=== PATIENT | female | born 1935 | race Caucasian/White ===

== ENCOUNTER 2020-12-02 08:48 | Outpatient (CLI) | payer MEDICARE, SELFPAY ==
--- NOTE | ~2020-12-02 | XR_ITS ---
EXAMINATION: XR chest 2V EXAM DATE: 12/02/2020 09:07 INDICATION: D64.9 - Anemia, unspecified, shortness of breath. TECHNIQUE: Frontal and lateral projections of the chest obtained and reviewed. There is no prior enio dy for comparison. FINDINGS: Cardiac monitoring device. The lungs are clear. There are no pleural effusions. The card iomediastinal silhouette is within normal limits. There is no pneumothorax suspected. The bones and soft tissues are unremarkable. There is aortic arteriosclerosis. IMPRESSION: No acute cardiopulmonary findings. Reviewed, dictated and finalized at location B. [employer]
--- NOTE | ~2020-12-02 | CT_ITS ---
EXAMINATION: CT abdomen pelvis w con INDICATION: Abnormal weight loss TECHNIQUE: Computed tomographic images of the abdomen and pelvis were obtained after the administrati on of 100 cc of Omnipaque 350 intravenous contrast. The dose-length product (DLP) was 345.20 mGy-cm. Automated exposure control and iterative reconstruction technique were employed. COMPARISON: None available FINDINGS: Minimal dependent atelectasis is present in the lung bases. The heart size is normal. Cysts of the liver measure up to 4 mm in the right hepatic lobe. The spleen, pancreas, gallbladder, and ad renal glands are normal. The kidneys are unremarkable. There is calcified atherosclerosis of the aort a and many of the other arteries. No pathologically enlarged abdominal or pelvic lymph nodes are iden tified. There is no free intraperitoneal gas or evidence of bowel obstruction. There is mild lumbar s pondylosis. IMPRESSION: 1. No CT correlate for the patient's symptoms. Reviewed, dictated and finalized at location A. 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
[2020-12-02 10:27] LABS: Basophils Percent Auto 0.6 % (0.2-1.2); Eosinophils Absolute Auto 0.1 K/mm3 (0-0.3); Eosinophils Percent Auto 1.3 % (0-4.4); Hematocrit 34.1 % (37.0-47.0); Hemoglobin 10.7 g/dL (12.0-15.0); Immature Granulocyte Absolute 0.03 K/mm3 (0.00-0.031); Immature Granulocyte Percent A 0.6 % (0-0.5); Immature Platelet Fraction Pct 7.3 % (0.9-11.2); Immature Reticulocyte Fraction 10.6 % (3.0-15.9); Lymphocytes Absolute Auto 1.21 K/mm3 (0.9-3.2); Lymphocytes Percent Auto 22.3 % (18.3-44.2); Mean Corpuscular HGB Conc 31.4 g/dl (32-36); Mean Corpuscular Hemoglobin 29.6 pg (26-34); Mean Corpuscular Volume 94.5 fl (80-100); Mean Platelet Volume 11.6 fl (7.4-10.4); Monocytes Absolute Auto 0.4 K/mm3 (0.1-0.6); Monocytes Percent Auto 8.1 % (2.6-8.5); Neutrophils Absolute Auto 3.7 K/mm3 (1.3-6.7); Neutrophils Percent Auto 67.1 % (45.5-73.1); Platelet Count Result 140 k/mm3 (150-375); Red Blood Count 3.61 M/mm3 (4.2-5.4); Reticulocyte Hemoglobin Conten 32.9 pg (28.2-35.7); Reticulocyte Percent 1.32 % (0.7-4.3); Reticulocytes Absolute 0.05 B/L (32.2-175.7); White Blood Count 5.4 K/mm3 (4.5-10.0)
== END 2020-12-02 08:49 | disposition home or self-care (01) ==
PROVIDERS: PCP Family Medicine; Visit Provider Physician Assistant Medical
DX: R63.4 Abnormal weight loss (principal); D64.9 Anemia, unspecified; I25.10 Atherosclerotic heart disease of native coronary artery without angina pectoris; M47.816 Spondylosis without myelopathy or radiculopathy, lumbar region
CPT/HCPCS: 36415; 71046; 74177; 85025; 85046; 85055; Q9967

== ENCOUNTER 2020-12-16 08:06 | Outpatient (CLI) | payer MEDICARE, SELFPAY ==
[2020-12-16 08:43] LABS: Alveolar/Arterial O2 Gradient 10.5 mmHg; Carboxyhemoglobin 0.2 % THb (0-2.0); Fractional Inspired Oxygen 21 %; HCO3 ABG 30.6 mEq/l (22.0-26.0); Methemoglobin ABG 0.2 %THb (0-1.5); Oxygen Content ABG 14.8 %vol (16.0-22.0); Oxygen Saturation ABG 93.8 % (95.0-100.0); Oxyhemoglobin 92.6 % THb (90.0-100.0); PCO2 ABG 55.6 mmHg (35.0-45.0); PO2 ABG 72.7 mmHg (80.0-100.0); PO2 FiO2 Ratio Arterial Blood 3.46 %; Total Hemoglobin 11.3 g/dL (12.0-18.0); pH ABG 7.358 (7.350-7.450)
[2020-12-16 08:44] LABS: Device ROOM AIR; Modified Allen's Test Pass
[2020-12-16 09:29] LABS: Iron 62 ug/dL (37-170)
[2020-12-16 09:39] LABS: Percent Iron Saturation 24 % (20-50)
[2020-12-16 10:30] LABS: Folic Acid > 20.0 ng/mL (2.76->20)
== END 2020-12-16 08:07 | disposition home or self-care (01) ==
PROVIDERS: PCP Family Medicine; Referring Provider Physician Assistant Medical
DX: D64.9 Anemia, unspecified (principal); R06.02 Shortness of breath; R63.4 Abnormal weight loss
CPT/HCPCS: 36415; 36600; 82375; 82607; 82728; 82746; 82805; 83050; 83540; 83550

== ENCOUNTER 2021-07-15 20:22 | Inpatient (IN) | payer MEDICARE, SELFPAY ==
--- NOTE | ~2021-07-15 | XR_ITS ---
XR hip LT 1V w AP pelvis DATE: 07/16/2021 20:59 INDICATION: Left bipolar hip replacement TECHNIQUE: Portable postoperative AP and crosstable lateral views of left hip COMPARISON: 07/15/2021 pelvis and left hip FINDINGS: There is resection of the left femoral head following left subcapital femoral neck fracture and placement of left bipolar hip prosthesis. There is normal alignment at the left hip. There is surgical drain subcutaneous emphysema along the left hip. Diffuse osteopenia. Right hip osteoarthritis. The pubic symphysis and sacroiliac joints are intact. IMPRESSION: Left bipolar hip replacement for recent subcapital left femoral neck fracture Reviewed, dictated and finalized at location A. IMPRESSION: Left bipolar hip replacement for recent subcapital left femoral nec k fracture
--- NOTE | ~2021-07-15 | XR_ITS ---
EXAMINATION: XR chest 1V portable DATE: 07/18/2021 10:10 INDICATION: Syncope. TECHNIQUE: A single frontal view of the chest was obtained. COMPARISON: Chest single view 07/15/2021, CT abdomen and pelvis 12/02/2020 FINDINGS: There is mild atelectasis in left mid and lower lung zones. No pleural effusion or pneumoth orax. The heart size is normal. There is an electronic implant overlying left chest. IMPRESSION: 1. Mild atelectasis in left mid and lower lung zones. Reviewed, dictated and finalized at location A.
--- NOTE | ~2021-07-15 | XR_ITS ---
EXAMINATION: XR hip RT 1V EXAM DATE: 07/16/2021 06:50 INDICATION: fx left hip. Right hip for orthopedic reference. TECHNIQUE: 2 frontal projections of the right hip. Comparison is made to prior examination from 2020. FINDINGS: There is moderate right hip primary osteoarthritis. There are no acute fractures or disloca tions identified. There is no subcutaneous gas. The soft tissue is unremarkable. There are no rad iopaque foreign bodies. IMPRESSION: Moderate right hip osteoarthritis. Reviewed, dictated and finalized at location A.
--- NOTE | ~2021-07-15 | XR_ITS ---
XR chest 1V DATE: 07/15/2021 21:04 INDICATION: Fall. Left subcapital femoral neck fracture TECHNIQUE: AP chest COMPARISON: PA and lateral chest FINDINGS: Electronic monitor is noted overlying the medial upper left thorax. Normal heart size. Aortic calcification. Diffuse osteopenia. There is moderate elevation right leaf of the diaphragm. No pulmonary infiltrate or consolidation, pleural effusion or pulmonary vascular congestion or pneumo thorax. IMPRESSION: No active cardiopulmonary disease Reviewed, dictated and finalized at location A.
--- NOTE | ~2021-07-15 | US_ITS ---
EXAMINATION: US carotid duplex BI EXAM DATE: 07/16/2021 10:39 INDICATION: Syncope. TECHNIQUE: Grayscale, color and pulsed Doppler images of the cervical carotid arteries were obtained . The degree of vessel stenosis is placed in one of the following categories: normal, <50% stenosis, 50-69% stenosis, >=70% stenosis but less than near-occlusion, near-occlusion, or occlusion. Note that percent stenosis relative to normal distal artery lumen diameter is indirectly measured from velocit y measurements as described by Win, et al. Radiology 2003; 229:340-346. There is no prior study fo r comparison. FINDINGS: RIGHT SIDE: Right common carotid artery peak systolic velocity (PSV in cm/s): 68 Right bulb/internal carotid artery peak systolic velocity (PSV in cm/s): 89 Right internal carotid artery end diastolic velocity (EDV in cm/s): 10 Right ICA/CCA peak systolic ratio: 1.3 Right external carotid artery peak systolic velocity (PSV in cm/s): 68 Right vertebral artery antegrade flow: yes There is no focal plaque identified. LEFT SIDE: Left common carotid artery peak systolic velocity (PSV in cm/s): 104 Left bulb/internal carotid artery peak systolic velocity (PSV in cm/s): 92 Left internal carotid artery end diastolic velocity (EDV in cm/s): 13 Left ICA/CCA peak systolic ratio: 0.9 Left external carotid artery peak systolic velocity (PSV in cm/s): 91 Left vertebral artery antegrade flow: yes There is no focal plaque identified. IMPRESSION: 1. Normal right internal carotid artery. 2. Normal left internal carotid artery. > Reviewed, dictated and finalized at location A.
--- NOTE | ~2021-07-15 | XR_ITS ---
XR hip LT 2V w AP pelvis DATE: 07/15/2021 21:03 INDICATION: Fall. Left hip pain TECHNIQUE: AP pelvis. AP and cross and lateral views of left hip COMPARISON: None FINDINGS: There is diffuse osteopenia. Normal alignment at the pubic symphysis and sacroiliac joints. No evidence of hip dislocation. There is mild bilateral hip osteoporosis. There is a left subcapital femoral neck fracture with mild superolateral displacement. IMPRESSION: Left subcapital femoral neck fracture Reviewed, dictated and finalized at location A.
--- NOTE | ~2021-07-15 | CT_ITS ---
EXAMINATION: CT brain wo con DATE: 07/19/2021 18:39 INDICATION: Syncope TECHNIQUE: Computed tomography (CT) of the head was performed without intravenous contrast. The mA wa s adjusted according to patient size. Iterative reconstruction technique was employed. Exam dose: 60 5.33 mGy-cm total exam DLP. COMPARISON: 09/22/2016 CT brain FINDINGS: Bilateral vertebral artery, basilar artery and prominent bilateral carotid siphon internal carotid artery calcifications. There is patchy nonspecific diminished attenuation of the subcortical and periventricular cerebral wh ite matter, likely due to chronic small vessel ischemic changes. Chronic left basal ganglia lacunar infarcts. No intracranial mass lesion or hemorrhage or recent cerebrovascular accident. No subdural or epidural hematoma. No fracture or bone destruction of the cranial vault. The mastoid air cells are normally developed and aerated. Included paranasal sinuses are unremarkable . IMPRESSION: Cerebral atherosclerosis and chronic small vessel ischemic changes of the cerebral white matter Chronic left basal ganglia lacunar infarcts Reviewed, dictated and finalized at Location A. Reviewed, dictated and finalized at location A.
--- NOTE | ~2021-07-15 | XR_ITS ---
XR surgery orthopedic DATE: 07/16/2021 20:04 INDICATION: Left bipolar hip replacement TECHNIQUE: Portable intraoperative radiograph COMPARISON: 07/11/2021 left hip FINDINGS: There is resection of the femoral head and placement of a femoral broach into the proximal femoral shaft. IMPRESSION: Resected femoral head and placement of femoral broach Reviewed, dictated and finalized at Location A. Reviewed, dictated and finalized at location A.
[2021-07-15 20:23] VITALS: BP 167/62; PULSE 88; RESP 18; TEMP 37.1; O2SAT 100
--- NOTE | 2021-07-15 20:47 | ECG_ITS ---
Measurements Intervals [place] Rate: 70 P: NE: 0 QRS: -32 QRSD: 154 T: 125 QT: 464 QTc: 503 Interpretive Statements SINUS RHYTHM LEFT AXIS DEVIATION LEFT BUNDLE BRANCH BLOCK BASELINE ARTIFACT- I, II, III, AVR, AVL, AVF, V1-V6 ABNORMAL ECG Electronically Signed On 07-16-2021 7:59:01 CDT by Alessandro Tracy D.O.
[2021-07-15 21:31] LABS: Basophils Percent Auto 0.4 % (0.2-1.2); Eosinophils Absolute Auto 0.1 K/mm3 (0-0.3); Eosinophils Percent Auto 0.8 % (0-4.4); Hematocrit 34.4 % (37.0-47.0); Hemoglobin 10.8 g/dL (12.0-15.0); Immature Granulocyte Absolute 0.05 K/mm3 (0.00-0.031); Immature Granulocyte Percent A 0.5 % (0-0.5); Lymphocytes Absolute Auto 1.19 K/mm3 (0.9-3.2); Lymphocytes Percent Auto 10.9 % (18.3-44.2); Mean Corpuscular HGB Conc 31.4 g/dl (32-36); Mean Corpuscular Hemoglobin 29.1 pg (26-34); Mean Corpuscular Volume 92.7 fl (80-100); Mean Platelet Volume 11.3 fl (7.4-10.4); Monocytes Absolute Auto 0.7 K/mm3 (0.1-0.6); Neutrophils Absolute Auto 8.9 K/mm3 (1.3-6.7); Neutrophils Percent Auto 81.4 % (45.5-73.1); Platelet Count Result 144 k/mm3 (150-375); Red Blood Count 3.71 M/mm3 (4.2-5.4); Red Cell Distribution Width 12.3 % (11.5-14.5); White Blood Count 10.9 K/mm3 (4.5-10.0)
[2021-07-15 21:42] LABS: Anion Gap 9 mmol/L (8-16); Blood Urea Nitrogen 16 mg/dL (7-17); Calcium 9.9 mg/dL (8.4-10.2); Carbon Dioxide 30 mmol/L (22-30); Chloride 100 mmol/L (98-107); Estimated CRCL calculation 37 ml/min; Estimated Glomerular Filt Rate 59; Glucose 110 mg/dL (65-110); Potassium 3.9 mmol/L (3.4-5.0); Sodium 139 mmol/L (137-145)
[2021-07-15] MEDS: ONDANSETRON INJ 4 MG/2 ML VIAL IV PUSH (21:43)
[2021-07-15] MEDS: HYDROmorphone HCL INJ (*CRX) 1 MG/ML SYR IV PUSH ×2 (21:43→23:52)
[2021-07-15 22:08] VITALS: BP 149/81; PULSE 74; RESP 24; O2SAT 100
--- NOTE | 2021-07-15 22:19 | ED.FALL ---
HPI - Fall General Chief Complaint: Fall Stated Complaint: fall/hip pain Time Seen by Provider: 07/15/21 21:06 Source: patient Mode of arrival: ambulatory Limitations: no limitations History of Present Illness HPI Narrative: Patient is an 85-year-old female complaining of left hip pain, 10 out of 10, dull, nonradiating, after she lost her balance and fell on her left side while trying to sit down to have dinner. Patient denies any head, neck, back or any other extremity pain/injury. Related Data Home Medications Medication Instructions Recorded Confirmed aspirin 81 mg tablet,delayed 81 mg PO DAILY 11/26/20 05/29/21 release donepezil 10 mg tablet 10 mg PO ONCE 11/26/20 05/29/21 duloxetine 60 mg capsule,delayed 60 mg PO DAILY 11/26/20 05/29/21 release ezetimibe 10 mg tablet 10 mg PO DAILY 11/26/20 05/29/21 glucosamine HCl 1,500 mg tablet 1,500 mg PO DAILY 11/26/20 05/29/21 hydrochlorothiazide 12.5 mg tablet 12.5 mg PO DAILY 11/26/20 05/29/21 amlodipine 2.5 mg tablet 2.5 mg PO DAILY 05/29/21 05/29/21 ferrous sulfate 325 mg (65 mg 325 mg PO DAILY 05/29/21 05/29/21 iron) tablet,delayed release memantine 10 mg tablet 10 mg PO BID tablet 05/29/21 05/29/21 atorvastatin 07/15/21 fexofenadine 60 mg PO Q12H 07/15/21 mirabegron [Myrbetriq] mg PO 07/15/21 nebivolol [Bystolic] mg 07/15/21 potassium chloride meq PO 07/15/21 quinapril mg 07/15/21 Allergies Allergy/AdvReac Type Severity Reaction Status Date / Time penicillin G Allergy Unknown BP ISSUES Verified 07/15/21 22:32 MAYBE Sulfa (Sulfonamide Allergy Unknown BP ISSUES Verified 07/15/21 22:32 Antibiotics) MAYBE Review of Systems Review of Systems: All systems reviewed & are unremarkable except as noted in HPI and below Constitutional: Constitutional: Denies body ache(s), Denies chills, Denies excessive sweating, Denies fatigue, Denies fever(s), Denies headache(s), Denies lethargy, Denies malaise, Denies weakness and Denies weight loss Eyes: Eyes: Denies blurry vision, Denies change in vision and Denies loss of vision ENT: Denies dizziness, Denies ear discharge, Denies headache(s), Denies lip swelling, Denies epistaxis, Denies nasal congestion, Denies neck pain, Denies throat swelling and Denies tongue swelling Cardiovascular: Cardiovascular: Denies chest pain, Denies chest pain at rest, Denies chest pain with activity, Denies diaphoresis, Denies rapid heart rate, Denies edema, Denies irregular heart rhythm, Denies lightheadedness, Denies palpitations, Denies dyspnea and Denies dyspnea on exertion Respiratory: Respiratory: Denies chest congestion, Denies cough, Denies hemoptysis, Denies dyspnea and Denies dyspnea on exertion Gastrointestinal: Gastrointestinal: Denies abdominal pain, Denies melena, Denies hematochezia, Denies diarrhea, Denies nausea, Denies vomiting and Denies hematemesis Musculoskeletal: Musculoskeletal: Denies neck pain and Denies numbness Neurologic: Denies Abnormal speech present, Denies abnormal gait, Denies confusion, Denies dizziness, Denies headache(s), Denies focal weakness, Denies loss of vision, Denies numbness, Denies Other visual disturbances, Denies Sensory deficit (Neuro) and Denies weakness Psychiatric: Psychiatric: Denies confusion, Denies depression, Denies auditory hallucinations, Denies homicidal ideation and Denies suicidal ideation Endocrine: Endocrine: Denies cold intolerance, Denies excessive sweating, Denies fatigue, Denies heat intolerance and Denies palpitations Hematologic/Lymphatic: Hematologic/Lymphatic: Denies easy bleeding and Denies easy bruising Allergic/Immunologic: Allergic/Immunologic: Denies lip swelling, Denies throat swelling and Denies tongue swelling PMFSH Past Medical History Medical History Anemia 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
[2021-07-15 23:22] LABS: INR 0.9; Prothrombin Time 12.4 Seconds (11.1-14.7)
[2021-07-15 23:23] LABS: Partial Thromboplastin Time 27.7 SECONDS (22.3-36.8)
[2021-07-15 23:51] VITALS: BP 151/77; PULSE 66; RESP 16; O2SAT 100
[2021-07-16] VITALS (16 sets, daily range): BP systolic 118–166; BP diastolic 49–78; PULSE 53–77; RESP 12–19; TEMP 35.9–36.7; O2SAT 96–100; BMI 22.9
--- NOTE | 2021-07-16 | ECHO_ITS ---
Patient Info Name: Qian Cheek Age: 85 years : 1935 Gender: Female Ht: 71 in Wt: 164 lbs BSA: 1.93 m2 HR: 58 bpm BP: 118 / 50 mmHg Heart Rhythm: Sinus Rhythm Technical Quality: Good Exam Date: 07/16/2021 3:32 PM Exam Location: Echo Lab Exam Room: 243 Patient Status: Inpatient Admit Date: 07/15/2021 Staff Ordering Physician: Slava Garcia MD [employer] Project Manager: Sybil Arteaga RDCS Attending Provider: Juli Oakley DO Referring Physician: Radha CARVAJAL; Exam Type: CA echo doppler color flow Study Info Indications - LBBB SOB Complete two-dimensional, color flow and Doppler transthoracic echocardiogram is performed. Summary 1. Complete two-dimensional, color flow and Doppler transthoracic echocardiogram is performed. 2. Left ventricular chamber dimension is normal. 3. Left ventricular systolic function is normal, estimated at 65-70%. 4. There is mildly increased left ventricular wall thickness. 5. The left ventricular diastolic function is grade II diastolic dysfunction. 6. Left atrial chamber dimension is mildly enlarged. 7. Right atrial chamber dimension is mildly enlarged. 8. There is mild mitral valve regurgitation. 9. There is mild tricuspid valve regurgitation. 10. Mild pulmonary hypertension, estimated pulmonary arterial systolic pressure is 39 mmHg. Left Ventricle Left ventricular chamber dimension is normal. Left ventricular systolic function is normal, estimated at 65-70%. There is mildly increased left ventricular wall thickness. The left ventricular diastolic function is grade II diastolic dysfunction. Right Ventricle Right ventricular chamber dimension is normal. Right ventricular systolic function is normal. Left Atria Left atrial chamber dimension is mildly enlarged. Right Atria Right atrial chamber dimension is mildly enlarged. Aortic Valve The aortic valve is trileaflet. There is mild aortic valve sclerosis. There is no aortic valve stenosis. There is trace aortic valve regurgitation. Pulmonic Valve The pulmonic valve is normal. There is no pulmonic valve stenosis. There is trace pulmonic regurgitation. Mitral Valve The mitral valve has normal leaflets. There is no mitral valve stenosis. There is mild mitral valve regurgitation. Tricuspid Valve The tricuspid valve leaflets are normal. There is no significant tricuspid valve stenosis. There is mild tricuspid valve regurgitation. Mild pulmonary hypertension, estimated pulmonary arterial systolic pressure is 39 mmHg. Pericardium/Pleural The pericardium appears normal. There is no pericardial effusion. Inferior Vena Cava Normal inferior vena cava with >50% collapse upon inspiration consistent with elevated right atrial pressure, 10 mmHg. Aorta The aortic root size at the sinus of Valsalva is normal. The prox ascending aorta size is normal. Left Ventricular Outflow Tract Name Value Normal LVOT 2D LVOT Diameter 2.0 cm LVOT Doppler LVOT Peak Gradient 5 mmHg LVOT Mean Gradient 3 mmHg LVOT VTI
--- NOTE | 2021-07-16 00:37 | ADMGEN ---
This patient, Qian Cheek, was admitted to Medical Room 243-. Patient/family oriented to hospital policies and general routines including ID bracelet, bed and alarms, visiting hours, pain management, procedures, bathroom and other care routines, personal items, smoking policy, room service/diet, and visiting hours. Information on how to activate the Rapid Response Team has been discussed. Patient/Family are encouraged to report perceived risks to care and to ask questions if they do not understand what they are told or what they should do.
--- NOTE | 2021-07-16 02:00 | PM.IMHP ---
H&P: HPI History of Present Illness Date/Time: 07/16/21 01:30 Chief Complaint: Fall with hip pain Narrative: 85-year-old female with past medical history of hypertension, hyperlipidemia, COPD on chronic home O2 and frequent falls who presented to the ER via EMS from [facility] after a fall resulting in hip pain. she reports that she went to go get her dinner plate and take it back to her dining room Table before she got the table her body listed to the left and she fell on her left side. She did not lose consciousness. She reports that she had immediate pain after she fell and was not able to get up. She reports that she felt somewhat lightheaded just prior to falling but did not have loss of consciousness she had 2 falls within the last month. She was not utilizing her walker at the time of the fall. She reports that her pain is currently a 3/10 in intensity but with movement of her lower extremity the pain is quite severe. She reports that she has been chronically short of breath for many years and he has had increased shortness of breath over the last several months. However she has not had to increase her home O2 settings. She reports she just cannot get a deep breath. she has a chronic cough and tickle in the right side of her throat. She has not been having any fevers or chills. She denies any recent ill contacts. She has not been having any chest pain, lower extremity swelling or palpitations. She denies any significant cardiac history. She denies any difficulty with urinary frequency or urgency. A Galindo catheter was placed in the ER. She has been having difficulty having loose stools sometimes up to 4 loose stools a night. She reports that her stools are chronically black in appearance due to her medications. The appearance of her stools have not changed. Her hemoglobin has remained stable for the last year. She reports the stools are usually small in amount but frequent. They are usually soft and mushy but not necessary watery. She has had some mild intermittent nausea that she associates statement with her loose stools. She has not had any vomiting. She reports that her weight has been stable. At the time of my evaluation the patient was actively shaking/ tremor ring. She reports that she frequently does this especially in times of stress. She denies feeling chilled. Review of Systems Review of Systems: 12 systems were reviewed with pertinent positives and negatives per HPI. Except as documented in the HPI, all other systems were reviewed and are negative. 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 Aashish Bee. 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 They at age 80. Father Prostate carcinoma Mother Victim of tornado Social
[2021-07-16] MEDS: LACTATED RINGERS 1,000 ML 80 ML IV CONT (02:03)
[2021-07-16 06:30] LABS: Add Urine Microscopic? YES; Appearance Urine Clear (Clear); Bilirubin Urine Negative (Negative); Blood Urine Trace-lysed (Negative); Color Urine Yellow (Yellow); Glucose Urine UA Negative (Negative); Ketones Urine Negative (Negative); Leukocyte Esterase Ur Negative LEU/UL (Negative); Nitrate Urine Negative (Negative); Protein Urine Negative (Negative); pH Urine 8.5 (5.0-9.0)
[2021-07-16] MEDS: LEVOTHYROXINE SODIUM 100 MCG TABLET PO (06:36)
--- NOTE | 2021-07-16 07:02 | PM.CNOR ---
Assessment and Plan Additional Plan Patient is an 85-year-old female who was brought to the emergency room last night with a displaced left subcapital Transcervical femoral neck fracture. She fell caring a plate of food. When she feels poorly and unsteady she will use a walker when she feels healthy and well she will walk without any gait aid. She lost her balance and fell onto her left side injuring her left hip. She denies any other injury. She has a history of some residual symptoms after an ankle fracture many years ago. She does report chronic numbness in her feet. She lives in an independent living facility. Her daughter gives her her medications every day. She wishes to be a DNR status. She is currently. She pointed that out to make. Her past medical history is significant for chronic shortness of breath. She does use oxygen. She also has a history of heaviness in her chest which she believes is related to her heart and she takes a baby aspirin daily for that consideration. She is not sure if she has chest pain because of her heart or because of her lungs. She has 2 brothers that had heart attacks. She has never smoked. Her chest x-ray showed no acute cardiopulmonary disease. EKG is still pending from last night although it says that is ordered. On exam she was very alert and oriented. She has had moderate pain all night the left hip. I placed a pillow under the left knee and calf and she felt that made her more comfortable. I will check her pain medications and modify them accordingly. She has a palpable 2+ dorsalis pedis pulse in left foot. The left leg is shortened and externally rotated. She reports diminished light touch sensation in both feet but she does wiggle her toes up and down. The skin in the lower extremity is normal appearing. In she moves her neck without discomfort in her shoulders. Again she denies any other symptoms other than pain left hip. Impression patient has a displaced subcapital left femoral neck fracture. I have discussed with her the treatment options which would include non operative treatment and surgical treatment consisting of a bipolar partial hip replacement. She denies having any chronic groin or lateral hip pain prior to her fall. I have discussed the risk of mortality. I explained that studies show that there is risk of mortality that is significant with both surgical and nonsurgical surgical treatment of this type of fracture. She has increased comorbidities as well the puts her at increased risk over the average patient based on her oxygen dependence and the possibility of significant underlying heart disease. I feel we should consult Cardiology to evaluate her based on her history of chest heaviness and fact that she has had 2 falls recently and the hospitalist has advised me she has also been shaking these last 2 weeks as well, Intermittently. I have discussed with her that during surgery she would not be considered a DNR as any cardiac arrhythmia would be treated and the drop in blood pressure suddenly would be treated by Anesthesia which is somewhat incompatible with a DNR status and she understands that. She does not want to be nonambulatory and wants to have her hip repaired and understands the risk of mortality and would be willing to suspend the DNR status as long as appropriate during the immediate perioperative Time. She does not wish to have the hip treated non operatively. I have discussed other surgical risks such as infection and blood clots. She has no personal or family history of DVT in I explained that she would be on a blood thinner for 5 weeks postoperatively. I discussed with her that she will need to be in a assisted facility as I do not feel she would do well returning to her independent living environment until she is recovered enough for her to be alone safely again. I explained that there are other risks of complications with surgery as well fracture dislocat
--- NOTE | 2021-07-16 07:19 | P.PNIM_ITS ---
Progress Note: A&P Assessment and Plan (1) Closed fracture of neck of left femur: Qualifiers: Encounter type: initial encounter Qualified Code(s): S72.002A - Fracture of unspecified part of neck of left femur, initial encounter for closed fracture Code(s): S72.002A - Fracture of unspecified part of neck of left femur, initial encounter for closed fracture Status: Acute Assessment and Plan: * Fall that caused hip fracture * Hip and pelvis show Left subcapital femoral neck fracture * Cardiology consulted for risk assessment * moderate risk for pulmonary complications * ortho consulted thank you for your help * Surgical procedure scheduled for today * Ortho to manage post care. (2) Syncope and collapse: Code(s): R55 - Syncope and collapse Status: Acute Assessment and Plan: * Cardiology consulted * Frequent falls * Orthostatic blood pressure when safe from ortho * neuro consulted as well * Echo * Carotid doppler (3) Essential hypertension: Code(s): I10 - Essential (primary) hypertension Status: Acute Assessment and Plan: * Current blood pressure 118/50 * Continue quinapril 40mg PO daily, bystolic 10mg PO daily, hydrochlorothiazide 12.5mg PO daily, amlodipine 2.5mg PO daily * trend blood pressure * Adjust medications as needed. (4) Dementia: Code(s): F03.90 - Unspecified dementia without behavioral disturbance Status: Acute Assessment and Plan: * Continue Aricept 10mg PO daily and Namenda 10mg PO BID * Trazodone 150mg PO at night (5) COPD (chronic obstructive pulmonary disease): Qualifiers: COPD type: unspecified COPD Qualified Code(s): J44.9 - Chronic obstructive pulmonary disease, unspecified Code(s): J44.9 - Chronic obstructive pulmonary disease, unspecified Status: Acute Assessment and Plan: * No evidence of acute COPD exacerbation. * Atrovent and albuterol neb Q6hr PRN for shortness of breath. * IS (6) KAYLA on CPAP: Code(s): G47.33 - Obstructive sleep apnea (adult) (pediatric); Z99.89 - Dependence on other enabling machines and devices Status: Acute Assessment and Plan: * auto titrating CPAP has been ordered. (7) Major depression, recurrent, chronic: Code(s): F33.9 - Major depressive disorder, recurrent, unspecified Status: Acute Assessment and Plan: * Continue Duloxetine 60mg PO daily and trazodone 150mg PO at night * Adjust medications as needed (8) Mixed hyperlipidemia: Code(s): E78.2 - Mixed hyperlipidemia Status: Acute Assessment and Plan: * Atorvastatin 40mg PO daily on hold for now * Continue when needed (9) Tremor of unknown origin: Code(s): R25.1 - Tremor, unspecified Status: Acute Assessment and Plan: * Uncontrolled tremors * Could be from medications, or undiagnosed condition * Neurology consulted thank you for your recommendations * monitor symptoms Time Spent With Patient Time with patient: Greater than 35 minutes Subjective Date/time seen: 07/16/21 06:50 Interval history: Patient is an 85 year old female with a past medical history of HTN, HLD, and depression that presented after a fall. Patient stated that she has been falling more lately, and stated that it is more syncope. She also complains of tremors.
--- NOTE | 2021-07-16 07:19 | PM.IMPN ---
Progress Note: A&P Assessment and Plan (1) Closed fracture of neck of left femur: Qualifiers: Encounter type: initial encounter Qualified Code(s): S72.002A - Fracture of unspecified part of neck of left femur, initial encounter for closed fracture Code(s): S72.002A - Fracture of unspecified part of neck of left femur, initial encounter for closed fracture Status: Acute Assessment and Plan: Fall that caused hip fracture Hip and pelvis show Left subcapital femoral neck fracture Cardiology consulted for risk assessment moderate risk for pulmonary complications ortho consulted thank you for your help Surgical procedure scheduled for today Ortho to manage post care. (2) Syncope and collapse: Code(s): R55 - Syncope and collapse Status: Acute Assessment and Plan: Cardiology consulted Frequent falls Orthostatic blood pressure when safe from ortho neuro consulted as well Echo Carotid doppler (3) Essential hypertension: Code(s): I10 - Essential (primary) hypertension Status: Acute Assessment and Plan: Current blood pressure 118/50 Continue quinapril 40mg PO daily, bystolic 10mg PO daily, hydrochlorothiazide 12.5mg PO daily, amlodipine 2.5mg PO daily trend blood pressure Adjust medications as needed. (4) Dementia: Code(s): F03.90 - Unspecified dementia without behavioral disturbance Status: Acute Assessment and Plan: Continue Aricept 10mg PO daily and Namenda 10mg PO BID Trazodone 150mg PO at night (5) COPD (chronic obstructive pulmonary disease): Qualifiers: COPD type: unspecified COPD Qualified Code(s): J44.9 - Chronic obstructive pulmonary disease, unspecified Code(s): J44.9 - Chronic obstructive pulmonary disease, unspecified Status: Acute Assessment and Plan: No evidence of acute COPD exacerbation. Atrovent and albuterol neb Q6hr PRN for shortness of breath. IS (6) KAYLA on CPAP: Code(s): G47.33 - Obstructive sleep apnea (adult) (pediatric); Z99.89 - Dependence on other enabling machines and devices Status: Acute Assessment and Plan: auto titrating CPAP has been ordered. (7) Major depression, recurrent, chronic: Code(s): F33.9 - Major depressive disorder, recurrent, unspecified Status: Acute Assessment and Plan: Continue Duloxetine 60mg PO daily and trazodone 150mg PO at night Adjust medications as needed (8) Mixed hyperlipidemia: Code(s): E78.2 - Mixed hyperlipidemia Status: Acute Assessment and Plan: Atorvastatin 40mg PO daily on hold for now Continue when needed (9) Tremor of unknown origin: Code(s): R25.1 - Tremor, unspecified Status: Acute Assessment and Plan: Uncontrolled tremors Could be from medications, or undiagnosed condition Neurology consulted thank you for your recommendations monitor symptoms Time Spent With Patient Time with patient: Greater than 35 minutes Subjective Date/time seen: 07/16/21 06:50 Interval history: Patient is an 85 year old female with a past medical history of HTN, HLD, and depression that presented after a fall. Patient stated that she has been falling more lately, and stated that it is more syncope. She also complains of tremors. She stated that the tremors are worse than normal, but she does experience them from time to time. She does have pain from the fall in the left hip that she rates 3-4/10 in a constant burning state. She did complain of being tired as she did not get any sleep through out the night. She did deny chest pain, shortness of breath, nausea, vomiting, abdominal pain, fevers, sweats, chills. Patient also complained about a headache. She does admit to hitting her head when she fell. Cardiology has been consulted for cardiac surgical risk stratification.
[2021-07-16 07:26] LABS: Squamous Epithelial Cell Urine Few /hpf (Few)
[2021-07-16 08:06] LABS: Hematocrit 33.6 % (37.0-47.0); Hemoglobin 10.4 g/dL (12.0-15.0); Immature Platelet Fraction Pct 7.7 % (0.9-11.2); Mean Corpuscular Hemoglobin 29.1 pg (26-34); Mean Corpuscular Volume 93.9 fl (80-100); Mean Platelet Volume 11.5 fl (7.4-10.4); Platelet Count Result 123 k/mm3 (150-375); Red Blood Count 3.58 M/mm3 (4.2-5.4); Red Cell Distribution Width 12.3 % (11.5-14.5); White Blood Count 8.4 K/mm3 (4.5-10.0)
--- NOTE | 2021-07-16 09:17 | PC.NURSE ---
Dr Garcia notified of cardio consult By Dr Kramer for medical clearance prior to surgery today at 1600.
[2021-07-16] MEDS: DULoxetine HCL 60 MG CAPSULE.DR PO (09:37)
[2021-07-16] MEDS: lisinopriL 20 MG TABLET 40 MG PO (09:37)
[2021-07-16] MEDS: amLODIPine BESYLATE 2.5 MG TABLET PO (09:37)
[2021-07-16] MEDS: FERROUS SULFATE 324 MG TABLET PO (09:37)
[2021-07-16] MEDS: FAMOTIDINE 20 MG TABLET 40 MG PO (09:37)
[2021-07-16] MEDS: MEMANTINE 10 MG TABLET PO ×2 (09:37→22:35)
[2021-07-16] MEDS: POTASSIUM CHLORIDE 20 MEQ TABLET PO (09:38)
[2021-07-16] MEDS: NEBIVOLOL HCL 5 MG TABLET 10 MG PO (09:38)
[2021-07-16] MEDS: MIRABEGRON 50 MG ER TABLET PO (09:38)
[2021-07-16] MEDS: DONEPEZIL HCL 10 MG TABLET PO (09:38)
[2021-07-16] MEDS: hydroCHLOROthiazide 12.5 MG CAPSULE PO (09:39)
[2021-07-16 09:51] LABS: Vitamin D 25 Hydroxy 46.5 ng/mL
--- NOTE | 2021-07-16 10:04 | PM.CNCAR ---
Assessment and Plan Assessment and plan (1) Preop cardiovascular exam: Code(s): Z01.810 - Encounter for preprocedural cardiovascular examination Status: Acute Assessment and Plan: She is at [id number] risk of having perioperative cardiovascular complications. She has chronic chest pain. I discussed this with her daughter and her daughter states she has been having complaints of chest pain for approximately 10 years. She has had stress testing in the past and in reviewing her primary tire builder's records, the chest pain does not seem to be new and her stress test previously was normal and she had a preserved ejection fraction. I do not think that further ischemic workup is needed prior to surgery. With simply continue her cardiac regimen including beta-deann aspirin and her other regimen perioperatively. (2) Closed fracture of neck of left femur: Qualifiers: Encounter type: initial encounter Qualified Code(s): S72.002A - Fracture of unspecified part of neck of left femur, initial encounter for closed fracture Code(s): S72.002A - Fracture of unspecified part of neck of left femur, initial encounter for closed fracture Status: Acute Assessment and Plan: Followed by Orthopedic surgery (3) Essential hypertension: Code(s): I10 - Essential (primary) hypertension Status: Acute Assessment and Plan: Above goal (4) Chest pain: Code(s): R07.9 - Chest pain, unspecified Status: Acute Assessment and Plan: This is a chronic problem and does is not new. (5) Chronic respiratory failure: Code(s): J96.10 - Chronic respiratory failure, unspecified whether with hypoxia or hypercapnia Status: Acute Assessment and Plan: On chronic oxygen and followed by pulmonology (6) Left bundle branch block: Code(s): I44.7 - Left bundle-branch block, unspecified Status: Acute Assessment and Plan: This is also a chronic and not new bundle branch block. Will order a 2D echocardiogram Doppler to establish an ejection fraction. History of Present Illness History of Present Illness Consult date/time: 07/16/21 10:04 Requesting physician: Harley Kramer MD Consult reason: chest pain and pre-op evaluation Reason For Visit: Left hip fracture Narrative: Date of service 07/16/2021 Reason for consultation: Preop evaluation, chest pain Requesting provider Dr. Kramer History: Patient is an 85-year-old female who [facility] who was carrying her dinner plate and she fell to the left side hitting her left hip which resulted in a left femur fracture at the neck. She did say that she had some chest discomfort and this has led to Cardiology consultation prior to her undergoing ORIF of her hip. She does see cardiology at [facility] and I did review her records over the past several years. It appears that she has a longstanding history of chronic chest pain with a negative stress test approximately 2 and half to 3 years ago. She has a preserved ejection fraction at last evaluation. 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 Patient also has some forgetfulness and dementia. She states however that she has been having some chest tightness and heaviness that occurs ?a lot of the time ?. It is frequent states that she she also has some chronic shortness of breath. She has no paroxysmal nocturnal dyspnea, edema, true syncope or palpitations. I did talk to her daughter Charline who states that she has a chronic chest pain history. She states that she has been having chest pain in complaints of chest pain for about 10 years. She and family have not wish to pursue further workup regarding her chest pain. She has been tested extensively by her integrative medicine physician as well as tire builder in the past. Review of Systems Review of Systems: All systems reviewed & are u
--- NOTE | 2021-07-16 10:11 | PC.NURSE ---
This patient, Qian Cheek, was transferred to [ Ultrasound] on 07/16/21 at 1012.
--- NOTE | 2021-07-16 10:46 | PC.NURSE ---
This patient, Qian Cheek, was received from [Ultrasound ] on 07/16/21 at 1046.
[2021-07-16] MEDS: LORATADINE 10 MG TABLET PO (11:16)
--- NOTE | 2021-07-16 15:16 | WPDANESEPP ---
Anes - Eval Pre Procedure Procedure: Operation Date: 07/16/21 16:00 Proposed Procedures p Left Bipolar Hip Replacement(Left) - Harley Kramer MD Date/Time: 07/16/21 15:16 Pre Op Diagnosis: Left hip fracture Patient Data Age: 85 Gender: F Height: 1.8 m Weight: 74.6 kg Last Vital Signs Temp 35.9 C L 07/16/21 14:00 Pulse 60 07/16/21 14:00 Resp 16 07/16/21 14:00 BP 153/50 H 07/16/21 14:00 Pulse Ox 100 07/16/21 14:00 Allergies Allergy/AdvReac Type Severity Reaction Status Date / Time penicillin G Allergy Unknown BP ISSUES Verified 07/15/21 22:32 MAYBE Sulfa (Sulfonamide Allergy Unknown BP ISSUES Verified 07/15/21 22:32 Antibiotics) MAYBE Home Medications Medication Instructions Recorded Confirmed Type famotidine 40 mg tablet 40 mg PO DAILY #90 tablet 05/03/20 07/16/21 Rx aspirin 81 mg tablet,delayed 81 mg PO DAILY 11/26/20 07/16/21 History release donepezil 10 mg tablet 10 mg PO DAILY 11/26/20 07/16/21 History duloxetine 60 mg capsule,delayed 60 mg PO DAILY 11/26/20 07/16/21 History release ezetimibe 10 mg tablet 10 mg PO DAILY 11/26/20 07/16/21 History glucosamine HCl 1,500 mg tablet 1,500 mg PO DAILY 11/26/20 07/16/21 History hydrochlorothiazide 12.5 mg tablet 12.5 mg PO DAILY 11/26/20 07/16/21 History celecoxib 200 mg capsule 200 mg PO DAILY #90 cap 04/22/21 07/16/21 Rx amlodipine 2.5 mg tablet 2.5 mg PO DAILY 05/29/21 07/16/21 History ferrous sulfate 325 mg (65 mg 325 mg PO DAILY 05/29/21 07/16/21 History iron) tablet,delayed release memantine 10 mg tablet 10 mg PO BID tablet 05/29/21 07/16/21 History atorvastatin 40 mg PO DAILY 07/15/21 07/16/21 History mirabegron [Myrbetriq] 50 mg PO DAILY 07/15/21 07/16/21 History nebivolol [Bystolic] 10 mg PO DAILY 07/15/21 07/16/21 History potassium chloride 20 meq PO DAILY 07/15/21 07/16/21 History quinapril 40 mg PO DAILY 07/15/21 07/16/21 History fexofenadine [Shania] 180 mg PO DAILY 07/16/21 07/16/21 History levothyroxine 100 mcg PO DAILY 07/16/21 07/16/21 History trazodone 150 mg PO HS 07/16/21 07/16/21 History Laboratory Tests 07/15/21 07/15/21 07/15/21 21:22 21:25 21:25 WBC 10.9 K/mm3 H K/mm3 (4.5-10.0) RBC 3.71 M/mm3 L M/mm3 (4.2-5.4) Hgb 10.8 g/dL L g/dL (12.0-15.0) Hct 34.4 % L % (37.0-47.0) MCV 92.7 fl fl (80-100) MCH 29.1 pg pg (26-34) MCHC 31.4 g/dl L g/dl (32-36) RDW 12.3 % % (11.5-14.5) Plt Count 144 k/mm3 L k/mm3 (150-375) MPV 11.3 fl H fl (7.4-10.4) Immature Gran % (Auto) 0.5 % % (0-0.5) Neut % (Auto) 81.4 % H % (45.5-73.1) Lymph % (Auto) 10.9 % L % (18.3-44.2) Anson % (Auto) 6.0 % % (2.6-8.5) Eos % (Auto) 0.8 % % (0-4.4) Baso % (Auto) 0.4 % % (0.2-1.2) Lymph # (Auto) 1.19 K/mm3 K/mm3 (0.9-3.2) Anson # (Auto) 0.7 K/mm3 H K/mm3 (0.1-0.6) Eos # (Auto) 0.1 K/mm3 K/mm3 (0-0.3) Baso # (Auto) 0.0 K/mm3 K/mm3 (0.0-0.1) Abs Immat Gran (auto) 0.05 K/mm3 H K/mm3 (0.00-0.031) Absolute Neuts (auto) 8.9 K/mm3 H K/mm3 (1.3-6.7) Absolute Nucleated RBC 0.0 K/mm3 K/mm3 (0.0-0.012) Nucleated RBC % 0.0 % % (0.0-0.2) % Immature Plt Fraction PT 12.4 Seconds Seconds (11.1-14.7) INR 0.9 APTT 27.7 SECONDS SECONDS (22.3-36.8) Sodium 139 mmol/L mmol/L (137-145) Potassium 3.9 mmol/L mmol/L (3.4-5.0) Chloride 100 mmol/L mmol/L (98-107) Carbon Dioxide 30 mmol/L mmol/L (22-30) Anion Gap 9 mmol/L mmol/L (8-16) BUN 16 mg/dL mg/dL (7-17) Creatinine 0.90 mg/dL mg/dL (0.7-1.0) Estim Creat Clear Calc 37 ml/min ml/min Estimated GFR 59 (59 - ) Glucose 110 mg/dL mg/dL (65-110) Calcium 9.9 mg/dL mg
--- NOTE | 2021-07-16 15:58 | WPDHPUPDATE1 ---
History and Physical Update Update Date/Time: 07/16/21 15:58 History and Physical has been reviewed, including an updated exam of the patient. There are NO changes in the patient's condition. Risks, benefits, and alternatives have been discussed and questions answered. Patient agrees to proceed with procedure.
--- NOTE | 2021-07-16 16:18 | WPDNEURCNPN ---
Assessment and Plan Additional Plan documented closed fracture of the left femur neck but otherwise neurological exam is nonfocal patient had the Doppler study of the carotid which are negative and other studies are pending routine blood studies are normal Consult date: 07/16/21 Time Seen: 09:30 HPI: Qian Cheek is a 85 year old female has been admitted to the hospital for the complaints of fall resulting in the hip pain in addition to the history of 1. Hypertension 2. Hyperlipidemia 3. COPD for which patient is on chronic home oxygen she was brought to the hospital from the ED in [facility] after falling and complaining of the hip pain reportedly she went to get her dinner plate and take it back to her dining room and she fell on her left side though she did not become unconscious she immediately developed the pain and was unable to get up she did feel somewhat lightheaded she was not using her walker at the time of the fall she has been chronically short of breath for many years and has had increasing shortness of breath over the last several months though she has not had to increase her home oxygen settings she also has complained of chronic cough he had a placement of 40s catheter in the emergency room she gave the history of chronic black stools though the appearance has not changed for a while, her past history is consistent with the ataxia major depression, and primary generalized osteoarthritis with urge incontinence of the bladder as well , she has undergone history reduction and open fixation of the fracture of the right ankle in the past but no major back surgery otherwise Review of Systems Review of Systems: All systems reviewed & are unremarkable except as noted in HPI and below PMFSH Past Medical History Medical History Anemia Iron studies November 2020 more within normal limits 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 Aashish Bee. 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 They at age 80. Father Prostate carcinoma Mother Victim of tornado Social History Social History Social History: She resides at [facility]. She states that she has been there for approximately 7 years. She moved here from [place] to be DNR her son and [id number]. She used to work at a [employer]. She is a lifelong nonsmoker and does not drink alcohol. She has 3 children who are reportedly healthy. Primary care physician: Dr. Talon Mcgovern Code status: Full code Healthcare power of commonwealth attorney: Yosvany (son) and his . Smoking status: Never smoker Alcohol intake: never Substance use: never Gender identity (if verbalized by the patient): Female Spiritual care concerns: No Meds Home Medications and Allergies Home Medications Medication Instruc
--- NOTE | 2021-07-16 17:22 | PC.NURSE ---
To OR per [bed], IV [running Vanco ]. Report given to [Cat].
[2021-07-16] MEDS: LACTATED RINGERS 1,000 ML 30 ML IV CONT ×2 (17:43→21:01)
--- NOTE | 2021-07-16 18:48 | SUR.PREOP ---
TRANSPORTED TO OR AT 1847.
[2021-07-16] MEDS: ceFAZolin SODIUM 1 GM VIAL 2 GM IVPB (19:10)
[2021-07-16] MEDS: TRANEXAMIC ACID 1,000 MG/10 ML AMPUL 1000 MG IVPB (19:12)
[2021-07-16] MEDS: ceFAZolin SODIUM 1 GM VIAL 3 GM IRRIGATION (19:28)
--- NOTE | 2021-07-16 19:37 | WPDANESEFPP ---
Anes - Eval Final PreProcedure Day of Procedure 07/16/21 19:37 Patient weight: normal Heart: regular rate and rhythm Lungs: decreased breath sounds Airway: Mallampati scale class 1 Neurological: alert and oriented Last oral intake: >/= 8 hours ASA classification: IV Emergent: no Anesthetic plan: proceed Anesthesia type and monitoring: general Informed Consent: The patient's anesthetic plan and its attendant risks and benefits were discussed with the patient/family/POA. Questions were solicited and answers provided to the satisfaction of the patient/family/POA.
[2021-07-16] MEDS: ceFAZolin SODIUM 1 GM VIAL IV PUSH (20:10)
[2021-07-16] MEDS: TRANEXAMIC ACID 1,000 MG/10 ML AMPUL 1000 MG IV PUSH (20:12)
--- NOTE | 2021-07-16 20:44 | W.PM.PROC2 ---
Procedure Note - Detailed Date of Procedure 07/16/21 Pre-op Diagnosis Garden 4 displaced left femoral neck fracture Post-op Diagnosis same Procedure Performed Bipolar hemiarthroplasty left hip Surgeon Harley Kramer MD Patternmaker Bench siobhan Anesthesia general Indications Pain, inability to walk Findings Same Description of Procedure Patient was brought to the operating room and general anesthesia was administered. She received 2 g Ancef, 1 g of tranexamic acid, weight based vancomycin preoperatively. She was placed in the lateral decubitus position left hip prepped draped usual fashion. Before we transferred her we did scrub her hip thoroughly with a chlorhexidine cloth. A 6 in longitudinal midline incision was used and a and the fascia was incised in line with the incision. The anterior 50% of gluteus medius and gluteus minimus were elevated off the greater trochanter. The capsule was incised superiorly up to the level of the glenoid labrum and elevated off the anterior femur. Provisional femoral neck osteotomy was made. The femoral head was removed. It measured 47 and 0.5 mm in diameter. The 48 fit well. The femur was broached to a size 5 which seemed to obtain good torsional stability. We obtained intraoperative x-ray and we could see our neck cut was still a little bit high. The hip was quite stable with the +1 0.5 neck standard offset. The broach was countersunk another 4 mm and we calcar planed and carefully evaluated the torsional stability of the broach in her bone and there was a little bit of wiggle on closer inspection. We went up to a 6 and we were able to insert the 6 down to the level of the femoral neck cut and this obtained excellent torsional stability as well as axial stability. We placed the size 6 Actis stem with a collar and this seated fully onto the femoral neck. Femoral neck bone was fairly thick that location. Excellent stability the stem was achieved. We trialed 1 last time with the 1.5 neck and had appropriate stability and soft tissue tension equal leg lengths. The 1.5 head was assembled into the 48 bipolar and after thorough irrigation wound and acetabulum the hip was reduced and stability reconfirmed. Cartilage in the acetabulum was intact in the was minimal fraying of the anterior superior labrum otherwise normal labrum also. Capsule was reapproximated with 2. Ethibond abductor was reattached to the greater trochanter with 2. Ethibond 5. Ethibond through bone fascia closed with 2. Vicryl as a running 1. Unidirectional barbed Stratafix suture skin closed to subcutaneous Vicryl and glue EBL was 200 cc. 3rd g Ancef 2nd g tranexamic acid were given time wound closure. Blood loss was estimated 200 cc. There were no complications. I felt her bone quality was adequate to allow 50% weight-bearing postoperatively. The Implants Actis press fit stem Estimated Blood Loss 200 Drains Yes Packing No Pathology yes Complications No immediate complications Condition stable Disposition PACU
[2021-07-16] MEDS: traZODone HCL 50 MG TABLET 150 MG PO (22:34)
[2021-07-16] MEDS: DEXTROSE 5%/0.45% SOD CHL 1,000 ML 80 ML IV CONT (22:50)
[2021-07-17] VITALS (17 sets, daily range): BP systolic 122–139; BP diastolic 40–68; PULSE 49–92; RESP 16–20; TEMP 36.1–37.2; O2SAT 94–100
[2021-07-17] MEDS: oxyCODONE HCL (*CRX) 2.5 MG TAB IR PO ×7 (01:03→23:59)
--- NOTE | 2021-07-17 01:26 | PC.NURSE ---
Patient returned to room 243 per bed @2230 07/16. Report received from Marylu MACK.
[2021-07-17 05:41] LABS: Basophils Percent Auto 0.1 % (0.2-1.2); Eosinophils Percent Auto 0.1 % (0-4.4); Hematocrit 28.2 % (37.0-47.0); Hemoglobin 8.6 g/dL (12.0-15.0); Immature Granulocyte Absolute 0.04 K/mm3 (0.00-0.031); Immature Granulocyte Percent A 0.4 % (0-0.5); Immature Platelet Fraction Pct 8.2 % (0.9-11.2); Lymphocytes Absolute Auto 0.51 K/mm3 (0.9-3.2); Lymphocytes Percent Auto 5.5 % (18.3-44.2); Mean Corpuscular HGB Conc 30.5 g/dl (32-36); Mean Corpuscular Hemoglobin 28.7 pg (26-34); Mean Platelet Volume 11.5 fl (7.4-10.4); Monocytes Absolute Auto 0.5 K/mm3 (0.1-0.6); Monocytes Percent Auto 4.9 % (2.6-8.5); Neutrophils Absolute Auto 8.2 K/mm3 (1.3-6.7); Platelet Count Result 105 k/mm3 (150-375); Red Cell Distribution Width 12.4 % (11.5-14.5); White Blood Count 9.2 K/mm3 (4.5-10.0)
[2021-07-17 05:58] LABS: Anion Gap 6 mmol/L (8-16); Blood Urea Nitrogen 18 mg/dL (7-17); Calcium 8.5 mg/dL (8.4-10.2); Carbon Dioxide 27 mmol/L (22-30); Chloride 95 mmol/L (98-107); Estimated CRCL calculation 40 ml/min; Estimated Glomerular Filt Rate 53; Glucose 220 mg/dL (65-110); Potassium 3.9 mmol/L (3.4-5.0); Sodium 128 mmol/L (137-145)
--- NOTE | 2021-07-17 06:03 | P.PNIM_ITS ---
Progress Note: A&P Assessment and Plan (1) Closed fracture of neck of left femur: Qualifiers: Encounter type: initial encounter Qualified Code(s): S72.002A - Fracture of unspecified part of neck of left femur, initial encounter for closed fracture Code(s): S72.002A - Fracture of unspecified part of neck of left femur, initial encounter for closed fracture Status: Acute Assessment and Plan: * Fall, Hip and pelvis xray shows Left subcapital femoral neck fracture * Cardiology consulted for risk assessment, moderate risk for pulmonary complications * Post op day 1 * ortho consulted thank you for your help, surgical intervention on 07/16/21 * Ortho to manage post care. * Pain: Tylenol IV Q6hr terence, Morphine 2mg IV Q1Hr PRN, Roxicodone 5mg Q4hr PRN and 2.5mg PO Q4hr TERENCE * Bowel: Senokot and Mirlax * Anti-emetic: Zofran 4mg Q4HR PRN * Antibiotics: Ancef 1gm Q8hr terence x 3 bags, Vanc 1000mg IV Q12HR x 2 bags * DVT Prophylaxis: Lovenox 40mg daily (2) Anemia: Code(s): D64.9 - Anemia, unspecified Status: Acute Assessment and Plan: * H/H are down since surgery * H/H upon admission 10.4/33.6 today 8.6/28.2 * continue to trend * Labs in the am (3) Syncope and collapse: Code(s): R55 - Syncope and collapse Status: Acute Assessment and Plan: * Cardiology consulted * Frequent falls * Orthostatic blood pressure when safe from ortho * neuro consulted * Echo- * Carotid doppler- Normal right and Left carotid artery (4) Essential hypertension: Code(s): I10 - Essential (primary) hypertension Status: Acute Assessment and Plan: * Current blood pressure 122/44 * Continue quinapril 40mg PO daily, bystolic 10mg PO daily, hydrochlorothiazide 12.5mg PO daily, amlodipine 2.5mg PO daily * trend blood pressure * Adjust medications as needed. (5) Dementia: Code(s): F03.90 - Unspecified dementia without behavioral disturbance Status: Acute Assessment and Plan: * Continue Aricept 10mg PO daily and Namenda 10mg PO BID * Trazodone 150mg PO at night (6) COPD (chronic obstructive pulmonary disease): Qualifiers: COPD type: unspecified COPD Qualified Code(s): J44.9 - Chronic obstructive pulmonary disease, unspecified Code(s): J44.9 - Chronic obstructive pulmonary disease, unspecified Status: Acute Assessment and Plan: * No evidence of acute COPD exacerbation. * Atrovent and albuterol neb Q6hr PRN for shortness of breath. * IS post surgery (7) KAYLA on CPAP: Code(s): G47.33 - Obstructive sleep apnea (adult) (pediatric); Z99.89 - Dependence on other enabling machines and devices Status: Acute Assessment and Plan: * auto titrating CPAP (8) Major depression, recurrent, chronic: Code(s): F33.9 - Major depressive disorder, recurrent, unspecified Status: Acute Assessment and Plan: * Continue Duloxetine 60mg PO daily and trazodone 150mg PO at night * Adjust medications as needed (9) Mixed hyperlipidemia: Code(s): E78.2 - Mixed hyperlipidemia Status: Acute Assessment and Plan: * Atorvastatin 40mg PO daily on hold for now * Continue when able (10) Tremor of unknown origin: Code(s): R25.1 - Tremor, unspecified Status: Acute Assessment
--- NOTE | 2021-07-17 06:03 | PM.IMPN ---
Progress Note: A&P Assessment and Plan (1) Closed fracture of neck of left femur: Qualifiers: Encounter type: initial encounter Qualified Code(s): S72.002A - Fracture of unspecified part of neck of left femur, initial encounter for closed fracture Code(s): S72.002A - Fracture of unspecified part of neck of left femur, initial encounter for closed fracture Status: Acute Assessment and Plan: Fall, Hip and pelvis xray shows Left subcapital femoral neck fracture Cardiology consulted for risk assessment, moderate risk for pulmonary complications Post op day 1 ortho consulted thank you for your help, surgical intervention on 07/16/21 Ortho to manage post care. Pain: Tylenol IV Q6hr terence, Morphine 2mg IV Q1Hr PRN, Roxicodone 5mg Q4hr PRN and 2.5mg PO Q4hr TERENCE Bowel: Senokot and Mirlax Anti-emetic: Zofran 4mg Q4HR PRN Antibiotics: Ancef 1gm Q8hr terence x 3 bags, Vanc 1000mg IV Q12HR x 2 bags DVT Prophylaxis: Lovenox 40mg daily (2) Anemia: Code(s): D64.9 - Anemia, unspecified Status: Acute Assessment and Plan: H/H are down since surgery H/H upon admission 10.4/33.6 today 8.6/28.2 continue to trend Labs in the am (3) Syncope and collapse: Code(s): R55 - Syncope and collapse Status: Acute Assessment and Plan: Cardiology consulted Frequent falls Orthostatic blood pressure when safe from ortho neuro consulted Echo- Carotid doppler- Normal right and Left carotid artery (4) Essential hypertension: Code(s): I10 - Essential (primary) hypertension Status: Acute Assessment and Plan: Current blood pressure 122/44 Continue quinapril 40mg PO daily, bystolic 10mg PO daily, hydrochlorothiazide 12.5mg PO daily, amlodipine 2.5mg PO daily trend blood pressure Adjust medications as needed. (5) Dementia: Code(s): F03.90 - Unspecified dementia without behavioral disturbance Status: Acute Assessment and Plan: Continue Aricept 10mg PO daily and Namenda 10mg PO BID Trazodone 150mg PO at night (6) COPD (chronic obstructive pulmonary disease): Qualifiers: COPD type: unspecified COPD Qualified Code(s): J44.9 - Chronic obstructive pulmonary disease, unspecified Code(s): J44.9 - Chronic obstructive pulmonary disease, unspecified Status: Acute Assessment and Plan: No evidence of acute COPD exacerbation. Atrovent and albuterol neb Q6hr PRN for shortness of breath. IS post surgery (7) KAYLA on CPAP: Code(s): G47.33 - Obstructive sleep apnea (adult) (pediatric); Z99.89 - Dependence on other enabling machines and devices Status: Acute Assessment and Plan: auto titrating CPAP (8) Major depression, recurrent, chronic: Code(s): F33.9 - Major depressive disorder, recurrent, unspecified Status: Acute Assessment and Plan: Continue Duloxetine 60mg PO daily and trazodone 150mg PO at night Adjust medications as needed (9) Mixed hyperlipidemia: Code(s): E78.2 - Mixed hyperlipidemia Status: Acute Assessment and Plan: Atorvastatin 40mg PO daily on hold for now Continue when able (10) Tremor of unknown origin: Code(s): R25.1 - Tremor, unspecified Status: Acute Assessment and Plan: Uncontrolled tremors Could be from medications, or undiagnosed condition Neurology consulted thank you for your recommendations monitor symptoms Time Spent With Patient Time with patient: Greater than 35 minutes Subjective Date/time seen: 07/17/21 06:03 Interval history: Patient 85 year old female who is here after a fall and hip fracture. 07/17/21 patient was taken to the OR for a left hip repair with Dr. Kramer. Today she stated that she is not feeling very well. She really can not describe to me why she feels the way that she does, hawa
[2021-07-17] MEDS: LEVOTHYROXINE SODIUM 100 MCG TABLET PO (06:05)
--- NOTE | 2021-07-17 07:13 | WPDANESPN ---
Anes - Prog Note Post-Op Date/Time: 07/17/21 07:13 Cardiovascular status: normal Respiratory status: normal Airway patency: baseline Mental status: baseline Post-Op hydration status: normal Vital Signs: Last Vital Signs Temp 97.0 F L 07/17/21 04:33 Pulse 54 L 07/17/21 04:33 Resp 16 07/17/21 04:33 BP 122/44 L 07/17/21 04:33 Pulse Ox 100 07/17/21 04:33 Pain Score (VAS): 3 I/O: Intake & Output 07/16/21 07/16/21 07/17/21 15:59 23:59 07:59 Intake Total 65 500 480 Output Total 540 250 Balance 65 -40 230 Laboratory Tests 07/17/21 05:15 07/17/21 05:15 07/16/21 07/16/21 07/16/21 03:24 07:45 07:45 WBC 8.4 RBC 3.58 L Hgb 10.4 L Hct 33.6 L MCV 93.9 MCH 29.1 MCHC 31.0 L RDW 12.3 Plt Count 123 L MPV 11.5 H Immature Gran % (Auto) Neut % (Auto) Lymph % (Auto) [place] % (Auto) Eos % (Auto) Baso % (Auto) Lymph # (Auto) [place] # (Auto) Eos # (Auto) Baso # (Auto) Abs Immat Gran (auto) Absolute Neuts (auto) Absolute Nucleated RBC Nucleated RBC % % Immature Plt Fraction 7.7 Sodium Potassium Chloride Carbon Dioxide Anion Gap BUN Creatinine Estim Creat Clear Calc Estimated GFR Glucose Calcium Vitamin D 25-Hydroxy 46.5 Ur Squamous Epith Cells Few 07/17/21 07/17/21 05:15 05:15 WBC 9.2 RBC 3.00 L Hgb 8.6 L Hct 28.2 L MCV 94.0 MCH 28.7 MCHC 30.5 L RDW 12.4 Plt Count 105 L MPV 11.5 H Immature Gran % (Auto) 0.4 Neut % (Auto) 89.0 H Lymph % (Auto) 5.5 L [place] % (Auto) 4.9 Eos % (Auto) 0.1 Baso % (Auto) 0.1 L Lymph # (Auto) 0.51 L [place] # (Auto) 0.5 Eos # (Auto) 0.0 Baso # (Auto) 0.0 Abs Immat Gran (auto) 0.04 H Absolute Neuts (auto) 8.2 H Absolute Nucleated RBC 0.0 Nucleated RBC % 0.0 % Immature Plt Fraction 8.2 Sodium 128 L Potassium 3.9 Chloride 95 L Carbon Dioxide 27 Anion Gap 6 L BUN 18 H Creatinine 1.00 Estim Creat Clear Calc 40 Estimated GFR 53 L Glucose 220 H Calcium 8.5 Vitamin D 25-Hydroxy Ur Squamous Epith Cells Post-procedural complaints: none Patient Feedback: Patient satisfied with anesthetic care.
--- NOTE | 2021-07-17 07:29 | PM.PNORT ---
Progress Note: A&P Additional Plan Postop day 1 after Press-Fit bipolar hemiarthroplasty left hip. Patient is alert and oriented. She slept well last night and is in good spirits this morning. She has mild pain at the left hip. She wiggles her toes and has unchanged sensation in her feet. Her incision is intact with no blood on the dressing. Her drain has been removed. I talked her about removal of the Galindo catheter and she is willing to have this removed. She normally has incontinence and will use an adult diaper if needed. She will be mobilized today up to the chair. She has been in bed for the last 36 hours and may feel somewhat weak. I spoke to her son on the phone last night who advised me that he has been trying to get her to use a walker on a consistent basis for this past year. She has had a couple falls prior to this and would probably be best for the patient use a walker moving forward 100% of the time to help protect her from further falls in the future. Her hemoglobin this morning is 8.6 indicating a significant acute blood loss anemia. Her admission hemoglobin was very low at 10 point 6 so she has chronic anemia. Her platelets are 105,000. There were low at admission as well at 120,000 I believe. She is on aspirin chronically and I am going to use Lovenox 13816 mg daily for DVT prophylaxis. She normally takes Celebrex I am going to give her low-dose Celebrex daily which will protect her from heterotopic bone formation as well as provide nonnarcotic analgesic relief of her pain in addition to the Tylenol. We have oxycodone or for her needed as well. A scheduled low dose of oxycodone is ordered. This patient will require [facility] rehab at discharge as she will not be safe to be by herself until her hip has healed well which I would anticipate will be 6-8 weeks. Her sodium is low at 128. Her creatinine is 1.0 estimated creatinine clearance is 40 which is not significantly changed. Subjective Subjective Date/Time Seen: 07/17/21 07:29 Objective Data Vital Signs Vital Signs: Vital Signs - 24 hr 07/16/21 09:38 07/16/21 09:40 07/16/21 12:00 Temperature Pulse Rate 67 57 L Respiratory Rate Blood Pressure Pulse Oximetry 100 07/16/21 14:00 07/16/21 15:42 07/16/21 16:00 Temperature 35.9 C L Pulse Rate 60 53 L Respiratory Rate 16 Blood Pressure 153/50 H Pulse Oximetry 100 96 07/16/21 17:35 07/16/21 21:01 07/16/21 21:16 Temperature 36.2 C L 36.3 C L 36.6 C Pulse Rate 58 L 74 70 Respiratory Rate 12 19 17 Blood Pressure 166/55 H 147/78 H 151/54 H Pulse Oximetry 97 100 100 07/16/21 21:30 07/16/21 21:45 07/16/21 22:05 Temperature 36.7 C 36.7 C Pulse Rate 73 67 77 Respiratory Rate 14 13 14 Blood Pressure 144/49 H 148/54 H 147/64 H Pulse Oximetry 100 100 100 07/16/21 22:30 07/16/21 22:45 07/16/21 23:15 Temperature 36.2 C L 36.6 C 36.6 C Pulse Rate 54 L 65 67 Respiratory Rate 16 16 16 Blood Pressure 150/50 H 154/56 H 125/58 L Pulse Oximetry 100 100 100 07/17/21 00:00 07/17/21 00:15 07/17/21 04:00 Temperature 36.6 C Pulse Rate 61 68 49 L Respiratory Rate 17 Blood Pressure 138/58 L Pulse Oximetry 100 07/17/21 04:33 Temperature 36.1 C L Pulse Rate 54 L Respiratory Rate 16 Blood Pressure 122/44 L Pulse Oximetry 100 Intake/Output Intake/Output: Intake & Output 07/14/21 07/15/21 07/16/21 07/17/21 23:59 23:59 23:59 23:59 Intake Total 565 480 Output Total 790 250 Balance -225 230 Meds/Results Medications: Active Medications Generic Name Dose Route Start Last Admin Trade Name Freq PRN Reason Stop Dose Admin Acetaminophen 650 mg 07/17/21 12:00 Acetaminophen 325 Mg Tablet PO Q6H ALCIRA Albuterol 5 mg 07/16/21 02:30 Albuterol Sulfate Neb 2.5 Mg/0.5 Ml Inh INHALATION Q6HRT PRN Shortness Of Breath Amlodipine Besylate 2.5 mg 07/16/21 09:00 07/16/21 09:37 Amlodipine Besylate 2.5 Mg Tablet PO 2.5 mg D
[2021-07-17] MEDS: NEBIVOLOL HCL 5 MG TABLET 10 MG PO (08:04)
[2021-07-17] MEDS: FERROUS SULFATE 324 MG TABLET PO (08:04)
[2021-07-17] MEDS: FAMOTIDINE 20 MG TABLET 40 MG PO (08:04)
[2021-07-17] MEDS: DULoxetine HCL 60 MG CAPSULE.DR PO (08:04)
[2021-07-17] MEDS: amLODIPine BESYLATE 2.5 MG TABLET PO (08:04)
[2021-07-17] MEDS: MEMANTINE 10 MG TABLET PO ×2 (08:04→16:38)
[2021-07-17] MEDS: hydroCHLOROthiazide 12.5 MG CAPSULE PO (08:04)
[2021-07-17] MEDS: MIRABEGRON 50 MG ER TABLET PO (08:04)
[2021-07-17] MEDS: LORATADINE 10 MG TABLET PO (08:04)
[2021-07-17] MEDS: POTASSIUM CHLORIDE 20 MEQ TABLET PO (08:05)
[2021-07-17] MEDS: ASPIRIN 81 MG ENTERIC TABLET PO (08:05)
[2021-07-17] MEDS: CELECOXIB 100 MG CAPSULE PO (08:05)
[2021-07-17] MEDS: polyethylene glycoL 3350 17 GM POWD.PACK PO (08:05)
[2021-07-17] MEDS: DONEPEZIL HCL 10 MG TABLET PO (08:05)
[2021-07-17] MEDS: ENOXAPARIN 40 MG/0.4 ML SYRINGE SUB-Q (08:05)
[2021-07-17] MEDS: SENNA/DOCUSATE SODIUM TABLET 2 TAB PO ×2 (08:05→16:38)
[2021-07-17] MEDS: EZETIMIBE 10 MG TABLET PO (08:05)
[2021-07-17] MEDS: ATORVASTATIN 40 MG TABLET PO (08:05)
--- NOTE | 2021-07-17 08:43 | PM.PNCARD ---
Progress Note: A&P Assessment and Plan (1) Preop cardiovascular exam: Code(s): Z01.810 - Encounter for preprocedural cardiovascular examination <KENA Peterson - Last Filed: 07/17/21 09:10> Status: Acute <Dian CarvajalNate KENA Castrejon - Last Filed: 07/17/21 09:10> Assessment and Plan: She is at [id number] risk of having perioperative cardiovascular complications. She has chronic chest pain. I discussed this with her daughter and her daughter states she has been having complaints of chest pain for approximately 10 years. She has had stress testing in the past and in reviewing her primary machine trimmer's records, the chest pain does not seem to be new and her stress test previously was normal and she had a preserved ejection fraction. I do not think that further ischemic workup is needed prior to surgery. We will simply continue her cardiac regimen including beta-deann aspirin and her other regimen perioperatively. <KENA Peterson - Last Filed: 07/17/21 09:10> (2) Closed fracture of neck of left femur: Qualifiers: Encounter type: initial encounter Qualified Code(s): S72.002A - Fracture of unspecified part of neck of left femur, initial encounter for closed fracture <KENA Peterson - Last Filed: 07/17/21 09:10> Code(s): S72.002A - Fracture of unspecified part of neck of left femur, initial encounter for closed fracture <KENA Peterson - Last Filed: 07/17/21 09:10> Status: Acute <KENA Peterson - Last Filed: 07/17/21 09:10> Assessment and Plan: Followed by Orthopedic surgery <KENA Peterson - Last Filed: 07/17/21 09:10> (3) Essential hypertension: Code(s): I10 - Essential (primary) hypertension <KENA Peterson - Last Filed: 07/17/21 09:10> Status: Acute <KENA Peterson - Last Filed: 07/17/21 09:10> Assessment and Plan: Above goal <KATIE PetersonBelinda - Last Filed: 07/17/21 09:10> (4) Chest pain: Code(s): R07.9 - Chest pain, unspecified <KATIE PetersonBelinda - Last Filed: 07/17/21 09:10> Status: Acute <Dian Castrejon APNLupe - Last Filed: 07/17/21 09:10> Assessment and Plan: This is a chronic problem and does is not new. <KATIE PetersonBelinda - Last Filed: 07/17/21 09:10> (5) Chronic respiratory failure: Code(s): J96.10 - Chronic respiratory failure, unspecified whether with hypoxia or hypercapnia <KENA Peterson - Last Filed: 07/17/21 09:10> Status: Acute <KENA Peterson - Last Filed: 07/17/21 09:10> Assessment and Plan: On chronic oxygen and followed by pulmonology <KATIE PetersonBelinda - Last Filed: 07/17/21 09:10> (6) Left bundle branch block: Code(s): I44.7 - Left bundle-branch block, unspecified <KENA Peterson - Last Filed: 07/17/21 09:10> Status: Acute <KENA Peterson - Last Filed: 07/17/21 09:10> Assessment and Plan: This is also a chronic and not new bundle branch block. Will order a 2D echocardiogram Doppler to establish an ejection fraction. <KENA Peterson - Last Filed: 07/17/21 09:10> Additional Plan We were asked to see this patient in consultation for pre-operative cardiac clearance. She does have some chronic chest pain that has been ongoing for 10 years but no documented CAD. She also has a chronic left bundle branch block. She was deemed to be mild-moderate risk for surgery from a cardiac perspective. She is now s/p hemiarthroplasty of her left hip. Doing well -only reporting a pain level of 2 in the left hip. She does describe some chest heaviness which again is a chronic complaint. I discussed the results of her echocardiogram with her- normal systolic function, EF 65-70%. Grade 2 diastolic dysfunction. No significant valve pathology. she says that she does have a machine trimmer who s
[2021-07-17] MEDS: ACETAMINOPHEN 325 MG TABLET 650 MG PO ×3 (12:41→23:59)
[2021-07-17] MEDS: traZODone HCL 50 MG TABLET 150 MG PO (22:02)
[2021-07-18] VITALS (14 sets, daily range): BP systolic 133–147; BP diastolic 39–72; PULSE 54–74; RESP 16–20; TEMP 36–36.9; O2SAT 99–100; BMI 11.0
[2021-07-18] MEDS: oxyCODONE HCL (*CRX) 2.5 MG TAB IR PO ×3 (04:26→15:50)
[2021-07-18 06:02] LABS: Hematocrit 23.5 % (37.0-47.0); Hemoglobin 7.3 g/dL (12.0-15.0); Immature Platelet Fraction Pct 10.9 % (0.9-11.2); Mean Corpuscular HGB Conc 31.1 g/dl (32-36); Mean Corpuscular Hemoglobin 29.9 pg (26-34); Mean Corpuscular Volume 96.3 fl (80-100); Mean Platelet Volume 12.1 fl (7.4-10.4); Platelet Count Result 94 k/mm3 (150-375); Red Blood Count 2.44 M/mm3 (4.2-5.4); Red Cell Distribution Width 12.3 % (11.5-14.5); White Blood Count 6.6 K/mm3 (4.5-10.0)
[2021-07-18 06:07] LABS: Anion Gap 6 mmol/L (8-16); Blood Urea Nitrogen 26 mg/dL (7-17); Calcium 8.4 mg/dL (8.4-10.2); Carbon Dioxide 29 mmol/L (22-30); Chloride 95 mmol/L (98-107); Estimated CRCL calculation 34 ml/min; Estimated Glomerular Filt Rate 43; Glucose 144 mg/dL (65-110); Potassium 3.5 mmol/L (3.4-5.0); Sodium 130 mmol/L (137-145)
[2021-07-18] MEDS: ACETAMINOPHEN 325 MG TABLET 650 MG PO ×3 (06:13→18:08)
[2021-07-18] MEDS: LEVOTHYROXINE SODIUM 100 MCG TABLET PO (06:13)
--- NOTE | 2021-07-18 07:28 | PM.PNORT ---
Progress Note: A&P Additional Plan patient is postoperative day 2. After bipolar hemiarthroplasty left hip for displaced femoral neck fracture. She feels tired this morning she is sitting up in the chair she is alert and seems to be in good spirits. She still states she had no pain over night and slept well. She has mild pain this morning with transfer to the chair. She has problems chronically with urinary urgency and incontinence and she has been urinating in the adult diaper and they have been checking weights. Her urine output this morning has been 500 so it is very adequate. Her hemoglobin is decreased to 7.3. Platelets are decreased to 94,000. these were both low preoperatively and chronically. I am going to order 1 unit of packed red blood cells for her this morning on a stat basis. Her creatinine is up a little bit this morning at 1.2. In looking back at previous labs, her creatinine was in the 1.2 to 1.4 range in 2019. On admission however 3 days ago her creatinine was 0.9. She was on Celebrex at home chronically and I resumed her Celebrex at the very small dose at 100 mg daily but I think we need to put that on hold. Her platelets are 94,000 and she is on aspirin. Her wound is dry she does have mild swelling in the hip and proximal thigh region and I think it is most likely that her acute postoperative anemia is due to ongoing losing from the proximal femur and soft tissues at her hip replacement wound site. I am going to put her Lovenox on hold today until we see what her platelets 2 tomorrow. We will ask that the SCDs be worn consistently and for today we will have her on a baby aspirin every 12 hours to provide some DVT prophylaxis. I am going to consult the rn sane for additional recommendations regarding her chronic anemia and thrombocytopenia. The worsening of these 2 values is likely postoperative and not likely to be heparin induced thrombocytopenia. Her platelets were abnormally low preoperatively. We will check a CBC and BMP again in the morning. Her blood pressure has been stable as with her vital signs. She is on oxygen this morning and her oxygen saturations have been very good. Subjective Subjective Date/Time Seen: 07/18/21 07:28 Objective Data Vital Signs Vital Signs: Vital Signs - 24 hr 07/17/21 08:00 07/17/21 08:04 07/17/21 10:00 Temperature 36.3 C L Pulse Rate 80 57 L Respiratory Rate 16 Blood Pressure 135/46 L Pulse Oximetry 100 100 07/17/21 10:45 07/17/21 12:00 07/17/21 13:10 Temperature 36.4 C L Pulse Rate 63 61 Respiratory Rate 18 Blood Pressure 139/46 L Pulse Oximetry 99 100 07/17/21 14:00 07/17/21 16:00 07/17/21 18:00 Temperature 36.3 C L 37.2 C Pulse Rate 71 66 92 Respiratory Rate 20 16 Blood Pressure 133/47 L 127/48 L Pulse Oximetry 100 94 07/17/21 20:00 07/17/21 20:03 07/17/21 21:00 Temperature 36.2 C L Pulse Rate 73 67 Respiratory Rate 17 Blood Pressure 138/68 Pulse Oximetry 100 100 07/17/21 23:57 07/18/21 00:00 07/18/21 04:00 Temperature 36.6 C Pulse Rate 68 66 54 L Respiratory Rate 16 Blood Pressure 123/40 L Pulse Oximetry 100 Intake/Output Intake/Output: Intake & Output 07/15/21 07/16/21 07/17/21 07/18/21 23:59 23:59 23:59 23:59 Intake Total 565 2100 300 Output Total 790 850 500 Balance -225 1250 -200 Meds/Results Medications: Active Medications Generic Name Dose Route Start Last Admin Trade Name Freq PRN Reason Stop Dose Admin Acetaminophen 650 mg 07/17/21 12:00 07/18/21 06:13 Acetaminophen 325 Mg Tablet PO 650 mg Q6H ALCIRA Administration Albuterol 5 mg 07/16/21 02:30 Albuterol Sulfate Neb 2.5 Mg/0.5 Ml Inh INHALATION Q6HRT PRN Shortness Of Breath Amlodipine Besylate 2.5 mg 07/16/21 09:00 07/17/21 08:04 Amlodipine Besylate 2.5 Mg Tablet PO 2.5 mg DAILY ALCIRA Administration Aspirin 81 mg 07/18/21 09:00 Aspirin 81 Mg Enteric Tablet PO BID S
--- NOTE | 2021-07-18 08:03 | PC.NURSE ---
Hospitalist Jm Patel instructed me to verify the iron study labs are completed before any blood transfusions are administered. Instructions repeated and verified, will monitor labs for compliance.
--- NOTE | 2021-07-18 08:22 | P.PNIM_ITS ---
Progress Note: A&P Assessment and Plan (1) Closed fracture of neck of left femur: Qualifiers: Encounter type: initial encounter Qualified Code(s): S72.002A - Fracture of unspecified part of neck of left femur, initial encounter for closed fracture Code(s): S72.002A - Fracture of unspecified part of neck of left femur, initial encounter for closed fracture Status: Acute Assessment and Plan: * Fall, Hip and pelvis xray shows Left subcapital femoral neck fracture * Post op day 2 * ortho consulted thank you for your help, surgical intervention on 07/16/21 * Ortho to manage post care. * Pain: Tylenol IV Q6hr terence, Morphine 2mg IV Q1Hr PRN, Roxicodone 5mg Q4hr PRN and 2.5mg PO Q4hr TERENCE * Bowel: Senokot and Mirlax * Anti-emetic: Zofran 4mg Q4HR PRN * Antibiotics: Ancef 1gm Q8hr terence x 3 bags, Vanc 1000mg IV Q12HR x 2 bags * DVT Prophylaxis: Lovenox 40mg daily (2) Anemia: Code(s): D64.9 - Anemia, unspecified Status: Acute Assessment and Plan: * H/H are down since surgery * H/H upon admission 10.4/33.6 today 7.3/23.5 * anemia studies normal in November, repeat this am * one unit of blood 07/18/21 * continue to trend * Labs in the am (3) Syncope and collapse: Code(s): R55 - Syncope and collapse Status: Acute Assessment and Plan: * Cardiology consulted * Frequent falls * Orthostatic blood pressure when safe from ortho * neuro consulted * Echo- 65-70% with grade 2 diastolic dysfunction * Carotid doppler- Normal right and Left carotid artery * Patient had another episode of bradycardia with syncope today * Could be related to anemia with rapid decline of H/H. * Bystolic placed on hold at this time. (4) Essential hypertension: Code(s): I10 - Essential (primary) hypertension Status: Acute Assessment and Plan: * Current blood pressure * Continue quinapril 40mg PO daily, hydrochlorothiazide 12.5mg PO daily, amlodipine 2.5mg PO daily * bystolic 10mg PO daily on hold for bradycardic episode. * trend blood pressure * Adjust medications as needed. (5) Dementia: Code(s): F03.90 - Unspecified dementia without behavioral disturbance Status: Acute Assessment and Plan: * Continue Aricept 10mg PO daily and Namenda 10mg PO BID * Trazodone 150mg PO at night (6) COPD (chronic obstructive pulmonary disease): Qualifiers: COPD type: unspecified COPD Qualified Code(s): J44.9 - Chronic obstructive pulmonary disease, unspecified Code(s): J44.9 - Chronic obstructive pulmonary disease, unspecified Status: Acute Assessment and Plan: * No evidence of acute COPD exacerbation. * Atrovent and albuterol neb Q6hr PRN for shortness of breath. * Home o2 at 3LNC * IS post surgery (7) Major depression, recurrent, chronic: Code(s): F33.9 - Major depressive disorder, recurrent, unspecified Status: Acute Assessment and Plan: * Continue Duloxetine 60mg PO daily and trazodone 150mg PO at night * Adjust medications as needed (8) Mixed hyperlipidemia: Code(s): E78.2 - Mixed hyperlipidemia Status: Acute Assessment and Plan: * Atorvastatin 40mg PO daily on hold for now * Continue when able Time Spent With Patient Time with patient: Greater than 35 minutes Subjective Date/time seen: 07/18/21 08:00
--- NOTE | 2021-07-18 08:22 | PM.IMPN ---
Progress Note: A&P Assessment and Plan (1) Closed fracture of neck of left femur: Qualifiers: Encounter type: initial encounter Qualified Code(s): S72.002A - Fracture of unspecified part of neck of left femur, initial encounter for closed fracture Code(s): S72.002A - Fracture of unspecified part of neck of left femur, initial encounter for closed fracture Status: Acute Assessment and Plan: Fall, Hip and pelvis xray shows Left subcapital femoral neck fracture Post op day 2 ortho consulted thank you for your help, surgical intervention on 07/16/21 Ortho to manage post care. Pain: Tylenol IV Q6hr terence, Morphine 2mg IV Q1Hr PRN, Roxicodone 5mg Q4hr PRN and 2.5mg PO Q4hr TERENCE Bowel: Senokot and Mirlax Anti-emetic: Zofran 4mg Q4HR PRN Antibiotics: Ancef 1gm Q8hr terence x 3 bags, Vanc 1000mg IV Q12HR x 2 bags DVT Prophylaxis: Lovenox 40mg daily (2) Anemia: Code(s): D64.9 - Anemia, unspecified Status: Acute Assessment and Plan: H/H are down since surgery H/H upon admission 10.4/33.6 today 7.3/23.5 anemia studies normal in November, repeat this am one unit of blood 07/18/21 continue to trend Labs in the am (3) Syncope and collapse: Code(s): R55 - Syncope and collapse Status: Acute Assessment and Plan: Cardiology consulted Frequent falls Orthostatic blood pressure when safe from ortho neuro consulted Echo- 65-70% with grade 2 diastolic dysfunction Carotid doppler- Normal right and Left carotid artery Patient had another episode of bradycardia with syncope today Could be related to anemia with rapid decline of H/H. Bystolic placed on hold at this time. (4) Essential hypertension: Code(s): I10 - Essential (primary) hypertension Status: Acute Assessment and Plan: Current blood pressure Continue quinapril 40mg PO daily, hydrochlorothiazide 12.5mg PO daily, amlodipine 2.5mg PO daily bystolic 10mg PO daily on hold for bradycardic episode. trend blood pressure Adjust medications as needed. (5) Dementia: Code(s): F03.90 - Unspecified dementia without behavioral disturbance Status: Acute Assessment and Plan: Continue Aricept 10mg PO daily and Namenda 10mg PO BID Trazodone 150mg PO at night (6) COPD (chronic obstructive pulmonary disease): Qualifiers: COPD type: unspecified COPD Qualified Code(s): J44.9 - Chronic obstructive pulmonary disease, unspecified Code(s): J44.9 - Chronic obstructive pulmonary disease, unspecified Status: Acute Assessment and Plan: No evidence of acute COPD exacerbation. Atrovent and albuterol neb Q6hr PRN for shortness of breath. Home o2 at 3LNC IS post surgery (7) Major depression, recurrent, chronic: Code(s): F33.9 - Major depressive disorder, recurrent, unspecified Status: Acute Assessment and Plan: Continue Duloxetine 60mg PO daily and trazodone 150mg PO at night Adjust medications as needed (8) Mixed hyperlipidemia: Code(s): E78.2 - Mixed hyperlipidemia Status: Acute Assessment and Plan: Atorvastatin 40mg PO daily on hold for now Continue when able Time Spent With Patient Time with patient: Greater than 35 minutes Subjective Date/time seen: 07/18/21 08:00 Interval history: Patient is an 85-year-old female who presented after a fall and had hip repair on 07/16/21. Today is post-op day two. She is up in the chair working with OT today. She said that she is ok, just tired. However, she is very pale, and almost lethargic. She denies chest pain, shortness of breath, but does say that she is weak and is experiencing fatigue. Her H/H has declined further today to 7.3/23.5. Her iron studies from earlier in the year were normal. She probably is anemic from her surgical intervention. Iron studies are being repeated
[2021-07-18] MEDS: SODIUM CHLORIDE 0.9% IV 250 ML 30 ML IV CONT (08:40)
[2021-07-18] MEDS: NEBIVOLOL HCL 5 MG TABLET 10 MG PO (08:41)
[2021-07-18] MEDS: MIRABEGRON 50 MG ER TABLET PO (08:41)
[2021-07-18] MEDS: FERROUS SULFATE 324 MG TABLET PO ×2 (08:41→18:09)
[2021-07-18] MEDS: MEMANTINE 10 MG TABLET PO ×2 (08:41→18:08)
[2021-07-18] MEDS: ASPIRIN 81 MG ENTERIC TABLET PO ×2 (08:45→18:08)
[2021-07-18] MEDS: SENNA/DOCUSATE SODIUM TABLET 2 TAB PO ×2 (08:45→18:08)
[2021-07-18] MEDS: ATORVASTATIN 40 MG TABLET PO (08:45)
[2021-07-18] MEDS: amLODIPine BESYLATE 2.5 MG TABLET PO (08:45)
[2021-07-18] MEDS: POTASSIUM CHLORIDE 20 MEQ TABLET PO (08:45)
[2021-07-18] MEDS: DULoxetine HCL 60 MG CAPSULE.DR PO (08:45)
[2021-07-18] MEDS: polyethylene glycoL 3350 17 GM POWD.PACK PO (08:45)
[2021-07-18] MEDS: hydroCHLOROthiazide 12.5 MG CAPSULE PO (08:45)
[2021-07-18] MEDS: FAMOTIDINE 20 MG TABLET 40 MG PO (08:46)
[2021-07-18] MEDS: EZETIMIBE 10 MG TABLET PO (08:46)
[2021-07-18] MEDS: DONEPEZIL HCL 10 MG TABLET PO (08:46)
[2021-07-18] MEDS: LORATADINE 10 MG TABLET PO (08:46)
[2021-07-18 09:14] LABS: Lactate Dehydrogenase 510 U/L (313-618)
[2021-07-18 09:21] LABS: Transferrin 135 mg/dL (206-381)
--- NOTE | 2021-07-18 09:33 | ECG_ITS ---
Measurements Intervals [place] Rate: 55 P: 57 UT: 201 QRS: -19 QRSD: 173 T: 108 QT: 482 QTc: 461 Interpretive Statements SINUS BRADYCARDIA BORDERLINE AV CONDUCTION DELAY LEFT BUNDLE BRANCH BLOCK ABNORMAL ECG Electronically Signed On 07-18-2021 10:01:15 CDT by Alessandro Tracy D.O.
[2021-07-18] MEDS: ONDANSETRON INJ 4 MG/2 ML VIAL IV PUSH (09:50)
[2021-07-18 10:02] LABS: Alveolar/Arterial O2 Gradient 26.1 mmHg; Base Excess ABG 3.9 mEq/l (+/-2.0); Fractional Inspired Oxygen 32 %; HCO3 ABG 28.8 mEq/l (22.0-26.0); Oxygen Content ABG 12.1 %vol (16.0-22.0); Oxygen Saturation ABG 98.9 % (95.0-100.0); Oxyhemoglobin 97.4 % THb (90.0-100.0); PCO2 ABG 45.1 mmHg (35.0-45.0); PO2 ABG 149.3 mmHg (80.0-100.0); PO2 FiO2 Ratio Arterial Blood 4.67 %; Total Hemoglobin 8.6 g/dL (12.0-18.0); pH ABG 7.423 (7.350-7.450)
[2021-07-18 10:03] LABS: Device NASAL CANNULA; Modified Allen's Test Pass; Site Drawn LEFT RADIAL
--- NOTE | 2021-07-18 10:12 | PCPTNOTE ---
When ambulating patient for PT, patient went unresponsive after patient sat back down in chair. Called nursing in and assisted nursing to get patient back in bed, patient came-to, assisted nursing with repositioning patient in bed. RN and MD present.
[2021-07-18] MEDS: SODIUM CHLORIDE 0.9% IV 250 ML 30 ML (10:15)
[2021-07-18 10:23] LABS: Folic Acid 12.9 ng/mL (2.76->20)
--- NOTE | 2021-07-18 11:06 | PCNFU ---
Nutrition Follow-Up Complete: Inadequate oral intake related to decreased appetite and altered taste as evidenced by statements by patient and daughter in law, including reported 15-20 pound weight loss without trying. Goal: Patient to meet estimated nutritional needs. Progressing towards goal. We will continue current goal. Pt current nutrition is Regular. Last recorded weight is 74.6 kg, no new weight to report. Bowel Motility:+BM reported 07/18 Labs Reviewed:NA 130,BUN 26,Cr 1.2,Glu 144,Hct 23.5,Hgb 7.3 Meds Noted:Norvasc,Aricept,Pepcid,Senokot,NS Additional Notes: Patient became unresponsive this morning. Getting unit of blood. Oral Intake has been 50-60% of a regular diet. She does not like the Ensure compact, will change to Frozen Nutritional Treat providing an additional 300 kcals and 9 gms protein. Monitoring: Follow up every 3 days.
[2021-07-18 11:35] LABS: Iron 13 ug/dL (37-170)
[2021-07-18 11:48] LABS: Percent Iron Saturation 7 % (20-50)
--- NOTE | 2021-07-18 13:06 | PDONCCN ---
HPI - Date of Consult Date/Time: 07/18/21 13:06 Requesting Physician: Juli Oakley DO Primary Care Provider: Talon Mcgovern MD - Consult Narrative Reason for consult: Normocytic anemia Narrative: Qian Cheek is a 85 year old female with history of COPD on chronic home oxygen, hypertension and hyperlipidemia along with history of frequent fall presented to the ER from [facility] [place] after fall with left hip pain. She was diagnosed with fracture of the neck of the left femur. Patient had bipolar hemiarthroplasty of the left hip done on July 15, 2021. Her hemoglobin on July 16 was a 10.4 now dropped down to 7.3. She denies any bleeding including melena hematochezia. She has been eating poorly for the last 6 months duration and have lost almost 20 lb weight loss in that time. Denies any fever chills and any other complaints. Review of Systems - Review of Systems All systems reviewed & are unremarkable except as noted in HPI and bel - Neurologic Reports hearing normal, Reports confusion (upon reevaluation ), Reports weakness, Denies abnormal speech, Denies abnormal gait, Denies headache(s), Denies focal weakness, Denies loss of vision, Denies numbness, Denies other visual disturbances, Denies sensory deficit ON LICENSE OF [facility] Medical History: Medical History (Last Reviewed 07/16/21 @ 16:22 by Brandon Jarquin MD) Anemia Iron studies November 2020 more within normal limits Ataxia Atherosclerotic heart disease of [place] coronary artery with other forms of angina pectoris patient denies any known history of coronary artery disease but was previously seeing Dr. Aashish Bee. 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 They at age 80. Father Prostate carcinoma Mother Victim of tornado - Social History Social History: Social History (Last Reviewed 07/16/21 @ 16:22 by Brandon Jarquin MD) Gender Identity: Gender identity (if verbalized by the patient): Female Alcohol Use: Alcohol intake: never Substance Use: Substance use: never Others: Spiritual care concerns: No Smoking Status: Smoking status: Never smoker Meds Home Medications Medication Instructions Recorded Confirmed Type famotidine 40 mg tablet 40 mg PO DAILY #90 tablet 05/03/20 07/16/21 Rx aspirin 81 mg tablet,delayed 81 mg PO DAILY 11/26/20 07/16/21 History release donepezil 10 mg tablet 10 mg PO DAILY 11/26/20 07/16/21 History duloxetine 60 mg capsule,delayed 60 mg PO DAILY 11/26/20 07/16/21 History release ezetimibe 10 mg tablet 10 mg PO DAILY 11/26/20 07/16/21 History glucosamine HCl 1,500 mg tablet 1,500 mg PO DAILY 11/26/20 07/16/21 History hydrochlorothiazide 12.5 mg tablet 12.5 mg PO DAILY 11/26/20 07/16/21 History celecoxib 200 mg capsule 200 mg PO DAILY #90 cap 04/22/21 07/16/21 Rx amlodipine 2.5 mg tablet 2.5 mg PO DAILY 05/29/21 07/16/21 History ferrous sulfate 325 mg (65 mg 325 mg PO DAILY 05/29/21 07/16/21 History iron) tablet,delayed release memantine 10 mg tablet 10 mg P
--- NOTE | 2021-07-18 13:11 | PCPTNOTE ---
Patient unable to be seen for PT this afternoon due to patient receiving blood transfusion.
[2021-07-18 14:45] LABS: Free T4 Free Thyroxine Reflex 1.81 ng/dL (0.78-2.19)
[2021-07-18 15:50] LABS: Total Triiodothyronine (T3) 0.86 NG/ML (0.97-1.69)
[2021-07-18 16:30] LABS: Hematocrit 27.6 % (37.0-47.0); Hemoglobin 8.7 g/dL (12.0-15.0); Mean Corpuscular HGB Conc 31.5 g/dl (32-36); Mean Corpuscular Hemoglobin 29.5 pg (26-34); Mean Corpuscular Volume 93.6 fl (80-100); Mean Platelet Volume 12.1 fl (7.4-10.4); Platelet Count Result 100 k/mm3 (150-375); Red Blood Count 2.95 M/mm3 (4.2-5.4); Red Cell Distribution Width 12.8 % (11.5-14.5); White Blood Count 8.8 K/mm3 (4.5-10.0)
[2021-07-18] MEDS: oxyCODONE HCL (*CRX) 5 MG TAB IR PO (20:12)
[2021-07-18] MEDS: traZODone HCL 50 MG TABLET 150 MG PO (20:13)
[2021-07-19] VITALS (14 sets, daily range): BP systolic 130–167; BP diastolic 39–58; PULSE 55–81; RESP 14–20; TEMP 36.1–36.9; O2SAT 98–100
[2021-07-19] MEDS: ACETAMINOPHEN 325 MG TABLET 650 MG PO ×3 (05:07→17:18)
[2021-07-19] MEDS: oxyCODONE HCL (*CRX) 2.5 MG TAB IR PO ×3 (05:07→20:35)
[2021-07-19] MEDS: LEVOTHYROXINE SODIUM 100 MCG TABLET PO (05:08)
[2021-07-19 06:03] LABS: Hematocrit 27.7 % (37.0-47.0); Hemoglobin 8.5 g/dL (12.0-15.0); Mean Corpuscular HGB Conc 30.7 g/dl (32-36); Mean Corpuscular Volume 94.5 fl (80-100); Mean Platelet Volume 12.4 fl (7.4-10.4); Platelet Count Result 98 k/mm3 (150-375); Red Blood Count 2.93 M/mm3 (4.2-5.4); Red Cell Distribution Width 13.1 % (11.5-14.5); White Blood Count 7.4 K/mm3 (4.5-10.0)
[2021-07-19 06:08] LABS: Alanine Aminotransferase 20 U/L (4-35); Albumin Level 3.3 g/dL (3.5-5.1); Alkaline Phosphatase 67 U/L (38-126); Anion Gap 5 mmol/L (8-16); Aspartate Amino Transferase 43 U/L (14-36); Bilirubin,Total 0.3 mg/dL (0.2-1.3); Blood Urea Nitrogen 26 mg/dL (7-17); Calcium 8.9 mg/dL (8.4-10.2); Carbon Dioxide 30 mmol/L (22-30); Chloride 101 mmol/L (98-107); Estimated CRCL calculation 36 ml/min; Estimated Glomerular Filt Rate 47; Glucose 137 mg/dL (65-110); Sodium 136 mmol/L (137-145)
[2021-07-19] MEDS: hydroCHLOROthiazide 12.5 MG CAPSULE PO (08:14)
[2021-07-19] MEDS: ASPIRIN 81 MG ENTERIC TABLET PO (08:14)
[2021-07-19] MEDS: DULoxetine HCL 60 MG CAPSULE.DR PO (08:14)
[2021-07-19] MEDS: MEMANTINE 10 MG TABLET PO ×2 (08:14→17:16)
[2021-07-19] MEDS: POTASSIUM CHLORIDE 20 MEQ TABLET PO (08:14)
[2021-07-19] MEDS: polyethylene glycoL 3350 17 GM POWD.PACK PO (08:14)
[2021-07-19] MEDS: DONEPEZIL HCL 10 MG TABLET PO (08:14)
[2021-07-19] MEDS: SENNA/DOCUSATE SODIUM TABLET 2 TAB PO ×2 (08:15→17:15)
[2021-07-19] MEDS: EZETIMIBE 10 MG TABLET PO (08:15)
[2021-07-19] MEDS: ATORVASTATIN 40 MG TABLET PO (08:15)
[2021-07-19] MEDS: FAMOTIDINE 20 MG TABLET 40 MG PO (08:15)
[2021-07-19] MEDS: amLODIPine BESYLATE 2.5 MG TABLET PO ×2 (08:15→11:44)
[2021-07-19] MEDS: MIRABEGRON 50 MG ER TABLET PO (08:15)
[2021-07-19] MEDS: FERROUS SULFATE 324 MG TABLET PO ×2 (08:16→17:15)
[2021-07-19] MEDS: LORATADINE 10 MG TABLET PO (08:16)
--- NOTE | 2021-07-19 09:22 | P.PNIM_ITS ---
Progress Note: A&P Assessment and Plan (1) Closed fracture of neck of left femur: Qualifiers: Encounter type: initial encounter Qualified Code(s): S72.002A - Fracture of unspecified part of neck of left femur, initial encounter for closed fracture Code(s): S72.002A - Fracture of unspecified part of neck of left femur, initial encounter for closed fracture Status: Acute Assessment and Plan: * Fall, Hip and pelvis xray shows Left subcapital femoral neck fracture * Post op day 3 * ortho consulted thank you for your help, surgical intervention on 07/16/21 * Ortho to manage post care. * Pain: Tylenol IV Q6hr terence, Morphine 2mg IV Q1Hr PRN, Roxicodone 5mg Q4hr PRN and 2.5mg PO Q4hr TERENCE * Bowel: Senokot and Mirlax * Anti-emetic: Zofran 4mg Q4HR PRN * Antibiotics: Ancef 1gm Q8hr terence x 3 bags, Vanc 1000mg IV Q12HR x 2 bags * DVT Prophylaxis: Lovenox 40mg daily (2) Anemia: Code(s): D64.9 - Anemia, unspecified Status: Acute Assessment and Plan: * H/H are down since surgery * H/H upon admission 10.4/33.6 today 8.5/27.7 * anemia studies normal in November, repeat this am * one unit of blood 07/18/21 * continue to trend * Labs in the am * Dr. Farrell consulted * Continue iron supplement * Will need a bone marrow biopsy * will need to follow up in the office (3) Syncope and collapse: Code(s): R55 - Syncope and collapse Status: Acute Assessment and Plan: * Cardiology consulted * Frequent falls * Orthostatic blood pressure when safe from ortho * neuro consulted * Echo- 65-70% with grade 2 diastolic dysfunction * Carotid doppler- Normal right and Left carotid artery * Patient had another episode of bradycardia with syncope 07/18/21 * Could be related to anemia with rapid decline of H/H. * Bystolic placed on hold 07/19/21 * Blurred vision and dizziness upon exam * Head CT ordered * Meclizine 25mg PO added (4) Essential hypertension: Code(s): I10 - Essential (primary) hypertension Status: Acute Assessment and Plan: * Current blood pressure 138/50 * Continue quinapril 40mg PO daily, hydrochlorothiazide 12.5mg PO daily, amlodipine 2.5mg PO daily * bystolic 10mg PO daily on hold for bradycardic episode on 07/18/21 * trend blood pressure * Adjust medications as needed. (5) Dementia: Code(s): F03.90 - Unspecified dementia without behavioral disturbance Status: Acute Assessment and Plan: * Continue Aricept 10mg PO daily and Namenda 10mg PO BID * Trazodone 150mg PO at night (6) COPD (chronic obstructive pulmonary disease): Qualifiers: COPD type: unspecified COPD Qualified Code(s): J44.9 - Chronic obstructive pulmonary disease, unspecified Code(s): J44.9 - Chronic obstructive pulmonary disease, unspecified Status: Acute Assessment and Plan: * No evidence of acute COPD exacerbation. * Atrovent and albuterol neb Q6hr PRN for shortness of breath. * Home o2 at 3LNC * IS post surgery (7) Major depression, recurrent, chronic: Code(s): F33.9 - Major depressive disorder, recurrent, unspecified Status: Acute Assessment and Plan: * Continue Duloxetine 60mg PO daily and trazodone 150mg PO at night * Adjust medications as needed (8) Mixed hyperlipidemia: Code(s): E78.2 - Mixed hyperlipidemia Status: Acute
--- NOTE | 2021-07-19 09:22 | PM.IMPN ---
Progress Note: A&P Assessment and Plan (1) Closed fracture of neck of left femur: Qualifiers: Encounter type: initial encounter Qualified Code(s): S72.002A - Fracture of unspecified part of neck of left femur, initial encounter for closed fracture Code(s): S72.002A - Fracture of unspecified part of neck of left femur, initial encounter for closed fracture Status: Acute Assessment and Plan: Fall, Hip and pelvis xray shows Left subcapital femoral neck fracture Post op day 3 ortho consulted thank you for your help, surgical intervention on 07/16/21 Ortho to manage post care. Pain: Tylenol IV Q6hr terence, Morphine 2mg IV Q1Hr PRN, Roxicodone 5mg Q4hr PRN and 2.5mg PO Q4hr TERENCE Bowel: Senokot and Mirlax Anti-emetic: Zofran 4mg Q4HR PRN Antibiotics: Ancef 1gm Q8hr terence x 3 bags, Vanc 1000mg IV Q12HR x 2 bags DVT Prophylaxis: Lovenox 40mg daily (2) Anemia: Code(s): D64.9 - Anemia, unspecified Status: Acute Assessment and Plan: H/H are down since surgery H/H upon admission 10.4/33.6 today 8.5/27.7 anemia studies normal in November, repeat this am one unit of blood 07/18/21 continue to trend Labs in the am Dr. Farrell consulted Continue iron supplement Will need a bone marrow biopsy will need to follow up in the office (3) Syncope and collapse: Code(s): R55 - Syncope and collapse Status: Acute Assessment and Plan: Cardiology consulted Frequent falls Orthostatic blood pressure when safe from ortho neuro consulted Echo- 65-70% with grade 2 diastolic dysfunction Carotid doppler- Normal right and Left carotid artery Patient had another episode of bradycardia with syncope 07/18/21 Could be related to anemia with rapid decline of H/H. Bystolic placed on hold 07/19/21 Blurred vision and dizziness upon exam Head CT ordered Meclizine 25mg PO added (4) Essential hypertension: Code(s): I10 - Essential (primary) hypertension Status: Acute Assessment and Plan: Current blood pressure 138/50 Continue quinapril 40mg PO daily, hydrochlorothiazide 12.5mg PO daily, amlodipine 2.5mg PO daily bystolic 10mg PO daily on hold for bradycardic episode on 07/18/21 trend blood pressure Adjust medications as needed. (5) Dementia: Code(s): F03.90 - Unspecified dementia without behavioral disturbance Status: Acute Assessment and Plan: Continue Aricept 10mg PO daily and Namenda 10mg PO BID Trazodone 150mg PO at night (6) COPD (chronic obstructive pulmonary disease): Qualifiers: COPD type: unspecified COPD Qualified Code(s): J44.9 - Chronic obstructive pulmonary disease, unspecified Code(s): J44.9 - Chronic obstructive pulmonary disease, unspecified Status: Acute Assessment and Plan: No evidence of acute COPD exacerbation. Atrovent and albuterol neb Q6hr PRN for shortness of breath. Home o2 at 3LNC IS post surgery (7) Major depression, recurrent, chronic: Code(s): F33.9 - Major depressive disorder, recurrent, unspecified Status: Acute Assessment and Plan: Continue Duloxetine 60mg PO daily and trazodone 150mg PO at night Adjust medications as needed (8) Mixed hyperlipidemia: Code(s): E78.2 - Mixed hyperlipidemia Status: Acute Assessment and Plan: Atorvastatin 40mg PO daily on hold for now Continue when able Subjective Date/time seen: 07/19/21 09:15 Interval history: Patient is an 85 year old female who is here for a fall. Today she stated that she is not feeling the best today. She stated that she is weak with fatigue, dizzy, and her big complaint is that she is experiencing blurred vision. She has not gotten up and has been laying comfortably in bed with these symptoms. She also stated that she is having pain in her hip that has a burning sensation
--- NOTE | 2021-07-19 10:42 | PM.PNORT ---
Progress Note: A&P Additional Plan Patient is postop day number 3 after bipolar hemiarthroplasty left hip. She believes that her energy level is a little bit better today after the transfusion of 1 unit of packed red blood cells yesterday. Her hemoglobin is 8.5 today up from 7.3 yesterday which is the expected rise after 1 unit. No evidence of ongoing blood loss. Her platelets are 98,000 are stabilized. This argues against heparin-induced thrombocytopenia and I am going to resume her Lovenox this morning 40 mg Q 24 hours for DVT prophylaxis and will repeat we will reduce her aspirin back to the 1 baby aspirin daily. She complains of a little bit of blurriness in her vision. Her glasses are old and do not focus her vision very well but she feels that it is a little bit more than that problem. She also feels like she has a headache and feels generalized malaise. She is having discomfort in her right hip only when they move her. I am going to stop her scheduled oxycodone and see if that helps with her symptoms we will continue with the scheduled Tylenol. We will provide p.r.n. oxycodone 2.5 mg q.4 hours and I explained the patient if she would like this she can ask for it. Hematology evaluation is reviewed. They are doing a workup for possible myelodysplasia explain her chronic anemia and thrombocytopenia. Her renal function is stable. Her creatinine is 1.1 this morning no significant change. She is she is comfortable we will leave off the Celebrex. Her wound is dry there is no blood on the dressing she has no significant swelling in the hip or thigh except for perhaps minimal swelling compared to the other side. She has no tenderness in her calf and no ankle edema. She had an ABG on yesterday. Chest x-ray showed some atelectasis. She does have significant chronic COPD. Her oxygen saturation runs 99-100% on nasal cannula. I have spoken with the direct care worker and I would think that she may be ready for [facility] a prison unit on Wednesday a provided her labs remained stable. She will have a CBC and BMP again in the morning. Subjective Subjective Date/Time Seen: 07/19/21 10:42 Objective Data Vital Signs Vital Signs: Vital Signs - 24 hr 07/18/21 12:00 07/18/21 12:34 07/18/21 14:00 Temperature 36.9 C Pulse Rate 56 L 64 Respiratory Rate 16 Blood Pressure 138/45 L Pulse Oximetry 100 100 07/18/21 14:13 07/18/21 15:58 07/18/21 16:00 Temperature 36.0 C L Pulse Rate 54 L 74 58 L Respiratory Rate 20 18 Blood Pressure 133/40 L 135/44 L Pulse Oximetry 100 99 07/18/21 20:00 07/18/21 21:20 07/19/21 00:00 Temperature 36.8 C Pulse Rate 62 69 55 L Respiratory Rate 18 Blood Pressure 147/52 H Pulse Oximetry 100 07/19/21 00:53 07/19/21 04:00 07/19/21 05:50 Temperature 36.8 C 36.5 C Pulse Rate 68 60 76 Respiratory Rate 18 18 Blood Pressure 130/52 L 138/50 L Pulse Oximetry 100 100 07/19/21 08:00 07/19/21 10:05 Temperature 36.4 C Pulse Rate 59 L 66 Respiratory Rate 14 Blood Pressure 137/40 L Pulse Oximetry 100 100 Intake/Output Intake/Output: Intake & Output 07/16/21 07/17/21 07/18/21 07/19/21 23:59 23:59 23:59 23:59 Intake Total 565 2150 2145 290 Output Total 434 703 7779 400 Balance -225 1300 845 -110 Meds/Results Medications: Active Medications Generic Name Dose Route Start Last Admin Trade Name Deltaq PRN Reason Stop Dose Admin Acetaminophen 650 mg 07/17/21 12:00 07/19/21 05:07 Acetaminophen 325 Mg Tablet PO 650 mg Q6H ALCIRA Administration Albuterol 5 mg 07/16/21 02:30 Albuterol Sulfate Neb 2.5 Mg/0.5 Ml Inh INHALATION Q6HRT PRN Shortness Of Breath Amlodipine Besylate 5 mg 07/20/21 09:00 Amlodipine Besylate 5 Mg Tablet PO DAILY ALCIRA Aspirin 81 mg 07/18/21 09:00 07/19/21 08:14 Aspirin 81 Mg Enteric Tablet PO 81 mg BID ALCIRA Administration Atorvastatin Calcium 40 mg 07/17/21 09:00 07/19/21 08:15 A
[2021-07-19] MEDS: ENOXAPARIN 40 MG/0.4 ML SYRINGE SUB-Q (11:44)
[2021-07-19] MEDS: MECLIZINE HCL 25 MG TABLET PO (11:45)
--- NOTE | 2021-07-19 12:15 | PCSTNOTE ---
Please refer to the Bedside Swallow Evaluation in the EMR. Please note, silent aspiration cannot be ruled out at bedside.
[2021-07-19] MEDS: traZODone HCL 50 MG TABLET 150 MG PO (20:35)
[2021-07-20] VITALS (15 sets, daily range): BP systolic 133–162; BP diastolic 39–128; PULSE 57–78; RESP 14–18; TEMP 36.1–36.7; O2SAT 100
[2021-07-20] MEDS: ACETAMINOPHEN 325 MG TABLET 650 MG PO ×5 (00:23→23:06)
[2021-07-20] MEDS: LEVOTHYROXINE SODIUM 112 MCG TABLET PO (06:08)
[2021-07-20 06:24] LABS: Hematocrit 27.1 % (37.0-47.0); Hemoglobin 8.3 g/dL (12.0-15.0); Mean Corpuscular HGB Conc 30.6 g/dl (32-36); Mean Corpuscular Hemoglobin 29.5 pg (26-34); Mean Corpuscular Volume 96.4 fl (80-100); Mean Platelet Volume 12.4 fl (7.4-10.4); Platelet Count Result 117 k/mm3 (150-375); Red Blood Count 2.81 M/mm3 (4.2-5.4); Red Cell Distribution Width 12.7 % (11.5-14.5); White Blood Count 6.8 K/mm3 (4.5-10.0)
[2021-07-20 06:43] LABS: Anion Gap 3 mmol/L (8-16); Blood Urea Nitrogen 26 mg/dL (7-17); Calcium 8.7 mg/dL (8.4-10.2); Carbon Dioxide 30 mmol/L (22-30); Chloride 100 mmol/L (98-107); Estimated CRCL calculation 40 ml/min; Estimated Glomerular Filt Rate 53; Glucose 121 mg/dL (65-110); Sodium 133 mmol/L (137-145)
--- NOTE | 2021-07-20 07:49 | PM.PNORT ---
Progress Note: A&P Additional Plan Postop day 4. After left bipolar hemiarthroplasty for displaced left femoral neck fracture. Patient's hemoglobin is approximately same 8.3. Platelets are going up now at 117,000. continue with Lovenox for DVT prophylaxis. Believe the iron studies show possible iron deficiency anemia although the red cell indices are normal. May be anemia of chronic disease. Bone marrow biopsy on outpatient basis is being considered. Lab as a been drawn to evaluate for possible myelodysplasia. Creatinine is 1.0 centrally at baseline. She is afebrile with vital signs stable. O2 sat 100% on nasal cannula. CT scan done yesterday because of blurred vision and nausea shows extensive vascular calcifications and chronic basal ganglia lacunar infarcts and some white matter changes but no evidence of acute abnormality. TSH was elevated and free T3 was diminished. T4 is normal. Question relative hypo thyroidism. Patient has known diagnosis and is on thyroid supplement chronically. She did take 2.5 mg oxycodone yesterday evening for pain patella has otherwise been just using the Tylenol. Her nausea is resolved this morning and her vision issues have resolved this morning. Yesterday when they tried to get her up she had terrible nausea and it seemed to aggravate the vision problems. We will check a CBC tomorrow. Hopefully she will tolerate a little bit of walking a few steps in the room today. Her mental status is stable. She knew the year president day of the week and why she was here. She could not remember the name of the hospital but recognized immediately. She has had a greater than 20 lb weight loss in the last 1 year and it is not entirely clear why this is. Have talked her about using a walker 100% of the time from this point forward even after she heals her hip fracture she has been unsteady prior to this fall. Subjective Subjective Date/Time Seen: 07/20/21 07:49 Objective Data Vital Signs Vital Signs: Vital Signs - 24 hr 07/19/21 08:00 07/19/21 10:05 07/19/21 12:00 Temperature 36.4 C Pulse Rate 59 L 66 71 Respiratory Rate 14 Blood Pressure 137/40 L Pulse Oximetry 100 100 07/19/21 13:55 07/19/21 14:50 07/19/21 16:00 Temperature 36.4 C Pulse Rate 81 81 Respiratory Rate 18 Blood Pressure 156/42 H Pulse Oximetry 100 98 07/19/21 18:20 07/19/21 20:00 07/19/21 21:00 Temperature 36.1 C L 36.9 C Pulse Rate 65 71 71 Respiratory Rate 14 20 Blood Pressure 154/43 H 150/58 H Pulse Oximetry 100 100 07/19/21 21:02 07/20/21 00:00 07/20/21 00:55 Temperature 36.1 C L Pulse Rate 64 74 Respiratory Rate 18 Blood Pressure 153/39 H 156/50 H Pulse Oximetry 100 07/20/21 04:00 07/20/21 05:53 Temperature 36.4 C L Pulse Rate 57 L 57 L Respiratory Rate 18 Blood Pressure 144/48 H Pulse Oximetry 100 Intake/Output Intake/Output: Intake & Output 07/17/21 07/18/21 07/19/21 07/20/21 23:59 23:59 23:59 23:59 Intake Total 2150 2145 700 200 Output Total 850 1300 500 Balance 1300 845 200 200 Meds/Results Medications: Active Medications Generic Name Dose Route Start Last Admin Trade Name Freq PRN Reason Stop Dose Admin Acetaminophen 650 mg 07/17/21 12:00 07/20/21 06:08 Acetaminophen 325 Mg Tablet PO 650 mg Q6H ALCIRA Administration Albuterol 5 mg 07/16/21 02:30 Albuterol Sulfate Neb 2.5 Mg/0.5 Ml Inh INHALATION Q6HRT PRN Shortness Of Breath Amlodipine Besylate 5 mg 07/20/21 09:00 Amlodipine Besylate 5 Mg Tablet PO DAILY ALCIRA Aspirin 81 mg 07/20/21 09:00 Aspirin 81 Mg Enteric Tablet PO QAM ALCIRA Atorvastatin Calcium 40 mg 07/17/21 09:00 07/19/21 08:15 Atorvastatin 40 Mg Tablet PO 40 mg DAILY ALCIRA Administration Donepezil HCl 10 mg 07/16/21 09:00 07/19/21 08:14 Donepezil Hcl 10 Mg Tablet PO 10 mg DAILY ALCIRA Administration Duloxetine HCl 60 mg 07/16/21 09:00 07/19/21 08:14 Duloxetine
[2021-07-20] MEDS: polyethylene glycoL 3350 17 GM POWD.PACK PO (08:36)
[2021-07-20] MEDS: SENNA/DOCUSATE SODIUM TABLET 2 TAB PO ×2 (08:36→18:04)
[2021-07-20] MEDS: FERROUS SULFATE 324 MG TABLET PO ×2 (08:36→18:04)
[2021-07-20] MEDS: POTASSIUM CHLORIDE 20 MEQ TABLET PO (08:36)
[2021-07-20] MEDS: ATORVASTATIN 40 MG TABLET PO (08:37)
[2021-07-20] MEDS: amLODIPine BESYLATE 5 MG TABLET PO (08:37)
[2021-07-20] MEDS: MEMANTINE 10 MG TABLET PO ×2 (08:37→18:04)
[2021-07-20] MEDS: FAMOTIDINE 20 MG TABLET 40 MG PO (08:37)
[2021-07-20] MEDS: MIRABEGRON 50 MG ER TABLET PO (08:37)
[2021-07-20] MEDS: LORATADINE 10 MG TABLET PO (08:37)
[2021-07-20] MEDS: EZETIMIBE 10 MG TABLET PO (08:37)
[2021-07-20] MEDS: DONEPEZIL HCL 10 MG TABLET PO (08:37)
[2021-07-20] MEDS: ASPIRIN 81 MG ENTERIC TABLET PO (08:37)
[2021-07-20] MEDS: DULoxetine HCL 60 MG CAPSULE.DR PO (08:37)
[2021-07-20] MEDS: ENOXAPARIN 40 MG/0.4 ML SYRINGE SUB-Q (08:37)
[2021-07-20] MEDS: MECLIZINE HCL 25 MG TABLET PO (08:46)
--- NOTE | 2021-07-20 09:23 | P.PNIM_ITS ---
Progress Note: A&P Assessment and Plan (1) Closed fracture of neck of left femur: Qualifiers: Encounter type: initial encounter Qualified Code(s): S72.002A - Fracture of unspecified part of neck of left femur, initial encounter for closed fracture Code(s): S72.002A - Fracture of unspecified part of neck of left femur, initial encounter for closed fracture Status: Acute Assessment and Plan: * Fall, Hip and pelvis xray shows Left subcapital femoral neck fracture * Post op day 4 * ortho consulted thank you for your help, surgical intervention on 07/16/21 * Ortho to manage post care. * Pain: Tylenol IV Q6hr terence, Morphine 2mg IV Q1Hr PRN, Roxicodone 5mg Q4hr PRN and 2.5mg PO Q4hr TERENCE * Bowel: Senokot and Mirlax, BM yesterday * Anti-emetic: Zofran 4mg Q4HR PRN * Antibiotics: Ancef 1gm Q8hr terence x 3 bags, Vanc 1000mg IV Q12HR x 2 bags * DVT Prophylaxis: Lovenox 40mg daily (2) Anemia: Code(s): D64.9 - Anemia, unspecified Status: Acute Assessment and Plan: * H/H are down since surgery * H/H upon admission 10.4/33.6 today 8.5/27.7 * anemia studies normal in November, repeat this am * one unit of blood 07/18/21 * continue to trend * Labs in the am * Dr. Farrell consulted * Continue iron supplement * Will need a bone marrow biopsy * will need to follow up in the office (3) Syncope and collapse: Code(s): R55 - Syncope and collapse Status: Acute Assessment and Plan: * Cardiology consulted * Frequent falls * Orthostatic blood pressure when safe from ortho * neuro consulted * Echo- 65-70% with grade 2 diastolic dysfunction * Carotid doppler- Normal right and Left carotid artery * Patient had another episode of bradycardia with syncope 07/18/21 * Could be related to anemia with rapid decline of H/H. * Bystolic placed on hold 07/19/21 * Blurred vision and dizziness seem better * Head CT: Cerebral atherosclerosis and chronic small vessel ischemic changes of the cerebral white matter, Chronic left basal ganglia lacunar infarcts * Meclizine 25mg PO added (4) Hypothyroid: Code(s): E03.9 - Hypothyroidism, unspecified Status: Acute Assessment and Plan: * TSH 5.780, T4 1.81, T3 0.86 * On 100mcg of levothyroxine at home * Increased levothyroxine on 07/19/21 to 112mcg PO in the am * She will need follow up on this with her PCP for further dosing (5) Essential hypertension: Code(s): I10 - Essential (primary) hypertension Status: Acute Assessment and Plan: * Current blood pressure 144/48 * Continue quinapril 40mg PO daily, hydrochlorothiazide 12.5mg PO daily, amlodipine 2.5mg PO daily * bystolic 10mg PO daily on hold for bradycardic episode on 07/18/21 * trend blood pressure * Adjust medications as needed. (6) Dementia: Code(s): F03.90 - Unspecified dementia without behavioral disturbance Status: Acute Assessment and Plan: * Continue Aricept 10mg PO daily and Namenda 10mg PO BID * Trazodone 150mg PO at night (7) COPD (chronic obstructive pulmonary disease): Qualifiers: COPD type: unspecified COPD Qualified Code(s): J44.9 - Chronic obstructive pulmonary disease, unspecified Code(s): J44.9 - Chronic obstructive pulmonary disease, unspecified Status: Acute Assessment and Plan: * No evidence of acute COPD exacerbation. * Atrovent and albuterol neb Q6hr PRN
--- NOTE | 2021-07-20 09:23 | PM.IMPN ---
Progress Note: A&P Assessment and Plan (1) Closed fracture of neck of left femur: Qualifiers: Encounter type: initial encounter Qualified Code(s): S72.002A - Fracture of unspecified part of neck of left femur, initial encounter for closed fracture Code(s): S72.002A - Fracture of unspecified part of neck of left femur, initial encounter for closed fracture Status: Acute Assessment and Plan: Fall, Hip and pelvis xray shows Left subcapital femoral neck fracture Post op day 4 ortho consulted thank you for your help, surgical intervention on 07/16/21 Ortho to manage post care. Pain: Tylenol IV Q6hr terence, Morphine 2mg IV Q1Hr PRN, Roxicodone 5mg Q4hr PRN and 2.5mg PO Q4hr TERENCE Bowel: Senokot and Mirlax, BM yesterday Anti-emetic: Zofran 4mg Q4HR PRN Antibiotics: Ancef 1gm Q8hr terence x 3 bags, Vanc 1000mg IV Q12HR x 2 bags DVT Prophylaxis: Lovenox 40mg daily (2) Anemia: Code(s): D64.9 - Anemia, unspecified Status: Acute Assessment and Plan: H/H are down since surgery H/H upon admission 10.4/33.6 today 8.5/27.7 anemia studies normal in November, repeat this am one unit of blood 07/18/21 continue to trend Labs in the am Dr. Farrell consulted Continue iron supplement Will need a bone marrow biopsy will need to follow up in the office (3) Syncope and collapse: Code(s): R55 - Syncope and collapse Status: Acute Assessment and Plan: Cardiology consulted Frequent falls Orthostatic blood pressure when safe from ortho neuro consulted Echo- 65-70% with grade 2 diastolic dysfunction Carotid doppler- Normal right and Left carotid artery Patient had another episode of bradycardia with syncope 07/18/21 Could be related to anemia with rapid decline of H/H. Bystolic placed on hold 07/19/21 Blurred vision and dizziness seem better Head CT: Cerebral atherosclerosis and chronic small vessel ischemic changes of the cerebral white matter, Chronic left basal ganglia lacunar infarcts Meclizine 25mg PO added (4) Hypothyroid: Code(s): E03.9 - Hypothyroidism, unspecified Status: Acute Assessment and Plan: TSH 5.780, T4 1.81, T3 0.86 On 100mcg of levothyroxine at home Increased levothyroxine on 07/19/21 to 112mcg PO in the am She will need follow up on this with her PCP for further dosing (5) Essential hypertension: Code(s): I10 - Essential (primary) hypertension Status: Acute Assessment and Plan: Current blood pressure 144/48 Continue quinapril 40mg PO daily, hydrochlorothiazide 12.5mg PO daily, amlodipine 2.5mg PO daily bystolic 10mg PO daily on hold for bradycardic episode on 07/18/21 trend blood pressure Adjust medications as needed. (6) Dementia: Code(s): F03.90 - Unspecified dementia without behavioral disturbance Status: Acute Assessment and Plan: Continue Aricept 10mg PO daily and Namenda 10mg PO BID Trazodone 150mg PO at night (7) COPD (chronic obstructive pulmonary disease): Qualifiers: COPD type: unspecified COPD Qualified Code(s): J44.9 - Chronic obstructive pulmonary disease, unspecified Code(s): J44.9 - Chronic obstructive pulmonary disease, unspecified Status: Acute Assessment and Plan: No evidence of acute COPD exacerbation. Atrovent and albuterol neb Q6hr PRN for shortness of breath. Home o2 at 3LNC IS post surgery (8) Major depression, recurrent, chronic: Code(s): F33.9 - Major depressive disorder, recurrent, unspecified Status: Acute Assessment and Plan: Continue Duloxetine 60mg PO daily and trazodone 150mg PO at night Adjust medications as needed (9) Mixed hyperlipidemia: Code(s): E78.2 - Mixed hyperlipidemia Status: Acute Assessment and Plan: Atorvastatin 40mg PO daily on hold for now Continue when abl
[2021-07-20] MEDS: traZODone HCL 50 MG TABLET 150 MG PO (20:23)
[2021-07-21] VITALS (15 sets, daily range): BP systolic 136–170; BP diastolic 37–52; PULSE 64–84; RESP 16–20; TEMP 36–37.1; O2SAT 98–100
[2021-07-21] MEDS: LEVOTHYROXINE SODIUM 112 MCG TABLET PO (05:30)
[2021-07-21] MEDS: ACETAMINOPHEN 325 MG TABLET 650 MG PO ×3 (05:30→23:03)
[2021-07-21 06:03] LABS: Hematocrit 27.6 % (37.0-47.0); Hemoglobin 8.1 g/dL (12.0-15.0); Mean Corpuscular HGB Conc 29.3 g/dl (32-36); Mean Corpuscular Hemoglobin 28.2 pg (26-34); Mean Corpuscular Volume 96.2 fl (80-100); Mean Platelet Volume 11.9 fl (7.4-10.4); Platelet Count Result 179 k/mm3 (150-375); Red Blood Count 2.87 M/mm3 (4.2-5.4); Red Cell Distribution Width 12.4 % (11.5-14.5)
[2021-07-21 06:10] LABS: Potassium 3.9 mmol/L (3.4-5.0)
--- NOTE | 2021-07-21 08:45 | PM.PNORT ---
Progress Note: A&P Additional Plan Patient's hemoglobin is trending down. It is 8.1 today. 8.3 yesterday. 8.5 the day before. She has acute blood loss anemia superimposed on chronic anemia and may have myelodysplasia as well which may explain poor Marrow response to correct her acute blood loss anemia. She reports that she felt extremely tired yesterday and lightheaded and she feels lightheaded this morning. This may be multifactorial but her anemia is correctable and I would recommend a transfusion of 1 more unit of packed red blood cells this morning. We will check a CBC tomorrow morning and if stable I think she will be ready to transfer to [facility] at that time. Subjective Subjective Date/Time Seen: 07/21/21 08:45 Objective Data Vital Signs Vital Signs: Vital Signs - 24 hr 07/20/21 10:29 07/20/21 12:00 07/20/21 14:37 Temperature 36.7 C 36.3 C L Pulse Rate 70 76 66 Respiratory Rate 16 14 Blood Pressure 134/47 L 133/39 L Pulse Oximetry 100 100 07/20/21 16:00 07/20/21 17:25 07/20/21 20:00 Temperature 36.7 C Pulse Rate 78 75 78 Respiratory Rate 14 14 Blood Pressure 154/53 H Pulse Oximetry 100 100 07/20/21 21:55 07/20/21 22:00 07/20/21 22:43 Temperature 36.1 C L Pulse Rate 75 78 Respiratory Rate 14 18 Blood Pressure 152/58 H 133/54 L Pulse Oximetry 100 100 07/20/21 22:44 07/21/21 00:00 07/21/21 01:08 Temperature 36.1 C L Pulse Rate 68 66 Respiratory Rate 18 Blood Pressure 162/128 H 138/52 L Pulse Oximetry 98 07/21/21 04:00 07/21/21 07:18 Temperature 37.1 C Pulse Rate 77 82 Respiratory Rate 16 Blood Pressure 147/51 H Pulse Oximetry 100 Intake/Output Intake/Output: Intake & Output 07/18/21 07/19/21 07/20/21 07/21/21 23:59 23:59 23:59 23:59 Intake Total 2145 700 1030 250 Output Total 1300 500 200 Balance 575 672 3162 50 Meds/Results Medications: Active Medications Generic Name Dose Route Start Last Admin Trade Name Freq PRN Reason Stop Dose Admin Acetaminophen 650 mg 07/17/21 12:00 07/21/21 05:30 Acetaminophen 325 Mg Tablet PO 650 mg Q6H ALCIRA Administration Albuterol 5 mg 07/16/21 02:30 Albuterol Sulfate Neb 2.5 Mg/0.5 Ml Inh INHALATION Q6HRT PRN Shortness Of Breath Amlodipine Besylate 5 mg 07/20/21 09:00 07/20/21 08:37 Amlodipine Besylate 5 Mg Tablet PO 5 mg DAILY ALCIRA Administration Aspirin 81 mg 07/20/21 09:00 07/20/21 08:37 Aspirin 81 Mg Enteric Tablet PO 81 mg QAM ALCIRA Administration Atorvastatin Calcium 40 mg 07/17/21 09:00 07/20/21 08:37 Atorvastatin 40 Mg Tablet PO 40 mg DAILY ALCIRA Administration Donepezil HCl 10 mg 07/16/21 09:00 07/20/21 08:37 Donepezil Hcl 10 Mg Tablet PO 10 mg DAILY ALCIRA Administration Duloxetine HCl 60 mg 07/16/21 09:00 07/20/21 08:37 Duloxetine Hcl 60 Mg Capsule.Dr PO 60 mg DAILY ALCIRA Administration Ezetimibe 10 mg 07/17/21 09:00 07/20/21 08:37 Ezetimibe 10 Mg Tablet PO 10 mg DAILY ALCIRA Administration Enoxaparin Sodium 40 mg 07/19/21 10:45 07/20/21 08:37 Enoxaparin 40 Mg/0.4 Ml Syringe SUB-Q 40 mg DAILY ALCIRA Administration Famotidine 40 mg 07/16/21 09:00 07/20/21 08:37 Famotidine 20 Mg Tablet PO 40 mg DAILY ALCIRA Administration Ferrous Sulfate 324 mg 07/18/21 17:45 07/20/21 18:04 Ferrous Sulfate 324 Mg Tablet PO 324 mg BID ALCIRA Administration Ipratropium [place] 0.5 mg 07/16/21 02:30 Ipratropium Br 0.02% Inh Soln 0.5 Mg/2.5 Ml Vial INHALATION Q6HRT PRN Shortness Of Breath Levothyroxine Sodium 112 mcg 07/20/21 06:30 07/21/21 05:30 Levothyroxine Sodium 112 Mcg Tablet PO 112 mcg DAILY@0630 ALCIRA Administration Loratadine 10 mg 07/16/21 09:00 07/20/21 08:37 Loratadine 10 Mg Tablet PO 10 mg QAM ALCIRA Administration Meclizine HCl 25 mg 07/19/21 09:45 07/20/21 08:46 Meclizine Hcl 25 Mg Tablet PO 25 mg Q6HR PRN Administration dizz
--- NOTE | 2021-07-21 09:09 | PCPTNOTE ---
Attempted to see patient for PT, patient declined due to using the restroom and wanting to eat her breakfast.
[2021-07-21] MEDS: ENOXAPARIN 40 MG/0.4 ML SYRINGE SUB-Q (09:33)
[2021-07-21] MEDS: FAMOTIDINE 20 MG TABLET 40 MG PO (09:34)
[2021-07-21] MEDS: FERROUS SULFATE 324 MG TABLET PO ×2 (09:34→18:30)
[2021-07-21] MEDS: SENNA/DOCUSATE SODIUM TABLET 2 TAB PO ×2 (09:34→18:30)
[2021-07-21] MEDS: POTASSIUM CHLORIDE 20 MEQ TABLET PO (09:34)
[2021-07-21] MEDS: DONEPEZIL HCL 10 MG TABLET PO (09:34)
[2021-07-21] MEDS: EZETIMIBE 10 MG TABLET PO (09:34)
[2021-07-21] MEDS: MEMANTINE 10 MG TABLET PO ×2 (09:34→18:30)
[2021-07-21] MEDS: MIRABEGRON 50 MG ER TABLET PO (09:35)
[2021-07-21] MEDS: amLODIPine BESYLATE 5 MG TABLET PO (09:35)
[2021-07-21] MEDS: ATORVASTATIN 40 MG TABLET PO (09:35)
[2021-07-21] MEDS: DULoxetine HCL 60 MG CAPSULE.DR PO (09:35)
[2021-07-21] MEDS: LORATADINE 10 MG TABLET PO (09:35)
[2021-07-21] MEDS: ASPIRIN 81 MG ENTERIC TABLET PO (09:35)
[2021-07-21] MEDS: polyethylene glycoL 3350 17 GM POWD.PACK PO (09:36)
--- NOTE | 2021-07-21 10:02 | P.PNIM_ITS ---
Progress Note: A&P Assessment and Plan (1) Closed fracture of neck of left femur: Qualifiers: Encounter type: initial encounter Qualified Code(s): S72.002A - Fracture of unspecified part of neck of left femur, initial encounter for closed fracture Code(s): S72.002A - Fracture of unspecified part of neck of left femur, initial encounter for closed fracture Status: Acute Assessment and Plan: * Fall, Hip and pelvis xray shows Left subcapital femoral neck fracture * Post op day 5 * ortho consulted thank you for your help, surgical intervention on 07/16/21 * Ortho to manage post care. * Pain: Tylenol IV Q6hr terence, Morphine 2mg IV Q1Hr PRN, Roxicodone 5mg Q4hr PRN and 2.5mg PO Q4hr TERENCE * Bowel: Senokot and Mirlax, BM yesterday * Anti-emetic: Zofran 4mg Q4HR PRN * Antibiotics: Ancef 1gm Q8hr terence x 3 bags, Vanc 1000mg IV Q12HR x 2 bags * DVT Prophylaxis: Lovenox 40mg daily (2) Anemia: Code(s): D64.9 - Anemia, unspecified Status: Acute Assessment and Plan: * H/H are down since surgery * H/H upon admission 10.4/33.6 today 8.1/27.6 * anemia studies normal in November, repeat this am * one unit of blood 07/18/21 and another 07/21/21 * continue to trend * Labs in the am * Dr. Farrell consulted * Continue iron supplement * Will need a bone marrow biopsy * will need to follow up in the office (3) Syncope and collapse: Code(s): R55 - Syncope and collapse Status: Acute Assessment and Plan: * Cardiology consulted * Frequent falls * Orthostatic blood pressure when safe from ortho * neuro consulted * Echo- 65-70% with grade 2 diastolic dysfunction * Carotid doppler- Normal right and Left carotid artery * Patient had another episode of bradycardia with syncope 07/18/21 * Could be related to anemia with rapid decline of H/H. * Bystolic placed on hold 07/19/21 * Blurred vision and dizziness seem better * Head CT: Cerebral atherosclerosis and chronic small vessel ischemic changes of the cerebral white matter, Chronic left basal ganglia lacunar infarcts * Meclizine 25mg PO added (4) Hypothyroid: Code(s): E03.9 - Hypothyroidism, unspecified Status: Acute Assessment and Plan: * TSH 5.780, T4 1.81, T3 0.86 * On 100mcg of levothyroxine at home * Increased levothyroxine on 07/19/21 to 112mcg PO in the am * She will need follow up on this with her PCP for further dosing (5) Essential hypertension: Code(s): I10 - Essential (primary) hypertension Status: Acute Assessment and Plan: * Current blood pressure 147/51 * Continue quinapril 40mg PO daily, hydrochlorothiazide 12.5mg PO daily, amlod ipine 2.5mg PO daily * bystolic 10mg PO daily on hold for bradycardic episode on 07/18/21 * trend blood pressure * Adjust medications as needed. (6) Dementia: Code(s): F03.90 - Unspecified dementia without behavioral disturbance Status: Acute Assessment and Plan: * Continue Aricept 10mg PO daily and Namenda 10mg PO BID * Trazodone 150mg PO at night (7) COPD (chronic obstructive pulmonary disease): Qualifiers: COPD type: unspecified COPD Qualified Code(s): J44.9 - Chronic obstructive pulmonary disease, unspecified Code(s): J44.9 - Chronic obstructive pulmonary disease, unspecified Status: Acute Assessment and Plan: * No evidence of acute COPD exacerbation. * Atrovent and alb
--- NOTE | 2021-07-21 10:02 | PM.IMPN ---
Progress Note: A&P Assessment and Plan (1) Closed fracture of neck of left femur: Qualifiers: Encounter type: initial encounter Qualified Code(s): S72.002A - Fracture of unspecified part of neck of left femur, initial encounter for closed fracture Code(s): S72.002A - Fracture of unspecified part of neck of left femur, initial encounter for closed fracture Status: Acute Assessment and Plan: Fall, Hip and pelvis xray shows Left subcapital femoral neck fracture Post op day 5 ortho consulted thank you for your help, surgical intervention on 07/16/21 Ortho to manage post care. Pain: Tylenol IV Q6hr terence, Morphine 2mg IV Q1Hr PRN, Roxicodone 5mg Q4hr PRN and 2.5mg PO Q4hr TERENCE Bowel: Senokot and Mirlax, BM yesterday Anti-emetic: Zofran 4mg Q4HR PRN Antibiotics: Ancef 1gm Q8hr terence x 3 bags, Vanc 1000mg IV Q12HR x 2 bags DVT Prophylaxis: Lovenox 40mg daily (2) Anemia: Code(s): D64.9 - Anemia, unspecified Status: Acute Assessment and Plan: H/H are down since surgery H/H upon admission 10.4/33.6 today 8.1/27.6 anemia studies normal in November, repeat this am one unit of blood 07/18/21 and another 07/21/21 continue to trend Labs in the am Dr. Farrell consulted Continue iron supplement Will need a bone marrow biopsy will need to follow up in the office (3) Syncope and collapse: Code(s): R55 - Syncope and collapse Status: Acute Assessment and Plan: Cardiology consulted Frequent falls Orthostatic blood pressure when safe from ortho neuro consulted Echo- 65-70% with grade 2 diastolic dysfunction Carotid doppler- Normal right and Left carotid artery Patient had another episode of bradycardia with syncope 07/18/21 Could be related to anemia with rapid decline of H/H. Bystolic placed on hold 07/19/21 Blurred vision and dizziness seem better Head CT: Cerebral atherosclerosis and chronic small vessel ischemic changes of the cerebral white matter, Chronic left basal ganglia lacunar infarcts Meclizine 25mg PO added (4) Hypothyroid: Code(s): E03.9 - Hypothyroidism, unspecified Status: Acute Assessment and Plan: TSH 5.780, T4 1.81, T3 0.86 On 100mcg of levothyroxine at home Increased levothyroxine on 07/19/21 to 112mcg PO in the am She will need follow up on this with her PCP for further dosing (5) Essential hypertension: Code(s): I10 - Essential (primary) hypertension Status: Acute Assessment and Plan: Current blood pressure 147/51 Continue quinapril 40mg PO daily, hydrochlorothiazide 12.5mg PO daily, amlodipine 2.5mg PO daily bystolic 10mg PO daily on hold for bradycardic episode on 07/18/21 trend blood pressure Adjust medications as needed. (6) Dementia: Code(s): F03.90 - Unspecified dementia without behavioral disturbance Status: Acute Assessment and Plan: Continue Aricept 10mg PO daily and Namenda 10mg PO BID Trazodone 150mg PO at night (7) COPD (chronic obstructive pulmonary disease): Qualifiers: COPD type: unspecified COPD Qualified Code(s): J44.9 - Chronic obstructive pulmonary disease, unspecified Code(s): J44.9 - Chronic obstructive pulmonary disease, unspecified Status: Acute Assessment and Plan: No evidence of acute COPD exacerbation. Atrovent and albuterol neb Q6hr PRN for shortness of breath. Home o2 at 3LNC IS post surgery (8) Major depression, recurrent, chronic: Code(s): F33.9 - Major depressive disorder, recurrent, unspecified Status: Acute Assessment and Plan: Continue Duloxetine 60mg PO daily and trazodone 150mg PO at night Adjust medications as needed (9) Mixed hyperlipidemia: Code(s): E78.2 - Mixed hyperlipidemia Status: Acute Assessment and Plan: Atorvastatin 40mg PO daily on hold for now
--- NOTE | 2021-07-21 10:51 | PCNFU ---
Nutrition Follow-Up Complete: Inadequate oral intake related to decreased appetite and altered taste as evidenced by statements by patient and daughter in law, including reported 15-20 pound weight loss without trying. Goal: Patient to meet estimated nutritional needs. Progressing towards goal. We will continue current goal. Pt current nutrition is Regular with Frozen Nutritional Treat BID. Nutrition recommendation: Ensure Compact BID, discontinue the Frozen Nutritional Treat. Last recorded weight is 74.6 kg, no new weight to report. Bowel Motility:+BM reported 07/18 Labs Reviewed:Hgb 8.1,Hct 27.6 Meds Noted:KCL tablet,Senokot, Aricept, Pepcid,Norvasc, Lipitor, Norvasc. Additional Notes:Nutrition follow up. Spoke with patient today. Oral Intake good, 90% of breakfast. diet supplement has been changed. Plans for unit of blood today. Agree with diet orders. Monitoring: Follow up every 5 days.
[2021-07-21] MEDS: SODIUM CHLORIDE 0.9% IV 250 ML 30 ML IV CONT (11:30)
--- NOTE | 2021-07-21 13:25 | PCPTNOTE ---
Attempted to see patient for PT this afternoon, however unable due to patient receiving blood transfusion.
[2021-07-21] MEDS: traZODone HCL 50 MG TABLET 150 MG PO (20:17)
[2021-07-22] VITALS: PULSE 70
[2021-07-22 04:00] VITALS: PULSE 66
[2021-07-22 05:19] VITALS: BP 147/56; PULSE 70; RESP 18; TEMP 36.4; O2SAT 100
[2021-07-22] MEDS: LEVOTHYROXINE SODIUM 112 MCG TABLET PO (05:33)
[2021-07-22] MEDS: ACETAMINOPHEN 325 MG TABLET 650 MG PO ×3 (05:33→17:08)
[2021-07-22 05:49] LABS: Hemoglobin 9.8 g/dL (12.0-15.0); Mean Corpuscular HGB Conc 30.6 g/dl (32-36); Mean Corpuscular Hemoglobin 29.3 pg (26-34); Mean Corpuscular Volume 95.8 fl (80-100); Mean Platelet Volume 11.3 fl (7.4-10.4); Platelet Count Result 205 k/mm3 (150-375); Red Blood Count 3.34 M/mm3 (4.2-5.4); Red Cell Distribution Width 13.1 % (11.5-14.5); White Blood Count 7.9 K/mm3 (4.5-10.0)
[2021-07-22 08:00] VITALS: PULSE 124
[2021-07-22 08:55] VITALS: O2SAT 100
[2021-07-22] MEDS: POTASSIUM CHLORIDE 20 MEQ TABLET PO (08:57)
[2021-07-22] MEDS: FAMOTIDINE 20 MG TABLET 40 MG PO (08:57)
[2021-07-22] MEDS: DONEPEZIL HCL 10 MG TABLET PO (08:57)
[2021-07-22] MEDS: DULoxetine HCL 60 MG CAPSULE.DR PO (08:57)
[2021-07-22] MEDS: FERROUS SULFATE 324 MG TABLET PO ×2 (08:57→17:06)
[2021-07-22] MEDS: polyethylene glycoL 3350 17 GM POWD.PACK PO (08:57)
[2021-07-22] MEDS: EZETIMIBE 10 MG TABLET PO (08:57)
[2021-07-22] MEDS: amLODIPine BESYLATE 5 MG TABLET PO (08:57)
[2021-07-22] MEDS: MEMANTINE 10 MG TABLET PO ×2 (08:57→17:06)
[2021-07-22] MEDS: ASPIRIN 81 MG ENTERIC TABLET PO (08:58)
[2021-07-22] MEDS: ATORVASTATIN 40 MG TABLET PO (08:58)
[2021-07-22] MEDS: SENNA/DOCUSATE SODIUM TABLET 2 TAB PO ×2 (08:59→17:05)
[2021-07-22] MEDS: LORATADINE 10 MG TABLET PO (08:59)
[2021-07-22] MEDS: ENOXAPARIN 40 MG/0.4 ML SYRINGE SUB-Q (08:59)
[2021-07-22] MEDS: MIRABEGRON 50 MG ER TABLET PO (08:59)
[2021-07-22 10:26] LABS: Methylmalonic Acid 294 nmol/L (87-318)
--- NOTE | 2021-07-22 10:56 | PC.NURSE ---
Dr Kramer called and asked how patient was doing and stated that it is ok to discharge patient to SNF.
[2021-07-22 11:08] VITALS: BP 150/47; PULSE 76; RESP 22; TEMP 36.1; O2SAT 100
--- NOTE | 2021-07-22 12:22 | PC.NURSE ---
On 07/22/21, the student, Charly Palma, provided care and completed [facility] documentation on this patient. I have reviewed the student's documentation and agree with the findings.
--- NOTE | 2021-07-22 13:42 | PC.NURSE ---
On 07/22/21, the student, Dimple Olmstead, provided care and completed [facility] documentation on this patient. I have reviewed the student's documentation and agree with the findings.
[2021-07-23 16:22] LABS: Soluble Transferrin Receptor 0.65 mg/L (0.76-1.76)
== END 2021-07-22 17:45 | DRG 522 ==
LOC: ANHED 23:34 → ANH2MED 07-16 00:09
PROVIDERS: Emergency Medicine; Internal Medicine Hematology & Oncology; Orthopaedic Surgery; Admitting Provider Internal Medicine; Emergency Provider Emergency Medicine; PCP Family Medicine; Visit Provider Nurse Practitioner
PROC: 0SRS0JA Replacement of Left Hip Joint, Femoral Surface with Synthetic Substitute, Uncemented, Open Approach (ICD-10-PCS; CPT 27125; principal; 2021-07-16 16:00)
DX: S72.012A Unspecified intracapsular fracture of left femur, initial encounter for closed fracture (principal); J96.11 Chronic respiratory failure with hypoxia; F33.9 Major depressive disorder, recurrent, unspecified; F03.90 Unspecified dementia, unspecified severity, without behavioral disturbance, psychotic disturbance, mood disturbance, and anxiety; D64.9 Anemia, unspecified; R55 Syncope and collapse; W18.30XA Fall on same level, unspecified, initial encounter; R29.6 Repeated falls; R42 Dizziness and giddiness; H53.8 Other visual disturbances; E03.8 Other specified hypothyroidism; I10 Essential (primary) hypertension; R07.9 Chest pain, unspecified; I44.7 Left bundle-branch block, unspecified; M15.0 Primary generalized (osteo)arthritis; J44.9 Chronic obstructive pulmonary disease, unspecified; G47.33 Obstructive sleep apnea (adult) (pediatric); Z99.81 Dependence on supplemental oxygen; I25.118 Atherosclerotic heart disease of native coronary artery with other forms of angina pectoris; E78.2 Mixed hyperlipidemia; N39.41 Urge incontinence; R25.1 Tremor, unspecified; Z66 Do not resuscitate; Z98.42 Cataract extraction status, left eye; Z98.41 Cataract extraction status, right eye; Z96.1 Presence of intraocular lens; Z79.82 Long term (current) use of aspirin; Z79.899 Other long term (current) drug therapy; Z88.0 Allergy status to penicillin; Z88.2 Allergy status to sulfonamides; Z99.89 Dependence on other enabling machines and devices
CPT/HCPCS: 36415; 36430; 36600; 70450; 71045; 73501; 73502; 80048; 80053; 81001; 82306; 82607; 82728; 82746; 82805; 83540; 83550; 83615; 83921; 84132; 84238; 84439; 84443; 84466; 84480; 85025; 85027; 85055; 85610; 85730; 86850; 86900; 86901; 86920; 88307; 88311; 92610; 93005; 93306; 93880; 96374; 96375; 97110; 97116; 97161; 97165; 97530; 97535; 99285; A9270; J0131; J0171; J0330; J0360; J0690; J1100; J1170; J1650; J1885; J2270; J2405; J2704; J2795; J3010; J3370; J7050; J7120; P9016

== ENCOUNTER 2021-08-20 12:33 | Outpatient (CLI) | payer MEDICARE, SELFPAY ==
--- NOTE | ~2021-08-20 | US_ITS ---
EXAMINATION: US venous doppler [facility] EXAM DATE: 08/20/2021 13:11 INDICATION: Left leg swelling. TECHNIQUE: Multiple grayscale, color flow and Doppler images of the left lower extremity deep venous system were obtained and reviewed. There is no prior study for comparison. FINDINGS: The left common femoral, femoral and profunda veins demonstrate normal color flow, respirat ory variation, augmentation and compressibility. Compressibility, color flow confirmed within the le ft popliteal, posterior tibial, peroneal, and greater saphenous veins. IMPRESSION: 1. No left lower extremity deep venous thrombosis. Reviewed, dictated and finalized at location A.
== END 2021-08-20 12:34 | disposition home or self-care (01) ==
PROVIDERS: PCP Family Medicine; Visit Provider Orthopaedic Surgery
DX: R60.0 Localized edema (principal)
CPT/HCPCS: 93971

== ENCOUNTER 2021-08-21 12:40 | Outpatient (CLI) | payer OTHER, MEDICARE, SELFPAY ==
[2021-08-21 13:05] LABS: Basophils Percent Auto 0.5 % (0.2-1.2); Eosinophils Absolute Auto 0.2 K/mm3 (0-0.3); Eosinophils Percent Auto 3.8 % (0-4.4); Hematocrit 32.1 % (37.0-47.0); Hemoglobin 9.8 g/dL (12.0-15.0); Immature Granulocyte Absolute 0.03 K/mm3 (0.00-0.031); Immature Granulocyte Percent A 0.5 % (0-0.5); Lymphocytes Absolute Auto 0.94 K/mm3 (0.9-3.2); Lymphocytes Percent Auto 17.1 % (18.3-44.2); Mean Corpuscular HGB Conc 30.5 g/dl (32-36); Mean Corpuscular Hemoglobin 29.7 pg (26-34); Mean Corpuscular Volume 97.3 fl (80-100); Mean Platelet Volume 9.4 fl (7.4-10.4); Monocytes Absolute Auto 0.6 K/mm3 (0.1-0.6); Monocytes Percent Auto 10.4 % (2.6-8.5); Neutrophils Absolute Auto 3.7 K/mm3 (1.3-6.7); Neutrophils Percent Auto 67.7 % (45.5-73.1); Platelet Count Result 190 k/mm3 (150-375); Red Cell Distribution Width 14.5 % (11.5-14.5); White Blood Count 5.5 K/mm3 (4.5-10.0)
[2021-08-21 16:28] LABS: Anion Gap 7 mmol/L (8-16); Blood Urea Nitrogen 18 mg/dL (7-17); Calcium 9.3 mg/dL (8.4-10.2); Carbon Dioxide 35 mmol/L (22-30); Chloride 98 mmol/L (98-107); Estimated Glomerular Filt Rate 53; Glucose 99 mg/dL (65-110); Potassium 4.6 mmol/L (3.4-5.0); Sodium 140 mmol/L (137-145)
[2021-08-21 16:37] LABS: Iron 60 ug/dL (37-170)
[2021-08-21 16:48] LABS: Percent Iron Saturation 24 % (20-50)
[2021-08-21 17:34] LABS: Folic Acid > 20.0 ng/mL (2.76->20)
== END 2021-08-21 12:41 | disposition home or self-care (01) ==
LOC: ANHLAB 12:44
PROVIDERS: PCP Family Medicine; Visit Provider Internal Medicine Hematology & Oncology
DX: D64.9 Anemia, unspecified (principal)
CPT/HCPCS: 36415; 80048; 82607; 82728; 82746; 83540; 83550; 85025

== ENCOUNTER 2021-11-07 19:46 | Inpatient (IN) | payer MEDICARE, SELFPAY ==
[2021-11-07] VITALS (39 sets, daily range): BP systolic 86–131; BP diastolic 42–82; PULSE 92–149; RESP 18–29; O2SAT 92–98
--- NOTE | ~2021-11-07 | XR_ITS ---
XR chest 1V portable DATE: 11/07/2021 20:11 INDICATION: Dyspnea for 3 days. Left bundle-branch block. TECHNIQUE: Portable upright AP chest on 11/07/2021 at 2005 hours COMPARISON: 07/18/2021 portable AP chest FINDINGS: There is interval pulmonary vascular congestion and redistribution, prominence of the minor fissure, pulmonary interstitial prominence, consistent with pulmonary edema. Mild bilateral pleural effusions; the congestive changes are new since 07/18/2021. There is patchy infiltrate or atelectasis in the lower lung zones, primarily on the left. There is extensive thoracic aortic as well as some abdominal aortic calcification. IMPRESSION: New congestive changes and mild pleural effusions as well as bilateral infiltrate and/or atelectasis since 07/11/2021 Reviewed, dictated and finalized at location A. ITAL MANAGER IMPRESSION: New congestive changes and mild pleural effusions as well as bilate ral infiltrate and/or atelectasis since 07/11/2021
--- NOTE | ~2021-11-07 | XR_ITS ---
EXAMINATION: XR chest 1V portable DATE: 11/09/2021 01:08 INDICATION: Shortness of breath. Cough. TECHNIQUE: A single frontal view of the chest was obtained. COMPARISON: Chest single view 11/07/2021 FINDINGS: There is a diffuse interstitial pattern in the lungs. There are airspace opacities in the m id and lower lung zones, left worse than right. There is a small left pleural effusion. No pneumothor ax. The heart size is normal. An electronic device overlies left chest. IMPRESSION: 1. Worsened diffuse lung disease, likely a combination of pulmonary edema and pneumonia. 2. Stable small left pleural effusion. Reviewed, dictated and finalized at location A. CTOR CLINICAL RESEARCH IMPRESSION: 1. Worsened diffuse lung disease, likely a combination of pulmonary edema and p neumonia. 2. Stable small left pleural effusion.
--- NOTE | ~2021-11-07 | CT_ITS ---
EXAMINATION: CT chest abdomen pelvis wo con DATE: 11/12/2021 11:19 INDICATION: Unintentional weight loss. TECHNIQUE: Computed tomography (CT) of the chest, abdomen, and pelvis was performed without intraveno us contrast. Automated exposure control and iterative reconstruction technique were employed. The dos e-length product was 420.86 mGy-cm. COMPARISON: CT abdomen and pelvis 12/02/2020 FINDINGS: CHEST CT: The lungs demonstrate smooth septal thickening and peripheral groundglass opacities, consistent with pulmonary edema. A calcified right lung nodule is consistent with old granulomatous disease. There ar e small pleural effusions. There is dependent atelectasis bilaterally. Cardiomegaly is noted. There a re coronary artery calcifications. No pericardial effusion. There is a subcutaneous electronic implan t in anterior left chest. There is mild thoracic spondylosis. There are benign bone islands in T3 and T10 vertebral bodies. ABDOMEN/PELVIS CT: A calcification in the liver is consistent with old granulomatous disease. The gallbladder, spleen, p ancreas, and adrenal glands are normal. There is cortical thinning of the kidneys. The bladder is dec ompressed by a Galindo catheter. There is diverticulosis of the colon without evidence of diverticuliti s. There are no dilated loops of bowel. The appendix is not visualized. There are no pathologically e nlarged lymph nodes. There is no free intraperitoneal fluid. There is a left hip arthroplasty. There is mild lumbar spondylosis. IMPRESSION: 1. Mild pulmonary edema. 2. Small pleural effusions. Reviewed, dictated and finalized at location A. M COACH
--- NOTE | ~2021-11-07 | US_ITS ---
US venous doppler UE RT DATE: 11/16/2021 10:41 INDICATION: Right upper extremity pain, phlebitis TECHNIQUE: Real-time and color flow imaging and Doppler analysis COMPARISON: None FINDINGS: The right internal jugular, subclavian, axillary, brachial, basilic, cephalic, radial and u lnar veins are patent. There is a thrombosed superficial vein in the right forearm. IMPRESSION: No evidence of deep venous thrombosis of right upper extremity Superficial thrombosed right forearm pain Reviewed, dictated and finalized at Location A. Reviewed, dictated and finalized at location A. NSED PESTICIDE APPLICATOR
--- NOTE | 2021-11-07 19:53 | ECG_ITS ---
Measurements Intervals [place] Rate: 98 P: [place]: 0 QRS: 12 QRSD: 162 T: 139 QT: 409 QTc: 524 Interpretive Statements ATRIAL FLUTTER/TACHYCARDIA LEFT BUNDLE BRANCH BLOCK ABNORMAL ECG Electronically Signed On 11-08-2021 6:43:27 STRIPPER LATEX by Alessandro Tracy D.O.
--- NOTE | 2021-11-07 19:59 | ECG_ITS ---
Measurements Intervals [place] Rate: 143 P: ID: 0 QRS: 1 QRSD: 156 T: 148 QT: 326 QTc: 504 Interpretive Statements ATRIAL FLUTTER/TACHYCARDIA WITH RAPID VENTRICULAR RESPONSE LEFT BUNDLE BRANCH BLOCK ABNORMAL ECG Electronically Signed On 11-12-2021 13:44:46 MAINTENANCE MACHINE REPAIRER by Alessandro Tracy D.O.
--- NOTE | 2021-11-07 20:01 | ED.GENADULT ---
HPI - General Adult General Chief complaint: Shortness of Breath/Dyspnea Stated complaint: sob x 2 days Time Seen by Provider: 11/07/21 19:53 History of Present Illness HPI narrative: Patient 85-year-old female presents the emergency department with chief complaint of shortness of breath and chest tightness. The patient reports that she is at the facility where she has been a resident of and over the last 4 days has had increasing shortness of breath. Patient states that she has a tightness feeling in her chest reports that its not improved by anything and nor is it worsened by anything patient reports that she has noticed that her heart is beating somewhat fast patient reports that there is a tightness-like feeling reports that she has had some swelling in her legs but she has had this since she had a hip fracture and surgery. Patient denies fever denies chills denies blood in her stool Related Data Home Medications Medication Instructions Recorded Confirmed aspirin 81 mg tablet,delayed 81 mg PO DAILY 11/26/20 07/16/21 release glucosamine HCl 1,500 mg tablet 1,500 mg PO DAILY 11/26/20 07/16/21 Allergies Allergy/AdvReac Type Severity Reaction Status Date / Time penicillin G Allergy Unknown BP ISSUES Verified 07/15/21 22:32 MAYBE Sulfa (Sulfonamide Allergy Unknown BP ISSUES Verified 07/15/21 22:32 Antibiotics) MAYBE Review of Systems Review of Systems: A 10 system review of systems was completed on the patient and is negative except for what is stated in the HPI. Nursing and ancillary documentation was reviewed. 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 Aashish Bee. 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 They at age 80. Father Prostate carcinoma Mother Victim of tornado Social History Social History Social History: She resides at [facility]. She states that she has been there for approximately 7 years. She moved here from [place] to be DNR her son and [id number]. She used to work at a [employer]. She is a lifelong nonsmoker and does not drink alcohol. She has 3 children who are reportedly healthy. Primary care physician: Dr. Talon Mcgovern Code status: Full code Healthcare power of contracts attorney: Yosvany (son) and his . Smoking status: Never smoker Alcohol intake: never Substance use: never Gender identity (if verbalized by the patient): Female Spiritual care concerns: No Exam Narrative: GENERAL: Well-appearing, well-nourished, and in no acute distress. HEAD: Normocephalic, atraumatic. EYES: PERRLA and EOMI. ENT: Nares clear, no rhinorrhea or epistaxis. Mucous memb
[2021-11-07] MEDS: dilTIAZem HCl INJ 25 MG/5 ML VIAL 20 MG IV PUSH (20:43)
[2021-11-07 20:46] LABS: Basophils Percent Auto 0.6 % (0.2-1.2); Eosinophils Absolute Auto 0.1 K/mm3 (0-0.3); Eosinophils Percent Auto 1.7 % (0-4.4); Hematocrit 35.3 % (37.0-47.0); Hemoglobin 10.8 g/dL (12.0-15.0); Immature Granulocyte Absolute 0.01 K/mm3 (0.00-0.031); Immature Granulocyte Percent A 0.2 % (0-0.5); Lymphocytes Absolute Auto 1.47 K/mm3 (0.9-3.2); Lymphocytes Percent Auto 22.8 % (18.3-44.2); Mean Corpuscular HGB Conc 30.6 g/dl (32-36); Mean Corpuscular Hemoglobin 29.4 pg (26-34); Mean Corpuscular Volume 96.2 fl (80-100); Mean Platelet Volume 11.6 fl (7.4-10.4); Monocytes Absolute Auto 0.8 K/mm3 (0.1-0.6); Monocytes Percent Auto 12.6 % (2.6-8.5); Neutrophils Percent Auto 62.1 % (45.5-73.1); Platelet Count Result 165 k/mm3 (150-375); Red Blood Count 3.67 M/mm3 (4.2-5.4); Red Cell Distribution Width 13.8 % (11.5-14.5); White Blood Count 6.4 K/mm3 (4.5-10.0)
[2021-11-07 20:56] LABS: Lactic Acid Reflex 0.9 mmol/L (0.7-2.1)
[2021-11-07 20:59] LABS: Alanine Aminotransferase 15 U/L (4-35); Alkaline Phosphatase 72 U/L (38-126); Anion Gap 6 mmol/L (8-16); Aspartate Amino Transferase 30 U/L (14-36); Bilirubin,Total 0.2 mg/dL (0.2-1.3); Blood Urea Nitrogen 21 mg/dL (7-17); Calcium 9.2 mg/dL (8.4-10.2); Carbon Dioxide 30 mmol/L (22-30); Chloride 100 mmol/L (98-107); Estimated CRCL calculation 61 ml/min; Estimated Glomerular Filt Rate 53; Glucose 142 mg/dL (65-110); Partial Thromboplastin Time 28.6 SECONDS (22.3-36.8); Potassium 4.1 mmol/L (3.4-5.0); Sodium 136 mmol/L (137-145)
[2021-11-07 20:59] LABS: Alveolar/Arterial O2 Gradient 113.3 mmHg; Base Excess ABG 3.7 mEq/l (+/-2.0); Fractional Inspired Oxygen 32 %; HCO3 ABG 28.1 mEq/l (22.0-26.0); Oxygen Content ABG 14.2 %vol (16.0-22.0); Oxygen Saturation ABG 93.7 % (95.0-100.0); Oxyhemoglobin 91.4 % THb (90.0-100.0); PCO2 ABG 41.9 mmHg (35.0-45.0); PO2 ABG 65.8 mmHg (80.0-100.0); PO2 FiO2 Ratio Arterial Blood 2.06 %; pH ABG 7.445 (7.350-7.450)
[2021-11-07 21:00] LABS: Device NASAL CANNULA; Modified Allen's Test Pass; Site Drawn LEFT RADIAL
[2021-11-07 21:13] LABS: NT Pro B Type Natriuretic Pept 4490 pg/mL (5-100); Troponin I 0.036 ng/mL (0.000-0.034)
[2021-11-07] MEDS: dilTIAZem 100 MG/100 ML 100 MG/100 ML BAG IV CONT (21:27)
[2021-11-07] MEDS: dilTIAZem HCl INJ 25 MG/5 ML VIAL 10 MG IV PUSH (23:02)
[2021-11-08] VITALS (115 sets, daily range): BP systolic 110–148; BP diastolic 41–99; PULSE 52–147; RESP 15–36; TEMP 36.1; O2SAT 87–100; BMI 23.8
--- NOTE | 2021-11-08 | ECHO_ITS ---
Patient Info Name: Qian Cheek Age: 85 years : 1935 Gender: Female Ht: 71 in Wt: 146 lbs BSA: 1.81 m2 HR: 85 bpm BP: 131 / 52 mmHg Heart Rhythm: Atrial Fibrillation Technical Quality: Fair Exam Date: 11/08/2021 12:06 PM Exam Location: [facility] Pulmonary Exam Room: ED B 1 Patient Status: Inpatient Admit Date: 11/07/2021 Staff Ordering Physician: Jose Chakraborty MD Roll Setter: Sybil Arteaga RDCS Attending Provider: Jose Chakraborty MD Exam Type: CA echo doppler color flow Study Info Indications - chf chest tightness elevated troponins Complete two-dimensional, color flow and Doppler transthoracic echocardiogram is performed. Summary 1. Complete two-dimensional, color flow and Doppler transthoracic echocardiogram is performed. 2. Normal left ventricular size with mild concentric hypertrophy. Severe hypokinesis of the anterolateral and anteroseptal areas with akinesis of the apex. Ejection fraction visually is 30-35%. Diastolic dysfunction is present. 3. Left atrial chamber dimension is severely enlarged. 4. Right atrial chamber dimension is moderately enlarged. 5. Right ventricular chamber dimension is mildly enlarged with normal systolic function. 6. There is moderate mitral valve regurgitation. 7. There is mild tricuspid valve regurgitation. 8. Mild pulmonary hypertension, estimated pulmonary arterial systolic pressure is 41 mmHg. 9. Dilated inferior vena cava with <50% collapse upon inspiration consistent with significantly elevated right atrial pressure, 10 mmHg. 10. Left pleural effusion. 11. Atrial fibrillation with a bundle branch block pattern. Left Ventricle Left ventricular chamber dimension is normal. Left ventricular systolic function is normal, estimated at 30-35%. There is mildly increased left ventricular wall thickness. Left ventricular septal wall motion is normal. The left ventricular diastolic function is abnormal. Right Ventricle Right ventricular chamber dimension is mildly enlarged with normal systolic function. Right ventricular systolic function is normal. Left Atria Left atrial chamber dimension is severely enlarged. Right Atria Right atrial chamber dimension is moderately enlarged. Aortic Valve The aortic valve is trileaflet. There is mild aortic valve sclerosis. There is no aortic valve stenosis. There is no aortic valve regurgitation. Pulmonic Valve The pulmonic valve is normal. There is no pulmonic valve stenosis. There is no pulmonic regurgitation. Mitral Valve The mitral valve has thickened leaflets. There is no mitral valve stenosis. There is moderate mitral valve regurgitation. Tricuspid Valve The tricuspid valve leaflets are normal. There is no significant tricuspid valve stenosis. There is mild tricuspid valve regurgitation. Mild pulmonary hypertension, estimated pulmonary arterial systolic pressure is 41 mmHg. Pericardium/Pleural The pericardium appears normal. There is no pericardial effusion. Inferior Vena Cava Dilated inferior vena cava with <50% collapse upon inspiration consistent with significantly elevated right atrial pressure, 10 mmHg. Aorta The aortic root size at the sinus of Valsalva is normal. The prox ascending aorta size is normal. Left Ventricular Outflow Tract Name Value Normal
[2021-11-08 00:06] LABS: RBC Urine 0-2 /hpf (0-2); Squamous Epithelial Cell Urine Rare /hpf (Few)
[2021-11-08 00:12] LABS: Add Urine Microscopic? NO; Appearance Urine Clear (Clear); Bilirubin Urine Negative (Negative); Blood Urine Negative (Negative); Color Urine Yellow (Yellow); Glucose Urine UA Negative (Negative); Ketones Urine Negative (Negative); Leukocyte Esterase Ur Negative LEU/UL (Negative); Nitrate Urine Negative (Negative); Protein Urine Negative (Negative); Specific Grav Ur 1.028 (1.001-1.035); Urobilinogen Urine Negative mg/dL (<2.0)
[2021-11-08 00:33] LABS: Troponin I 0.042 ng/mL (0.000-0.034)
--- NOTE | 2021-11-08 00:54 | PM.IMHP ---
H&P: HPI History of Present Illness Date/Time: 11/08/21 00:54 Chief Complaint: Shortness of breath Narrative: Patient 85-year-old female presents the emergency department with chief complaint of shortness of breath and chest tightness over the past few days. She states she is in nursing facility since her discharge from her hip fracture and surgery back in June. Elham has been progressing very slowly as she states she is not able to tolerate therapy as much because of her breathing issues that she has been having. She states that whenever she goes for therapy are her heart rate runs fast and she is not able to tolerate it. She still is not ambulatory and able to do transfers at most. She denies any fever or chills. Earlier today she was started to have some chest tightness in upper chest. Which is resolved now. She denies any bleeding issues. Review of Systems Review of Systems: - CONSTITUTIONAL: Denies weight loss, fever and chills. - HEENT: Denies changes in vision and hearing - RESPIRATORY: Reports SOB and denies cough. - CV: Denies palpitations and reports CP. - GI: Denies abdominal pain, nausea, vomiting and diarrhea. - : Denies dysuria and urinary frequency. - MSK: Denies myalgia and joint pain. - SKIN: Denies rash and pruritus. - NEUROLOGICAL: Denies headache and syncope. - PSYCHIATRIC: Denies recent changes in mood. Denies anxiety and depression. 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 Aashish Bee. 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 They at age 80. Father Prostate carcinoma Mother Victim of tornado Social History Social History Social History: She resides at [facility]. She states that she has been there for approximately 7 years. She moved here from [place] to be DNR her son and [id number]. She used to work at a [employer]. She is a lifelong nonsmoker and does not drink alcohol. She has 3 children who are reportedly healthy. Primary care physician: Dr. Talon Mcgovern Code status: Full code Healthcare power of energy attorney: Yosvany (son) and his . Smoking status: Never smoker Alcohol intake: never Substance use: never Gender identity (if verbalized by the patient): Female Spiritual care concerns: No Meds Home Medications and Allergies Home Medications Medication Instructions Recorded Confirmed Type aspirin 81 mg tablet,delayed 81 mg PO
--- NOTE | 2021-11-08 01:46 | PC.NURSE ---
call made to pharmacy, left message to notify that the wt based lovenox dose dosed incorrectly due to wt not being in correctly.
[2021-11-08] MEDS: ENOXAPARIN 80 MG/0.8 ML SYRINGE 73 MG SUB-Q ×3 (03:06→20:33)
[2021-11-08] MEDS: dilTIAZem 100 MG/100 ML 100 MG/100 ML BAG 15 MG IV CONT ×2 (04:14→19:59)
[2021-11-08 05:21] LABS: Troponin I 0.042 ng/mL (0.000-0.034)
[2021-11-08 07:11] LABS: Free T4 Free Thyroxine 1.08 ng/mL (0.78-2.19)
[2021-11-08] MEDS: LEVOTHYROXINE SODIUM 125 MCG TABLET PO (07:45)
[2021-11-08] MEDS: METOPROLOL TARTRATE 12.5 MG TABLET PO (07:45)
--- NOTE | 2021-11-08 08:57 | PC.NURSE ---
Heart rate down to the 80's. ECHO notified.
[2021-11-08] MEDS: FAMOTIDINE 20 MG TABLET 40 MG PO (09:22)
[2021-11-08] MEDS: ASPIRIN 81 MG ENTERIC TABLET PO (09:23)
[2021-11-08] MEDS: EZETIMIBE 10 MG TABLET PO (09:25)
[2021-11-08] MEDS: lisinopriL 20 MG TABLET 40 MG PO (09:26)
[2021-11-08] MEDS: MEMANTINE 10 MG TABLET PO ×2 (09:26→20:35)
[2021-11-08] MEDS: MIRABEGRON 50 MG ER TABLET PO (09:26)
[2021-11-08] MEDS: FERROUS SULFATE 324 MG TABLET PO (09:27)
[2021-11-08] MEDS: DULoxetine HCL 60 MG CAPSULE.DR PO (09:27)
[2021-11-08] MEDS: FUROSEMIDE INJ 40 MG/4 ML VIAL IV PUSH ×2 (09:28→20:34)
[2021-11-08] MEDS: POTASSIUM CHLORIDE 20 MEQ TABLET.ER PO (09:28)
--- NOTE | 2021-11-08 10:15 | P.PNIM_ITS ---
Progress Note: A&P Assessment and Plan (1) Atrial flutter with rapid ventricular response: Code(s): I48.92 - Unspecified atrial flutter Status: Acute Assessment and Plan: * atrial fibrillation with rapid ventricular rate on EKG * Cardizem drip started. * Cardiology consultation thank you for your help * TSH is high * K is 4.2, Mg 1.9 * No prior history of atrial fibrillation * Lovenox for anticoagulation * add metoprolol 12.5mg PO BID * HR seems to be better controlled (2) Acute dyspnea: Code(s): R06.00 - Dyspnea, unspecified Status: Acute Assessment and Plan: * SOB related to AFIB RVR * Supplemental oxygen * Wean to maintain saturations (3) Hypothyroid: Code(s): E03.9 - Hypothyroidism, unspecified Status: Acute Assessment and Plan: * TSH 23.100 * levothyroxine probably needs to be increased * might not be absorbed well due to ongoing CHF? * repeat as an outpatient basis * check T3-T4 (4) Left bundle branch block: Code(s): I44.7 - Left bundle-branch block, unspecified Status: Acute Assessment and Plan: * seen in the EKG * cardiology consulted * tele monitor * trend (5) Dementia: Code(s): F03.90 - Unspecified dementia without behavioral disturbance Status: Acute Assessment and Plan: * continue home medications (6) COPD (chronic obstructive pulmonary disease): Qualifiers: COPD type: unspecified COPD Qualified Code(s): J44.9 - Chronic obstructive pulmonary disease, unspecified Code(s): J44.9 - Chronic obstructive pulmonary disease, unspecified Status: Acute Assessment and Plan: * continue home medications * breathing treatments * supplemental oxygen (7) KAYLA on CPAP: Code(s): G47.33 - Obstructive sleep apnea (adult) (pediatric); Z99.89 - Dependence on other enabling machines and devices Status: Acute Assessment and Plan: * continue home settings (8) Essential hypertension: Code(s): I10 - Essential (primary) hypertension Status: Acute Assessment and Plan: * current blood pressure is stable at 113/55 * continue home medications * trend blood pressure * adjust as indicated (9) Mixed hyperlipidemia: Code(s): E78.2 - Mixed hyperlipidemia Status: Acute Assessment and Plan: * continue medications (10) Acute and chronic respiratory failure: Code(s): J96.20 - Acute and chronic respiratory failure, unspecified whether with hypoxia or hypercapnia Status: Acute Assessment and Plan: * saturations low prior to being brought in * saturation documented of 80% at 11:30 a.m. this morning * supplemental oxygen * titrate oxygen to maintain a saturation greater than 92% (11) Acute on chronic congestive heart failure: Code(s): I50.9 - Heart failure, unspecified Status: Acute Assessment and Plan: * acute exacerbation of diastolic heart failure * could be due to newly diagnosed atrial fibrillation * Lasix IV x1 given will continue diuresis with Lasix 40 mg IV b.i.d. * echocardiogram ordered * last echo with ejection fraction 65-70% grade 2 diastolic dysfunction no significant valvular disease (07/12) * trend output * daily weights
--- NOTE | 2021-11-08 10:15 | PM.IMPN ---
Progress Note: A&P Assessment and Plan (1) Atrial flutter with rapid ventricular response: Code(s): I48.92 - Unspecified atrial flutter Status: Acute Assessment and Plan: atrial fibrillation with rapid ventricular rate on EKG Cardizem drip started. Cardiology consultation thank you for your help TSH is high K is 4.2, Mg 1.9 No prior history of atrial fibrillation Lovenox for anticoagulation add metoprolol 12.5mg PO BID HR seems to be better controlled (2) Acute dyspnea: Code(s): R06.00 - Dyspnea, unspecified Status: Acute Assessment and Plan: SOB related to AFIB RVR Supplemental oxygen Wean to maintain saturations (3) Hypothyroid: Code(s): E03.9 - Hypothyroidism, unspecified Status: Acute Assessment and Plan: TSH 23.100 levothyroxine probably needs to be increased might not be absorbed well due to ongoing CHF? repeat as an outpatient basis check T3-T4 (4) Left bundle branch block: Code(s): I44.7 - Left bundle-branch block, unspecified Status: Acute Assessment and Plan: seen in the EKG cardiology consulted tele monitor trend (5) Dementia: Code(s): F03.90 - Unspecified dementia without behavioral disturbance Status: Acute Assessment and Plan: continue home medications (6) COPD (chronic obstructive pulmonary disease): Qualifiers: COPD type: unspecified COPD Qualified Code(s): J44.9 - Chronic obstructive pulmonary disease, unspecified Code(s): J44.9 - Chronic obstructive pulmonary disease, unspecified Status: Acute Assessment and Plan: continue home medications breathing treatments supplemental oxygen (7) KAYLA on CPAP: Code(s): G47.33 - Obstructive sleep apnea (adult) (pediatric); Z99.89 - Dependence on other enabling machines and devices Status: Acute Assessment and Plan: continue home settings (8) Essential hypertension: Code(s): I10 - Essential (primary) hypertension Status: Acute Assessment and Plan: current blood pressure is stable at 113/55 continue home medications trend blood pressure adjust as indicated (9) Mixed hyperlipidemia: Code(s): E78.2 - Mixed hyperlipidemia Status: Acute Assessment and Plan: continue medications (10) Acute and chronic respiratory failure: Code(s): J96.20 - Acute and chronic respiratory failure, unspecified whether with hypoxia or hypercapnia Status: Acute Assessment and Plan: saturations low prior to being brought in saturation documented of 80% at 11:30 a.m. this morning supplemental oxygen titrate oxygen to maintain a saturation greater than 92% (11) Acute on chronic congestive heart failure: Code(s): I50.9 - Heart failure, unspecified Status: Acute Assessment and Plan: acute exacerbation of diastolic heart failure could be due to newly diagnosed atrial fibrillation Lasix IV x1 given will continue diuresis with Lasix 40 mg IV b.i.d. echocardiogram ordered last echo with ejection fraction 65-70% grade 2 diastolic dysfunction no significant valvular disease (07/12) trend output daily weights Time Spent With Patient Time with patient: Greater than 35 minutes Subjective Date/time seen: 11/08/21 1015 Interval history: Date/Time: 11/08/21 00:54 Chief Complaint: Shortness of breath Narrative: Patient 85-year-old female presents the emergency department with chief complaint of shortness of breath and chest tightness over the past few days. She states she is in nursing facility since her discharge from her hip fracture and surgery back in June. Elham has been progressing very slowly as she states she is not able to tolerate therapy as much because of her breathing issues that she has been
[2021-11-08 10:47] LABS: Basophils Absolute Auto 0.1 K/mm3 (0.0-0.1); Basophils Percent Auto 0.9 % (0.2-1.2); Eosinophils Absolute Auto 0.1 K/mm3 (0-0.3); Eosinophils Percent Auto 1.8 % (0-4.4); Immature Granulocyte Absolute 0.02 K/mm3 (0.00-0.031); Immature Granulocyte Percent A 0.3 % (0-0.5); Lymphocytes Absolute Auto 1.17 K/mm3 (0.9-3.2); Lymphocytes Percent Auto 16.6 % (18.3-44.2); Mean Corpuscular HGB Conc 29.7 g/dl (32-36); Mean Corpuscular Volume 97.6 fl (80-100); Mean Platelet Volume 11.5 fl (7.4-10.4); Monocytes Absolute Auto 0.9 K/mm3 (0.1-0.6); Monocytes Percent Auto 12.1 % (2.6-8.5); Neutrophils Absolute Auto 4.8 K/mm3 (1.3-6.7); Neutrophils Percent Auto 68.3 % (45.5-73.1); Platelet Count Result 185 k/mm3 (150-375); Red Blood Count 3.79 M/mm3 (4.2-5.4); Red Cell Distribution Width 14.1 % (11.5-14.5)
[2021-11-08] MEDS: dilTIAZem 100 MG/100 ML 100 MG/100 ML BAG 10 MG IV CONT (10:58)
[2021-11-08 11:01] LABS: Alanine Aminotransferase 15 U/L (4-35); Alkaline Phosphatase 75 U/L (38-126); Anion Gap 5 mmol/L (8-16); Aspartate Amino Transferase 28 U/L (14-36); Bilirubin,Total 0.4 mg/dL (0.2-1.3); Blood Urea Nitrogen 21 mg/dL (7-17); Calcium 9.1 mg/dL (8.4-10.2); Carbon Dioxide 35 mmol/L (22-30); Chloride 98 mmol/L (98-107); Estimated CRCL calculation 36 ml/min; Estimated Glomerular Filt Rate 47; Glucose 163 mg/dL (65-110); Magnesium 1.9 mg/dL (1.6-2.3); Potassium 4.2 mmol/L (3.4-5.0); Sodium 138 mmol/L (137-145)
--- NOTE | 2021-11-08 11:44 | PC.NURSE ---
02 increased to 3l NC. 02 sats were 87% on 1l. Daughter states pt uses 3 l all the time at home.
--- NOTE | 2021-11-08 12:01 | PCPTNOTE ---
Per nursing, pt is being admitted to a room. Will perform PT/OT assessment once transfers to the floors.
--- NOTE | 2021-11-08 12:07 | PCOTNOTE ---
Per nursing, patient is being admitted to a room. Will perform PT/OT assessment once transfers to the floors.
--- NOTE | 2021-11-08 14:27 | PM.CNCAR ---
Assessment and Plan Assessment and plan (1) Atrial flutter with rapid ventricular response: Code(s): I48.92 - Unspecified atrial flutter Status: Acute Assessment and Plan: New onset of atrial flutter RVR, probably related to age, hypertension, cardiomyopathy etc.. TSH is high rather than low. Heart rate improved w/ Cardizem gtt 10 mg/hr and the addition of metoprolol 12.5 mg BID. Rate control and anticoagulation strategy. Will incr metop to 25 mg BID and DC cardizem gtt CHADS2-VASC score 5, at high risk of CVA. Pt's fall risk is low since she is WC-bound. Discussed risk of CVA and anticoagulation w/ pt and [id number]. Rec the addition of Xarelto 15 mg q pm. DC ASA and Lovenox. (2) Acute systolic (congestive) heart failure: Code(s): I50.21 - Acute systolic (congestive) heart failure Status: Acute Assessment and Plan: Acute CHF with a left pleural effusion. Unclear if this is the result of her a flutter RVR or the cause of her atrial flutter RVR--more likely the former as her EF was normal in June. Agree w/ furosemide 40 mg IVP BID. Agree w/ lisinopril. Daily BMP (3) Cardiomyopathy: Code(s): I42.9 - Cardiomyopathy, unspecified Status: Acute Assessment and Plan: New cardiomyopathy most likely 2nd a flutter RVR. Could be 2nd to LBBB, but her decline has been abrupt so unlikely. She has segmental wall motion abnormalities and chest tightness which suggests CAD but Troponins are flat however, so no evidence of STEMI or ACS, though may have some CAD and ischemia related to heart rate. Treat w/ BB, ACEI, diuretics. (I think her LV fxn will improve w/ HR control, so did not use Entresto.) (4) Left bundle branch block: Code(s): I44.7 - Left bundle-branch block, unspecified Status: Acute Assessment and Plan: Chronic left bundle-branch block. (5) Essential hypertension: Code(s): I10 - Essential (primary) hypertension Status: Acute Assessment and Plan: Hypertension with blood pressure at goal. History of Present Illness History of Present Illness Consult date/time: 11/08/21 14:27 Reason For Visit: Atrial Flutter with RVR, dyspnea Narrative: Qian Wei is an 85-year-old female whom I was asked to see at the request of the hospitalist for my advice and opinion regarding her new onset of atrial flutter RVR, in consultation. 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 She lives at an independent living at [facility]. The patient has had more trouble with her COPD in the last 6 months and is on home oxygen. The last 3 weeks she has had fast heartbeats and worsening shortness of breath. In the last 3 days she has had significant increase in her SOB, chest tightness, as well as PND, orthopnea and with some increased edema. She came to the emergency room last night with [id number] Charline and was found to be in new onset atrial flutter with a rapid ventricular response and started on Cardizem at 15 milligrams/hour. Subsequently metoprolol has been added and the Cardizem drip is down to 10 milligrams/hour. Troponins are elevated but flat. The patient was previously seen by us in June 2021 weaned she had fallen and need preoperative clearance for ORIF. 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 She has longstanding chronic chest pain with a negative stress test 3 years ago. Preserved ejection fraction. She did not have any cardiac complications with the ORIF. Used to fall a lot but now is WC-bound and has had no recent falls. Review of Systems Constitutional: Constitutional: Reports fatigue, Reports lethargy and Reports weakness Eyes: Eyes: Reports no additional eye complain
--- NOTE | 2021-11-08 17:46 | PC.NURSE ---
Pt c/o dyspnea. HR 140 on the monitor. [address] at 4l NC.
[2021-11-08] MEDS: dilTIAZem HCl INJ 25 MG/5 ML VIAL 10 MG IV PUSH (18:15)
[2021-11-08] MEDS: METOPROLOL TARTRATE 25 MG TABLET PO (20:34)
[2021-11-08] MEDS: ATORVASTATIN 40 MG TABLET PO (20:35)
[2021-11-08] MEDS: DONEPEZIL HCL 10 MG TABLET PO (20:35)
--- NOTE | 2021-11-08 22:25 | ADMGEN ---
This patient, Qian Cheek, was admitted to IMU Room 214-01. Patient/family oriented to hospital policies and general routines including ID bracelet, bed and alarms, visiting hours, pain management, procedures, bathroom and other care routines, personal items, smoking policy, room service/diet, and visiting hours. Information on how to activate the Rapid Response Team has been discussed. Patient/Family are encouraged to report perceived risks to care and to ask questions if they do not understand what they are told or what they should do.
[2021-11-09] VITALS (23 sets, daily range): BP systolic 137–146; BP diastolic 48–61; PULSE 62–86; RESP 18–30; TEMP 36–36.7; O2SAT 81–100
[2021-11-09] MEDS: LEVALBUTEROL NEB 1.25 MG/3 ML 0.63 MG INHALATION (01:13)
[2021-11-09] MEDS: dilTIAZem 100 MG/100 ML 100 MG/100 ML BAG 15 MG IV CONT (02:36)
[2021-11-09] MEDS: FUROSEMIDE INJ 40 MG/4 ML VIAL IV PUSH ×3 (02:37→20:49)
[2021-11-09 05:42] LABS: Basophils Percent Auto 0.4 % (0.2-1.2); Hemoglobin 10.8 g/dL (12.0-15.0); Immature Granulocyte Absolute 0.05 K/mm3 (0.00-0.031); Immature Granulocyte Percent A 0.5 % (0-0.5); Lymphocytes Percent Auto 8.2 % (18.3-44.2); Mean Corpuscular Volume 96.8 fl (80-100); Monocytes Absolute Auto 0.6 K/mm3 (0.1-0.6); Monocytes Percent Auto 6.3 % (2.6-8.5); Neutrophils Absolute Auto 8.3 K/mm3 (1.3-6.7); Neutrophils Percent Auto 84.6 % (45.5-73.1); Platelet Count Result 187 k/mm3 (150-375); Red Blood Count 3.72 M/mm3 (4.2-5.4); Red Cell Distribution Width 14.1 % (11.5-14.5); White Blood Count 9.8 K/mm3 (4.5-10.0)
[2021-11-09] MEDS: LEVOTHYROXINE SODIUM 125 MCG TABLET PO (05:43)
[2021-11-09 05:49] LABS: Alanine Aminotransferase 14 U/L (4-35); Albumin Level 4.4 g/dL (3.5-5.1); Alkaline Phosphatase 84 U/L (38-126); Anion Gap 6 mmol/L (8-16); Aspartate Amino Transferase 29 U/L (14-36); Bilirubin,Total 0.5 mg/dL (0.2-1.3); Blood Urea Nitrogen 22 mg/dL (7-17); Calcium 9.1 mg/dL (8.4-10.2); Carbon Dioxide 33 mmol/L (22-30); Chloride 95 mmol/L (98-107); Estimated CRCL calculation 36 ml/min; Estimated Glomerular Filt Rate 47; Glucose 145 mg/dL (65-110); Magnesium 1.8 mg/dL (1.6-2.3); Potassium 3.7 mmol/L (3.4-5.0); Sodium 134 mmol/L (137-145)
--- NOTE | 2021-11-09 06:45 | P.PNIM_ITS ---
Progress Note: A&P Assessment and Plan (1) Acute on chronic congestive heart failure: Code(s): I50.9 - Heart failure, unspecified Status: Acute Assessment and Plan: * acute exacerbation of combined systolic and diastolic heart failure * Chest Xray new congestive changes, pleural effusions, bilateral infiltrates * could be due to newly diagnosed atrial fibrillation * Lasix IV x1 given will continue diuresis with Lasix 40 mg IV b.i.d. * echocardiogram EF is 30-35% with diastolic dysfunction, Severe hypokinesis of the anterolateral and anteroseptal areas with akinesis of the apex. Which is a significant decline since June ejection fraction 65-70% grade 2 diastolic dysfunction no significant valvular disease * trend output * daily weights * Urinary catheter for strict I&Os (2) Acute and chronic respiratory failure: Code(s): J96.20 - Acute and chronic respiratory failure, unspecified whether with hypoxia or hypercapnia Status: Acute Assessment and Plan: * Worsening today as O2 demand is much greater today * saturations low prior to being brought in * saturation documented of 80% at 11:30 a.m. this morning * supplemental oxygen * titrate oxygen to maintain a saturation greater than 92% (3) Atrial flutter with rapid ventricular response: Code(s): I48.92 - Unspecified atrial flutter Status: Acute Assessment and Plan: * atrial fibrillation with rapid ventricular rate on EKG * Cardizem drip started and continued at 15ml/hr * Cardiology consultation thank you for your help * TSH is high * K is 3.7, Mg 1.8 * No prior history of atrial fibrillation * Lovenox for anticoagulation * add metoprolol 12.5mg PO BID * HR seems to be better controlled in the 70-80s (4) Cardiomyopathy: Code(s): I42.9 - Cardiomyopathy, unspecified Status: Acute Assessment and Plan: * New found problem * Cardiology managing * Metoprolol 25mg PO Q12, lisinopril 40mg PO Qam, and furosemide 40mg IV Q12hr * Trend output * Trend BP (5) Acute dyspnea: Code(s): R06.00 - Dyspnea, unspecified Status: Acute Assessment and Plan: * SOB related to AFIB RVR * Supplemental oxygen 7L high flow cannula * Wean to maintain saturations (6) Hypothyroid: Code(s): E03.9 - Hypothyroidism, unspecified Status: Acute Assessment and Plan: * TSH 23.100 * levothyroxine probably needs to be increased * might not be absorbed well due to ongoing CHF? * repeat as an outpatient basis * T3 pending-T4 1.08 (7) Left bundle branch block: Code(s): I44.7 - Left bundle-branch block, unspecified Status: Acute Assessment and Plan: * seen in the EKG * cardiology consulted * tele monitor * trend (8) Dementia: Code(s): F03.90 - Unspecified dementia without behavioral disturbance Status: Acute Assessment and Plan: * continue home medications (9) COPD (chronic obstructive pulmonary disease): Qualifiers: COPD type: unspecified COPD Qualified Code(s): J44.9 - Chronic obstructive pulmonary disease, unspecified Code(s): J44.9 - Chronic obstructive pulmonary disease, unspecified Status: Acute Assessment and Plan: * continue home medications * breathing treatments * supplemental oxygen
--- NOTE | 2021-11-09 06:45 | PM.IMPN ---
Progress Note: A&P Assessment and Plan (1) Acute on chronic congestive heart failure: Code(s): I50.9 - Heart failure, unspecified Status: Acute Assessment and Plan: acute exacerbation of combined systolic and diastolic heart failure Chest Xray new congestive changes, pleural effusions, bilateral infiltrates could be due to newly diagnosed atrial fibrillation Lasix IV x1 given will continue diuresis with Lasix 40 mg IV b.i.d. echocardiogram EF is 30-35% with diastolic dysfunction, Severe hypokinesis of the anterolateral and anteroseptal areas with akinesis of the apex. Which is a significant decline since June ejection fraction 65-70% grade 2 diastolic dysfunction no significant valvular disease trend output daily weights Urinary catheter for strict I&Os (2) Acute and chronic respiratory failure: Code(s): J96.20 - Acute and chronic respiratory failure, unspecified whether with hypoxia or hypercapnia Status: Acute Assessment and Plan: Worsening today as O2 demand is much greater today saturations low prior to being brought in saturation documented of 80% at 11:30 a.m. this morning supplemental oxygen titrate oxygen to maintain a saturation greater than 92% (3) Atrial flutter with rapid ventricular response: Code(s): I48.92 - Unspecified atrial flutter Status: Acute Assessment and Plan: atrial fibrillation with rapid ventricular rate on EKG Cardizem drip started and continued at 15ml/hr Cardiology consultation thank you for your help TSH is high K is 3.7, Mg 1.8 No prior history of atrial fibrillation Lovenox for anticoagulation add metoprolol 12.5mg PO BID HR seems to be better controlled in the 70-80s (4) Cardiomyopathy: Code(s): I42.9 - Cardiomyopathy, unspecified Status: Acute Assessment and Plan: New found problem Cardiology managing Metoprolol 25mg PO Q12, lisinopril 40mg PO Qam, and furosemide 40mg IV Q12hr Trend output Trend BP (5) Acute dyspnea: Code(s): R06.00 - Dyspnea, unspecified Status: Acute Assessment and Plan: SOB related to AFIB RVR Supplemental oxygen 7L high flow cannula Wean to maintain saturations (6) Hypothyroid: Code(s): E03.9 - Hypothyroidism, unspecified Status: Acute Assessment and Plan: TSH 23.100 levothyroxine probably needs to be increased might not be absorbed well due to ongoing CHF? repeat as an outpatient basis T3 pending-T4 1.08 (7) Left bundle branch block: Code(s): I44.7 - Left bundle-branch block, unspecified Status: Acute Assessment and Plan: seen in the EKG cardiology consulted tele monitor trend (8) Dementia: Code(s): F03.90 - Unspecified dementia without behavioral disturbance Status: Acute Assessment and Plan: continue home medications (9) COPD (chronic obstructive pulmonary disease): Qualifiers: COPD type: unspecified COPD Qualified Code(s): J44.9 - Chronic obstructive pulmonary disease, unspecified Code(s): J44.9 - Chronic obstructive pulmonary disease, unspecified Status: Acute Assessment and Plan: continue home medications breathing treatments supplemental oxygen (10) KAYLA on CPAP: Code(s): G47.33 - Obstructive sleep apnea (adult) (pediatric); Z99.89 - Dependence on other enabling machines and devices Status: Acute Assessment and Plan: continue home settings (11) Essential hypertension: Code(s): I10 - Essential (primary) hypertension Status: Acute Assessment and Plan: current blood pressure is stable at 146/49 continue home medications trend blood pressure adjust as indicated (12) Mixed hyperlipidemia: Code(s): E78.2 - Mixed hyperlipidemia Statu
--- NOTE | 2021-11-09 07:35 | PCOTNOTE ---
Attempted OT evaluation, per RN clementina betancur prior to completing OT evaluation, will follow and attempt at later time.
[2021-11-09] MEDS: EZETIMIBE 10 MG TABLET PO (08:35)
[2021-11-09] MEDS: POTASSIUM CHLORIDE 20 MEQ TABLET.ER PO (08:35)
[2021-11-09] MEDS: MIRABEGRON 50 MG ER TABLET PO (08:35)
[2021-11-09] MEDS: DULoxetine HCL 60 MG CAPSULE.DR PO (08:35)
[2021-11-09] MEDS: lisinopriL 20 MG TABLET 40 MG PO (08:35)
[2021-11-09] MEDS: MEMANTINE 10 MG TABLET PO ×2 (08:35→20:49)
[2021-11-09] MEDS: METOPROLOL TARTRATE 25 MG TABLET PO ×2 (08:35→20:49)
[2021-11-09] MEDS: FERROUS SULFATE 324 MG TABLET PO ×2 (08:36→17:56)
--- NOTE | 2021-11-09 12:54 | PM.PNCARD ---
Progress Note: A&P Assessment and Plan (1) Atrial flutter with rapid ventricular response: Code(s): I48.92 - Unspecified atrial flutter Status: Acute Assessment and Plan: New onset of atrial flutter RVR, probably related to age, hypertension, cardiomyopathy etc. TSH is high rather than low. Rate control and anticoagulation strategy. Converted to NSR Added metop to 25 mg BID on admission CHADS2-VASC score 5, at high risk of CVA. Pt's fall risk is low since she is WC-bound. Started Xarelto 15 mg q pm. Follow on Telemetry (2) Acute systolic (congestive) heart failure: Code(s): I50.21 - Acute systolic (congestive) heart failure Status: Acute Assessment and Plan: Acute CHF with a left pleural effusion. EF 30-35%. Unclear if this is the result of her a flutter RVR or the cause of her atrial flutter RVR--more likely the former as her EF was normal in June and hopefully the EF will improve w/ HR control. Feeling better and diruesing though CXR this a.m. still shows CHF/pleural effusions. Cont furosemide 40 mg IVP BID, prob for a couple more days. Cont metoprolol and lisinopril. Daily BMP (3) Cardiomyopathy: Code(s): I42.9 - Cardiomyopathy, unspecified Status: Acute Assessment and Plan: New cardiomyopathy most likely 2nd a flutter RVR. Could be 2nd to LBBB, but her decline has been abrupt so unlikely. She has segmental wall motion abnormalities and chest tightness which suggests CAD but Troponins are flat however, so no evidence of STEMI or ACS, though may have some CAD and ischemia related to heart rate. Treat w/ BB, ACEI, diuretics. (I think her LV fxn will improve w/ HR control, so did not use Entresto.) (4) Left bundle branch block: Code(s): I44.7 - Left bundle-branch block, unspecified Status: Acute Assessment and Plan: Chronic left bundle-branch block. (5) Essential hypertension: Code(s): I10 - Essential (primary) hypertension Status: Acute Assessment and Plan: Hypertension with blood pressure at goal. (6) Weakness: Code(s): R53.1 - Weakness Status: Acute Assessment and Plan: Pt WC bound since hip fx, poor endurance 2nd COPD and now CHF. Daughter would like another Ph Tx eval; has run out of Medicare benefits from hip fx. Further disposition re: home services per hospitalist. Subjective Date/time seen: 11/09/21 12:54 Interval history: Follow-up new onset atrial flutter RVR, new onset CHF and cardiomyopathy. Echo this admission showed a decline in LV function, EF now 30-35% with segmental wall motion abnormalities and moderate mitral regurgitation. 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 Date of service 11/09/2021: Yesterday pt converted to NSR. I increased her metoprolol to 25 mg b.i.d., discontinued her Cardizem drip, and we continued her GERRY-inhibitor as well as started in IV furosemide. Today heart rate is 60s to 80s. She is on 6 L of oxygen. Breathing better. Galindo placed, good diuresis. Abdominal distension improved. Daughter was asking the opinion of pt's RN and me about Hospice as apparently Marixa Hortencia had suggested it. In my opinion, she does not appear to be that near . Daughter wonders if she can go back to assisted Living or if she will need a higher level of care/services; hopes we will order more Ph Tx as she has completed all the rehab she can get for her hip surgery. Review of Systems Constitutional: Constitutional: Reports fatigue and Reports weakness ENT: Denies epistaxis Cardiovascular: Cardiovascular: Denies chest pain, Denies pedal edema, Reports leg edema (improved) and Denies lightheadedness Respiratory: Respiratory: Reports dyspnea on exertion Gastrointestinal: Gastrointestinal: Denies abdo
[2021-11-09] MEDS: RIVAROXABAN 15 MG TABLET PO (17:56)
[2021-11-09] MEDS: ATORVASTATIN 40 MG TABLET PO (20:49)
[2021-11-09] MEDS: DONEPEZIL HCL 10 MG TABLET PO (20:49)
[2021-11-10] VITALS (12 sets, daily range): BP systolic 120–149; BP diastolic 37–68; PULSE 43–77; RESP 16–20; TEMP 36–36.8; O2SAT 92–100; BMI 23.8
[2021-11-10 05:17] LABS: Basophils Percent Auto 0.6 % (0.2-1.2); Eosinophils Percent Auto 0.6 % (0-4.4); Hematocrit 31.5 % (37.0-47.0); Hemoglobin 9.6 g/dL (12.0-15.0); Immature Granulocyte Absolute 0.02 K/mm3 (0.00-0.031); Immature Granulocyte Percent A 0.3 % (0-0.5); Lymphocytes Absolute Auto 1.62 K/mm3 (0.9-3.2); Lymphocytes Percent Auto 25.6 % (18.3-44.2); Mean Corpuscular HGB Conc 30.5 g/dl (32-36); Mean Corpuscular Hemoglobin 28.6 pg (26-34); Mean Corpuscular Volume 93.8 fl (80-100); Mean Platelet Volume 11.7 fl (7.4-10.4); Monocytes Percent Auto 15.5 % (2.6-8.5); Neutrophils Absolute Auto 3.6 K/mm3 (1.3-6.7); Neutrophils Percent Auto 57.4 % (45.5-73.1); Platelet Count Result 160 k/mm3 (150-375); Red Blood Count 3.36 M/mm3 (4.2-5.4); Red Cell Distribution Width 14.2 % (11.5-14.5); White Blood Count 6.3 K/mm3 (4.5-10.0)
[2021-11-10 05:28] LABS: Alanine Aminotransferase 11 U/L (4-35); Albumin Level 3.6 g/dL (3.5-5.1); Alkaline Phosphatase 68 U/L (38-126); Anion Gap 5 mmol/L (8-16); Aspartate Amino Transferase 25 U/L (14-36); Bilirubin,Total 0.5 mg/dL (0.2-1.3); Blood Urea Nitrogen 23 mg/dL (7-17); Calcium 8.3 mg/dL (8.4-10.2); Carbon Dioxide 37 mmol/L (22-30); Chloride 94 mmol/L (98-107); Estimated CRCL calculation 40 ml/min; Estimated Glomerular Filt Rate 53; Glucose 119 mg/dL (65-110); Magnesium 1.7 mg/dL (1.6-2.3); Potassium 3.3 mmol/L (3.4-5.0); Sodium 136 mmol/L (137-145)
[2021-11-10] MEDS: LEVOTHYROXINE SODIUM 125 MCG TABLET PO (05:48)
[2021-11-10] MEDS: MAGNESIUM SULF 2 GM/WATER 50ML 2 GM/50 ML BAG IVPB (06:33)
[2021-11-10] MEDS: POTASSIUM CHLORIDE 20 MEQ PACKET (FOR LIQUID) 40 MEQ PO (09:04)
[2021-11-10] MEDS: lisinopriL 20 MG TABLET 40 MG PO (09:05)
[2021-11-10] MEDS: POTASSIUM CHLORIDE 20 MEQ TABLET.ER PO (09:05)
[2021-11-10] MEDS: MIRABEGRON 50 MG ER TABLET PO (09:05)
[2021-11-10] MEDS: FAMOTIDINE 20 MG TABLET 40 MG PO (09:06)
[2021-11-10] MEDS: EZETIMIBE 10 MG TABLET PO (09:06)
[2021-11-10] MEDS: MEMANTINE 10 MG TABLET PO ×2 (09:06→20:04)
[2021-11-10] MEDS: FERROUS SULFATE 324 MG TABLET PO ×2 (09:06→17:59)
[2021-11-10] MEDS: METOPROLOL TARTRATE 25 MG TABLET PO ×2 (09:06→20:04)
[2021-11-10] MEDS: MECLIZINE HCL 12.5 MG TABLET PO (09:06)
[2021-11-10] MEDS: DULoxetine HCL 60 MG CAPSULE.DR PO (09:06)
[2021-11-10] MEDS: FUROSEMIDE INJ 40 MG/4 ML VIAL IV PUSH ×2 (09:07→20:05)
--- NOTE | 2021-11-10 10:02 | PCPTNOTE ---
The patient treatment was not able to be completed this A.M. due to HR in the 140s. PT will continue to follow per plan of care.
--- NOTE | 2021-11-10 10:16 | PCOTNOTE ---
Attempted OT treatment, patient reports to tired to participate with therapy at this time, will follow and attempt at later time.
--- NOTE | 2021-11-10 11:20 | P.PNIM_ITS ---
Progress Note: A&P Assessment and Plan (1) Acute on chronic congestive heart failure: Code(s): I50.9 - Heart failure, unspecified Status: Acute Assessment and Plan: * acute exacerbation of combined systolic and diastolic heart failure * Chest Xray new congestive changes, pleural effusions, bilateral infiltrates * could be due to newly diagnosed atrial fibrillation * Lasix 40 mg IV b.i.d. * echocardiogram EF is 30-35% with diastolic dysfunction, Severe hypokinesis of the anterolateral and anteroseptal areas with akinesis of the apex. Which is a significant decline since June ejection fraction 65-70% grade 2 diastolic dysfunction no significant valvular disease * trend output * daily weights * Urinary catheter for strict I&Os (2) Acute and chronic respiratory failure: Code(s): J96.20 - Acute and chronic respiratory failure, unspecified whether with hypoxia or hypercapnia Status: Acute Assessment and Plan: * Worsening today as O2 demand is much greater today * saturations low prior to being brought in * Able to be titrated to 1-2LNC sating 97% * supplemental oxygen * titrate oxygen to maintain a saturation greater than 92% (3) Atrial flutter with rapid ventricular response: Code(s): I48.92 - Unspecified atrial flutter Status: Acute Assessment and Plan: * atrial fibrillation with rapid ventricular rate on EKG * Cardizem drip started and continued at 15ml/hr * Cardiology consultation thank you for your help * TSH 23.100, T4 1.08 * K is 3.3, Mg 1.7 * No prior history of atrial fibrillation * Lovenox for anticoagulation * add metoprolol 25mg PO BID * HR seems to be better controlled in the 70-80s (4) Cardiomyopathy: Code(s): I42.9 - Cardiomyopathy, unspecified Status: Acute Assessment and Plan: * New found problem * Cardiology managing * Metoprolol 25mg PO Q12, lisinopril 40mg PO Qam, and furosemide 40mg IV Q12hr * Trend output * Trend BP (5) Acute dyspnea: Code(s): R06.00 - Dyspnea, unspecified Status: Acute Assessment and Plan: * SOB related to AFIB RVR * Supplemental oxygen 2L high flow cannula * Wean to maintain saturations (6) Hypothyroid: Code(s): E03.9 - Hypothyroidism, unspecified Status: Acute Assessment and Plan: * TSH 23.100 * levothyroxine probably needs to be increased * might not be absorbed well due to ongoing CHF * repeat as an outpatient basis * T3 pending-T4 1.08 (7) Left bundle branch block: Code(s): I44.7 - Left bundle-branch block, unspecified Status: Acute Assessment and Plan: * seen in the EKG * cardiology consulted * tele monitor * trend (8) Dementia: Code(s): F03.90 - Unspecified dementia without behavioral disturbance Status: Acute Assessment and Plan: * continue home medications (9) COPD (chronic obstructive pulmonary disease): Qualifiers: COPD type: unspecified COPD Qualified Code(s): J44.9 - Chronic obstructive pulmonary disease, unspecified Code(s): J44.9 - Chronic obstructive pulmonary disease, unspecified Status: Acute Assessment and Plan: * continue home medications * breathing treatments * supplemental oxygen (10) KAYLA on CPAP: Code(s):
--- NOTE | 2021-11-10 11:20 | PM.IMPN ---
Progress Note: A&P Assessment and Plan (1) Acute on chronic congestive heart failure: Code(s): I50.9 - Heart failure, unspecified Status: Acute Assessment and Plan: acute exacerbation of combined systolic and diastolic heart failure Chest Xray new congestive changes, pleural effusions, bilateral infiltrates could be due to newly diagnosed atrial fibrillation Lasix 40 mg IV b.i.d. echocardiogram EF is 30-35% with diastolic dysfunction, Severe hypokinesis of the anterolateral and anteroseptal areas with akinesis of the apex. Which is a significant decline since June ejection fraction 65-70% grade 2 diastolic dysfunction no significant valvular disease trend output daily weights Urinary catheter for strict I&Os (2) Acute and chronic respiratory failure: Code(s): J96.20 - Acute and chronic respiratory failure, unspecified whether with hypoxia or hypercapnia Status: Acute Assessment and Plan: Worsening today as O2 demand is much greater today saturations low prior to being brought in Able to be titrated to 1-2LNC sating 97% supplemental oxygen titrate oxygen to maintain a saturation greater than 92% (3) Atrial flutter with rapid ventricular response: Code(s): I48.92 - Unspecified atrial flutter Status: Acute Assessment and Plan: atrial fibrillation with rapid ventricular rate on EKG Cardizem drip started and continued at 15ml/hr Cardiology consultation thank you for your help TSH 23.100, T4 1.08 K is 3.3, Mg 1.7 No prior history of atrial fibrillation Lovenox for anticoagulation add metoprolol 25mg PO BID HR seems to be better controlled in the 70-80s (4) Cardiomyopathy: Code(s): I42.9 - Cardiomyopathy, unspecified Status: Acute Assessment and Plan: New found problem Cardiology managing Metoprolol 25mg PO Q12, lisinopril 40mg PO Qam, and furosemide 40mg IV Q12hr Trend output Trend BP (5) Acute dyspnea: Code(s): R06.00 - Dyspnea, unspecified Status: Acute Assessment and Plan: SOB related to AFIB RVR Supplemental oxygen 2L high flow cannula Wean to maintain saturations (6) Hypothyroid: Code(s): E03.9 - Hypothyroidism, unspecified Status: Acute Assessment and Plan: TSH 23.100 levothyroxine probably needs to be increased might not be absorbed well due to ongoing CHF repeat as an outpatient basis T3 pending-T4 1.08 (7) Left bundle branch block: Code(s): I44.7 - Left bundle-branch block, unspecified Status: Acute Assessment and Plan: seen in the EKG cardiology consulted tele monitor trend (8) Dementia: Code(s): F03.90 - Unspecified dementia without behavioral disturbance Status: Acute Assessment and Plan: continue home medications (9) COPD (chronic obstructive pulmonary disease): Qualifiers: COPD type: unspecified COPD Qualified Code(s): J44.9 - Chronic obstructive pulmonary disease, unspecified Code(s): J44.9 - Chronic obstructive pulmonary disease, unspecified Status: Acute Assessment and Plan: continue home medications breathing treatments supplemental oxygen (10) KAYLA on CPAP: Code(s): G47.33 - Obstructive sleep apnea (adult) (pediatric); Z99.89 - Dependence on other enabling machines and devices Status: Acute Assessment and Plan: continue home settings (11) Essential hypertension: Code(s): I10 - Essential (primary) hypertension Status: Acute Assessment and Plan: current blood pressure is stable at 124/48 continue home medications trend blood pressure adjust as indicated (12) Mixed hyperlipidemia: Code(s): E78.2 - Mixed hyperlipidemia Status: Acute Assessment and Plan: continue medicati
--- NOTE | 2021-11-10 14:57 | PM.PNCARD ---
Progress Note: A&P Assessment and Plan (1) Atrial flutter with rapid ventricular response: Code(s): I48.92 - Unspecified atrial flutter Status: Acute Assessment and Plan: New onset of atrial flutter RVR, probably related to age, hypertension, cardiomyopathy etc. TSH is high rather than low. Rate control and anticoagulation strategy. Converted to NSR Added metop to 25 mg BID on admission CHADS2-VASC score 5, at high risk of CVA. Pt's fall risk is low since she is WC-bound. Now on Xarelto 15mg daily. Follow on Telemetry (2) Acute systolic (congestive) heart failure: Code(s): I50.21 - Acute systolic (congestive) heart failure Status: Acute Assessment and Plan: Acute CHF with a left pleural effusion. EF 30-35%. Unclear if this is the result of her a flutter RVR or the cause of her atrial flutter RVR--more likely the former as her EF was normal in June and hopefully the EF will improve w/ HR control. Feeling better and diuresing. Cont furosemide 40 mg IVP BID for now; renal function, electrolytes are stable (K+ 3.3 this a.m., this was repleted) Cont metoprolol and lisinopril. Daily BMP Compression stockings (3) Cardiomyopathy: Code(s): I42.9 - Cardiomyopathy, unspecified Status: Acute Assessment and Plan: New cardiomyopathy most likely 2nd a flutter RVR. Could be 2nd to LBBB, but her decline has been abrupt so unlikely. She has segmental wall motion abnormalities and chest tightness which suggests CAD but Troponins are flat however, so no evidence of STEMI or ACS, though may have some CAD and ischemia related to heart rate. Treat w/ BB, ACEI, diuretics LV function will probably improve with rate control, so did not start Entresto (4) Left bundle branch block: Code(s): I44.7 - Left bundle-branch block, unspecified Status: Acute Assessment and Plan: Chronic left bundle-branch block. (5) Essential hypertension: Code(s): I10 - Essential (primary) hypertension Status: Acute Assessment and Plan: Hypertension with blood pressure at goal. (6) Weakness: Code(s): R53.1 - Weakness Status: Acute Assessment and Plan: Pt WC bound since hip fx, poor endurance 2nd COPD and now CHF. Daughter would like another Ph Tx eval; has run out of Medicare benefits from hip fx. Further disposition re: home services per hospitalist. Subjective Date/time seen: 11/10/21 14:57 Interval history: Follow-up new onset atrial flutter RVR, new onset CHF and cardiomyopathy. Echo this admission showed a decline in LV function, EF now 30-35% with segmental wall motion abnormalities and moderate mitral regurgitation. 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 Date of service 11/09/2021: Yesterday pt converted to NSR. I increased her metoprolol to 25 mg b.i.d., discontinued her Cardizem drip, and we continued her GERRY-inhibitor as well as started in IV furosemide. Today heart rate is 60s to 80s. She is on 6 L of oxygen. Breathing better. Galindo placed, good diuresis. Abdominal distension improved. Daughter was asking the opinion of pt's RN and me about Hospice as apparently Marixa Burnett had suggested it. In my opinion, she does not appear to be that near . Daughter wonders if she can go back to assisted Living or if she will need a higher level of care/services; hopes we will order more Ph Tx as she has completed all the rehab she can get for her hip surgery. Date of service 11/10/2021: Reverted back to AF RVR earlier today. Was given an extra 50mg metoprolol which converted her to NSR which she remains in now. She feels tired today, mild shortness of breath. She does not have any other complaints. Had long discussion with patient and her son who is the POA regarding he
[2021-11-10] MEDS: RIVAROXABAN 15 MG TABLET PO (17:59)
--- NOTE | 2021-11-10 18:25 | PC.NURSE ---
Report given to MARTINA Calixto at [id number]. All questions answered and plan of care reviewed. Patient to go to 2nd medical room 248.
--- NOTE | 2021-11-10 18:40 | PC.NURSE ---
Patient received from IMU. Report received from MARTINA Dodd.
[2021-11-10] MEDS: ATORVASTATIN 40 MG TABLET PO (20:04)
[2021-11-10] MEDS: DONEPEZIL HCL 10 MG TABLET PO (20:04)
[2021-11-11] VITALS (36 sets, daily range): BP systolic 85–137; BP diastolic 46–91; PULSE 63–140; RESP 16–25; TEMP 35.8–36.8; O2SAT 96–100
[2021-11-11] MEDS: LEVOTHYROXINE SODIUM 125 MCG TABLET PO (05:29)
[2021-11-11 05:30] LABS: Basophils Absolute Auto 0.1 K/mm3 (0.0-0.1); Basophils Percent Auto 0.9 % (0.2-1.2); Eosinophils Absolute Auto 0.2 K/mm3 (0-0.3); Eosinophils Percent Auto 2.3 % (0-4.4); Hematocrit 33.2 % (37.0-47.0); Hemoglobin 9.9 g/dL (12.0-15.0); Immature Granulocyte Absolute 0.02 K/mm3 (0.00-0.031); Immature Granulocyte Percent A 0.3 % (0-0.5); Lymphocytes Absolute Auto 1.34 K/mm3 (0.9-3.2); Lymphocytes Percent Auto 20.8 % (18.3-44.2); Mean Corpuscular HGB Conc 29.8 g/dl (32-36); Mean Corpuscular Hemoglobin 28.4 pg (26-34); Mean Corpuscular Volume 95.4 fl (80-100); Mean Platelet Volume 11.9 fl (7.4-10.4); Monocytes Percent Auto 15.4 % (2.6-8.5); Neutrophils Absolute Auto 3.9 K/mm3 (1.3-6.7); Neutrophils Percent Auto 60.3 % (45.5-73.1); Platelet Count Result 160 k/mm3 (150-375); Red Blood Count 3.48 M/mm3 (4.2-5.4); Red Cell Distribution Width 14.4 % (11.5-14.5); White Blood Count 6.4 K/mm3 (4.5-10.0)
[2021-11-11 05:46] LABS: Alanine Aminotransferase 11 U/L (4-35); Albumin Level 3.5 g/dL (3.5-5.1); Alkaline Phosphatase 70 U/L (38-126); Anion Gap 4 mmol/L (8-16); Aspartate Amino Transferase 26 U/L (14-36); Bilirubin,Total 0.6 mg/dL (0.2-1.3); Blood Urea Nitrogen 29 mg/dL (7-17); Calcium 8.4 mg/dL (8.4-10.2); Carbon Dioxide 38 mmol/L (22-30); Chloride 94 mmol/L (98-107); Estimated CRCL calculation 36 ml/min; Estimated Glomerular Filt Rate 47; Glucose 112 mg/dL (65-110); Magnesium 2.1 mg/dL (1.6-2.3); Potassium 3.4 mmol/L (3.4-5.0); Sodium 136 mmol/L (137-145)
[2021-11-11] MEDS: POTASSIUM CHLORIDE 20 MEQ PACKET (FOR LIQUID) 40 MEQ PO (06:53)
--- NOTE | 2021-11-11 07:00 | ECG_ITS ---
Measurements Intervals [place] Rate: 131 P: RI: 0 QRS: -20 QRSD: 152 T: 133 QT: 349 QTc: 517 Interpretive Statements ATRIAL FIBRILLATION WITH RAPID VENTRICULAR RESPONSE LEFT BUNDLE BRANCH BLOCK ABNORMAL ECG Electronically Signed On 11-11-2021 8:35:16 [employer] by Alessandro Tracy D.O.
[2021-11-11] MEDS: METOPROLOL TARTRATE 25 MG TABLET PO ×2 (07:05→21:28)
[2021-11-11] MEDS: FAMOTIDINE 20 MG TABLET 40 MG PO (08:10)
[2021-11-11] MEDS: POTASSIUM CHLORIDE 20 MEQ TABLET.ER PO (08:11)
[2021-11-11] MEDS: FERROUS SULFATE 324 MG TABLET PO ×2 (08:11→17:12)
[2021-11-11] MEDS: EZETIMIBE 10 MG TABLET PO (08:11)
[2021-11-11] MEDS: DULoxetine HCL 60 MG CAPSULE.DR PO (08:11)
[2021-11-11] MEDS: MIRABEGRON 50 MG ER TABLET PO (08:11)
[2021-11-11] MEDS: MEMANTINE 10 MG TABLET PO ×2 (08:11→21:26)
[2021-11-11] MEDS: FUROSEMIDE INJ 40 MG/4 ML VIAL IV PUSH ×2 (08:37→21:26)
[2021-11-11] MEDS: METOPROLOL TARTRATE INJ 5 MG/5 ML VIAL IV PUSH (09:08)
--- NOTE | 2021-11-11 09:17 | PM.PNCARD ---
Progress Note: A&P Assessment and Plan (1) Atrial flutter with rapid ventricular response: Code(s): I48.92 - Unspecified atrial flutter <KENA Peterson - Last Filed: 11/11/21 13:23> Status: Acute <KENA Peterson - Last Filed: 11/11/21 13:23> Assessment and Plan: New onset of atrial flutter RVR, probably related to age, hypertension, cardiomyopathy etc. TSH is high rather than low. Had converted to NSR, now in AFib RVR rate 120-150, mostly in the 130's. Give 5mg IV Lopressor now Transfer to IMU for Amiodarone drip. Monitor closely on telemetry. Will obtain EKG this afternoon to check QTc Increase metoprolol to 37.5mg b.i.d. CHADS2-VASC score 5, at high risk of CVA. Pt's fall risk is low since she is WC-bound. Now on Xarelto 15mg daily. ? Consider cardioversion if she does not respond to amiodarone <KENA Peterson - Last Filed: 11/11/21 13:23> (2) Acute systolic (congestive) heart failure: Code(s): I50.21 - Acute systolic (congestive) heart failure <KENA Peterson - Last Filed: 11/11/21 13:23> Status: Acute <KENA Peterson - Last Filed: 11/11/21 13:23> Assessment and Plan: Acute CHF with a left pleural effusion. EF 30-35%. Unclear if this is the result of her a flutter RVR or the cause of her atrial flutter RVR--more likely the former as her EF was normal in June and hopefully the EF will improve w/ HR control. Feeling better and diuresing. Cont furosemide 40 mg IVP BID for now; renal function, electrolytes are stable (K+ 3.4 this a.m., this was repleted) Cont metoprolol and lisinopril (lisinopril held this a.m. for borderline hypotension, wanted to have room to treat tachycardia) Daily BMP Compression stockings <KATIE PetersonC - Last Filed: 11/11/21 13:23> (3) Cardiomyopathy: Code(s): I42.9 - Cardiomyopathy, unspecified <KENA Peterson - Last Filed: 11/11/21 13:23> Status: Acute <KATIE PetersonC - Last Filed: 11/11/21 13:23> Assessment and Plan: New cardiomyopathy most likely 2nd a flutter RVR. Could be 2nd to LBBB, but her decline has been abrupt so unlikely. She has segmental wall motion abnormalities and chest tightness which suggests CAD but Troponins are flat however, so no evidence of STEMI or ACS, though may have some CAD and ischemia related to heart rate. Treat w/ BB, ACEI, diuretics LV function will probably improve with rate control, so did not start Entresto <Dian Castrejon APN-C - Last Filed: 11/11/21 13:23> (4) Left bundle branch block: Code(s): I44.7 - Left bundle-branch block, unspecified <Dian Castrejon APN-C - Last Filed: 11/11/21 13:23> Status: Acute <KENA Peterson - Last Filed: 11/11/21 13:23> Assessment and Plan: Chronic left bundle-branch block. <KENA Peterson - Last Filed: 11/11/21 13:23> (5) Essential hypertension: Code(s): I10 - Essential (primary) hypertension <KATIE PetersonC - Last Filed: 11/11/21 13:23> Status: Acute <Dian Castrejon APN-C - Last Filed: 11/11/21 13:23> Assessment and Plan: Hypertension with blood pressure at goal. <KENA Peterson - Last Filed: 11/11/21 13:23> (6) Weakness: Code(s): R53.1 - Weakness <KATIE PetersonC - Last Filed: 11/11/21 13:23> Status: Acute <KENA Peterson - Last Filed: 11/11/21 13:23> Assessment and Plan: Pt WC bound since hip fx, poor endurance 2nd COPD and now CHF. Daughter would like another Ph Tx eval; has run out of Medicare benefits from hip fx. Further disposition re: home services per hospitalist. <KENA Peterson - Last Filed: 11/11/21 13:23> Additional Plan Attending manager acquisition: Patient seen and examined, ch
--- NOTE | 2021-11-11 09:28 | PC.NURSE ---
Patient transferred to [facility]. Report given to MARTINA Jernigan.
[2021-11-11 09:39] LABS: IFOB Positive Control Positive; Immunochemical Fecal Occult Bl Positive (N)
[2021-11-11] MEDS: dilTIAZem 100 MG/100 ML 100 MG/100 ML BAG IV CONT (09:58)
--- NOTE | 2021-11-11 10:09 | PCOTNOTE ---
Per RN hold Occupational therapy for today due to increased heart rate. Will follow and attempt tomorrow.
[2021-11-11] MEDS: MECLIZINE HCL 12.5 MG TABLET PO (11:50)
[2021-11-11] MEDS: AMIODARONE 150 MG/D5W 100 ML 150 MG/100 ML BAG 600 MG IV CONT (11:55)
[2021-11-11] MEDS: SODIUM CHLORIDE 0.9% IV 250 ML 100 ML (12:02)
[2021-11-11] MEDS: AMIODARONE 360 MG/D5W 200 ML 360 MG/200 ML BAG 33.33 MG IV CONT (12:09)
[2021-11-11] MEDS: HYDROcodone/acetaminophen (*CRX) 5-325 MG TABLET 1 TAB PO (12:30)
--- NOTE | 2021-11-11 12:45 | P.PNIM_ITS ---
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 * echocardiogram EF is 30-35% with diastolic dysfunction, Severe hypokinesis of the anterolateral and anteroseptal areas with akinesis of the apex. Which is a significant decline since June ejection fraction 65-70% grade 2 diastolic dysfunction no significant valvular disease * trend output * daily weights * Urinary catheter for strict I&Os (2) Acute and chronic respiratory failure: Code(s): J96.20 - Acute and chronic respiratory failure, unspecified whether with hypoxia or hypercapnia Status: Acute Assessment and Plan: * Worsening today as O2 demand is much greater today * saturations low prior to being brought in * Able to be titrated to 1-2LNC sating 97% * supplemental oxygen * titrate oxygen to maintain a saturation greater than 92% (3) Atrial flutter with rapid ventricular response: Code(s): I48.92 - Unspecified atrial flutter Status: Acute Assessment and Plan: * atrial fibrillation with rapid ventricular rate on EKG 11/11/21 * Cardizem drip discontinued amiodarone started * Cardiology consultation thank you for your help * TSH 23.100, T4 1.08 * K is 3.3, Mg 1.7 * No prior history of atrial fibrillation * Lovenox for anticoagulation * add metoprolol 25mg PO BID * HR seems to be better controlled in the 70-80s * Cardiology talked to patient about a life vest, patient does not want this (4) Cardiomyopathy: Code(s): I42.9 - Cardiomyopathy, unspecified Status: Acute Assessment and Plan: * New found problem * Cardiology managing * Metoprolol 25mg PO Q12, lisinopril 40mg PO Qam, and furosemide 40mg IV Q12hr * Trend output * Trend BP (5) Acute dyspnea: Code(s): R06.00 - Dyspnea, unspecified Status: Acute Assessment and Plan: * SOB related to AFIB RVR * Supplemental oxygen 2L high flow cannula * Wean to maintain saturations (6) Hypothyroid: Code(s): E03.9 - Hypothyroidism, unspecified Status: Acute Assessment and Plan: * TSH 23.100 * levothyroxine probably needs to be increased * might not be absorbed well due to ongoing CHF * repeat as an outpatient basis * T3 pending-T4 1.08 (7) Left bundle branch block: Code(s): I44.7 - Left bundle-branch block, unspecified Status: Acute Assessment and Plan: * seen in the EKG * cardiology consulted * tele monitor * trend (8) Dementia: Code(s): F03.90 - Unspecified dementia without behavioral disturbance Status: Acute Assessment and Plan: * continue home medications (9) COPD (chronic obstructive pulmonary disease): Qualifiers: COPD type: unspecified COPD Qualified Code(s): J44.9 - Chronic obstructive pulmonary disease, unspecified Code(s): J44.9 - Chronic obstructive pulmonary disease, unspecified Status: Acute Assessment and Plan: * continue home medications * breathing treatmen
--- NOTE | 2021-11-11 12:45 | PM.IMPN ---
Progress Note: A&P Assessment and Plan (1) Acute on chronic congestive heart failure: Code(s): I50.9 - Heart failure, unspecified Status: Acute Assessment and Plan: acute exacerbation of combined systolic and diastolic heart failure Chest Xray Worsened diffuse lung disease, likely pulmonary edema and PNA 11/09/21 could be due to newly diagnosed atrial fibrillation Lasix 40 mg IV b.i.d. echocardiogram EF is 30-35% with diastolic dysfunction, Severe hypokinesis of the anterolateral and anteroseptal areas with akinesis of the apex. Which is a significant decline since June ejection fraction 65-70% grade 2 diastolic dysfunction no significant valvular disease trend output daily weights Urinary catheter for strict I&Os (2) Acute and chronic respiratory failure: Code(s): J96.20 - Acute and chronic respiratory failure, unspecified whether with hypoxia or hypercapnia Status: Acute Assessment and Plan: Worsening today as O2 demand is much greater today saturations low prior to being brought in Able to be titrated to 1-2LNC sating 97% supplemental oxygen titrate oxygen to maintain a saturation greater than 92% (3) Atrial flutter with rapid ventricular response: Code(s): I48.92 - Unspecified atrial flutter Status: Acute Assessment and Plan: atrial fibrillation with rapid ventricular rate on EKG 11/11/21 Cardizem drip discontinued amiodarone started Cardiology consultation thank you for your help TSH 23.100, T4 1.08 K is 3.3, Mg 1.7 No prior history of atrial fibrillation Lovenox for anticoagulation add metoprolol 25mg PO BID HR seems to be better controlled in the 70-80s Cardiology talked to patient about a life vest, patient does not want this (4) Cardiomyopathy: Code(s): I42.9 - Cardiomyopathy, unspecified Status: Acute Assessment and Plan: New found problem Cardiology managing Metoprolol 25mg PO Q12, lisinopril 40mg PO Qam, and furosemide 40mg IV Q12hr Trend output Trend BP (5) Acute dyspnea: Code(s): R06.00 - Dyspnea, unspecified Status: Acute Assessment and Plan: SOB related to AFIB RVR Supplemental oxygen 2L high flow cannula Wean to maintain saturations (6) Hypothyroid: Code(s): E03.9 - Hypothyroidism, unspecified Status: Acute Assessment and Plan: TSH 23.100 levothyroxine probably needs to be increased might not be absorbed well due to ongoing CHF repeat as an outpatient basis T3 pending-T4 1.08 (7) Left bundle branch block: Code(s): I44.7 - Left bundle-branch block, unspecified Status: Acute Assessment and Plan: seen in the EKG cardiology consulted tele monitor trend (8) Dementia: Code(s): F03.90 - Unspecified dementia without behavioral disturbance Status: Acute Assessment and Plan: continue home medications (9) COPD (chronic obstructive pulmonary disease): Qualifiers: COPD type: unspecified COPD Qualified Code(s): J44.9 - Chronic obstructive pulmonary disease, unspecified Code(s): J44.9 - Chronic obstructive pulmonary disease, unspecified Status: Acute Assessment and Plan: continue home medications breathing treatments supplemental oxygen (10) KAYLA on CPAP: Code(s): G47.33 - Obstructive sleep apnea (adult) (pediatric); Z99.89 - Dependence on other enabling machines and devices Status: Acute Assessment and Plan: continue home settings (11) Essential hypertension: Code(s): I10 - Essential (primary) hypertension Status: Acute Assessment and Plan: current blood pressure is stable at 104/63 continue home medications trend blood pressure adjust as indicated (12) Mixed hyperlipidemia: Code(s): E78.2
--- NOTE | 2021-11-11 13:01 | PC.NURSE ---
@1000-patient arrived by bed to [facility] room 7. telemonitor d/c and place patient on continuous monitoring. afib rvr noted on monitor cardizem started, see mar @1100- ekg qrs changed noted, windows and doors installer notified, windows and doors installer arrived, md arrived, new med changes. cardizem d/c and amiodarone started, see mar @1230-hospitalist at bedside. new orders noted. patient c/o chest and arm pain that started this morning. ekg was obtained before [facility] arrival, and no new changes noted. will continue to monitor.
--- NOTE | 2021-11-11 13:03 | PCPTNOTE ---
Per OT's note therapy hold today due to increase heart rate.
--- NOTE | 2021-11-11 13:45 | PC.NURSE ---
This patient, Qian Cheek, was received from [facility] on 11/11/21 at 1739. Patient/family oriented to unit policies and routines
--- NOTE | 2021-11-11 15:26 | PC.NURSE ---
Report give to MARTINA Nuñez on IMU
--- NOTE | 2021-11-11 15:45 | PC.NURSE ---
This patient, Qian Cheek, was received from [facility] on 11/11/21 at 1545. Patient/family oriented to unit policies and routines
[2021-11-11] MEDS: RIVAROXABAN 15 MG TABLET PO (17:12)
[2021-11-11] MEDS: AMIODARONE 360 MG/D5W 200 ML 360 MG/200 ML BAG 16.67 MG IV CONT (17:16)
[2021-11-11] MEDS: DONEPEZIL HCL 10 MG TABLET PO (21:26)
[2021-11-11] MEDS: ATORVASTATIN 40 MG TABLET PO (21:26)
[2021-11-11] MEDS: METOPROLOL TARTRATE 12.5 MG TABLET PO (21:27)
[2021-11-12] VITALS (14 sets, daily range): BP systolic 99–120; BP diastolic 48–82; PULSE 116–130; RESP 18–22; TEMP 35.6–36.7; O2SAT 100
[2021-11-12 05:09] LABS: Basophils Absolute Auto 0.1 K/mm3 (0.0-0.1); Basophils Percent Auto 0.8 % (0.2-1.2); Eosinophils Absolute Auto 0.1 K/mm3 (0-0.3); Eosinophils Percent Auto 1.4 % (0-4.4); Hematocrit 36.1 % (37.0-47.0); Hemoglobin 10.9 g/dL (12.0-15.0); Immature Granulocyte Absolute 0.04 K/mm3 (0.00-0.031); Immature Granulocyte Percent A 0.4 % (0-0.5); Lymphocytes Absolute Auto 1.38 K/mm3 (0.9-3.2); Lymphocytes Percent Auto 15.3 % (18.3-44.2); Mean Corpuscular HGB Conc 30.2 g/dl (32-36); Mean Corpuscular Hemoglobin 28.1 pg (26-34); Mean Platelet Volume 12.1 fl (7.4-10.4); Monocytes Absolute Auto 0.9 K/mm3 (0.1-0.6); Monocytes Percent Auto 10.3 % (2.6-8.5); Neutrophils Absolute Auto 6.5 K/mm3 (1.3-6.7); Neutrophils Percent Auto 71.8 % (45.5-73.1); Platelet Count Result 206 k/mm3 (150-375); Red Blood Count 3.88 M/mm3 (4.2-5.4); Red Cell Distribution Width 14.2 % (11.5-14.5)
[2021-11-12 05:26] LABS: Alanine Aminotransferase 15 U/L (4-35); Albumin Level 4.2 g/dL (3.5-5.1); Alkaline Phosphatase 82 U/L (38-126); Anion Gap 8 mmol/L (8-16); Aspartate Amino Transferase 34 U/L (14-36); Bilirubin,Total 0.6 mg/dL (0.2-1.3); Blood Urea Nitrogen 30 mg/dL (7-17); Calcium 9.1 mg/dL (8.4-10.2); Carbon Dioxide 35 mmol/L (22-30); Chloride 94 mmol/L (98-107); Estimated CRCL calculation 36 ml/min; Estimated Glomerular Filt Rate 47; Glucose 143 mg/dL (65-110); Magnesium 2.2 mg/dL (1.6-2.3); Potassium 4.2 mmol/L (3.4-5.0); Sodium 137 mmol/L (137-145)
[2021-11-12] MEDS: AMIODARONE 360 MG/D5W 200 ML 360 MG/200 ML BAG 16.67 MG IV CONT ×2 (07:11→17:05)
[2021-11-12] MEDS: LEVOTHYROXINE SODIUM 125 MCG TABLET PO (07:12)
[2021-11-12] MEDS: POTASSIUM CHLORIDE 20 MEQ TABLET.ER PO (07:55)
[2021-11-12] MEDS: FERROUS SULFATE 324 MG TABLET PO ×2 (07:55→17:04)
[2021-11-12] MEDS: FAMOTIDINE 20 MG TABLET 40 MG PO (07:56)
[2021-11-12] MEDS: MEMANTINE 10 MG TABLET PO ×2 (07:57→20:18)
[2021-11-12] MEDS: DULoxetine HCL 60 MG CAPSULE.DR PO (07:59)
[2021-11-12] MEDS: FUROSEMIDE INJ 40 MG/4 ML VIAL IV PUSH (07:59)
[2021-11-12] MEDS: METOPROLOL TARTRATE 25 MG TABLET PO ×2 (08:00→20:17)
[2021-11-12] MEDS: lisinopriL 20 MG TABLET 40 MG PO (08:01)
[2021-11-12] MEDS: EZETIMIBE 10 MG TABLET PO (08:01)
[2021-11-12] MEDS: METOPROLOL TARTRATE 12.5 MG TABLET PO ×2 (08:01→20:17)
[2021-11-12] MEDS: MIRABEGRON 50 MG ER TABLET PO (08:02)
[2021-11-12] MEDS: HYDROcodone/acetaminophen (*CRX) 5-325 MG TABLET 1 TAB PO (09:58)
--- NOTE | 2021-11-12 10:26 | ECG_ITS ---
Measurements Intervals [place] Rate: 116 P: SD: 0 QRS: -34 QRSD: 168 T: 143 QT: 386 QTc: 538 Interpretive Statements ATRIAL FLUTTER/TACHYCARDIA WITH RAPID VENTRICULAR RESPONSE LEFT AXIS DEVIATION LEFT BUNDLE BRANCH BLOCK ABNORMAL ECG Electronically Signed On 11-17-2021 16:40:32 [employer]PER[employer] EXECUT[employer] by Alessandro Tracy D.O.
--- NOTE | 2021-11-12 10:43 | PM.IMPN ---
Progress Note: A&P Assessment and Plan (1) Acute on chronic congestive heart failure: Code(s): I50.9 - Heart failure, unspecified Status: Acute Assessment and Plan: New onset of systolic heart failure -echocardiogram EF is 30-35% with diastolic dysfunction, Severe hypokinesis of the anterolateral and anteroseptal areas with akinesis of the apex. Which is a significant decline since June ejection fraction 65-70% grade 2 diastolic dysfunction no significant valvular disease -could be due to new onset AFib or causing the AFib -will transition IV Lasix to oral Lasix -repeat chest imaging -urinary catheter was implemented for accurate intake and output. Since this is improved and we are going to oral Lasix I will discontinue this -cardiology consulted, continue Lipitor, lisinopril, and metoprolol. On Xarelto. (2) Acute and chronic respiratory failure: Code(s): J96.20 - Acute and chronic respiratory failure, unspecified whether with hypoxia or hypercapnia Status: Acute Assessment and Plan: At her baseline 3 L of oxygen -continue home O2 (3) Atrial flutter with rapid ventricular response: Code(s): I48.92 - Unspecified atrial flutter Status: Acute Assessment and Plan: New onset atrial fibrillation with rapid ventricular rate on EKG 11/11/21 -was on a Cardizem drip and transition to amiodarone -cardiology consulted -no signs hyperthyroidism, electrolytes improved -continue Xarelto -Cardiology talked to patient about a life vest, patient does not want this (4) Cardiomyopathy: Code(s): I42.9 - Cardiomyopathy, unspecified Status: Acute Assessment and Plan: New as noted above (5) Acute dyspnea: Code(s): R06.00 - Dyspnea, unspecified Status: Acute Assessment and Plan: Improved with diuresis -continue home oxygen (6) Hypothyroid: Code(s): E03.9 - Hypothyroidism, unspecified Status: Acute Assessment and Plan: TSH 23.100 with a normal T4 and a pending T3 -levothyroxine has been increased (7) Left bundle branch block: Code(s): I44.7 - Left bundle-branch block, unspecified Status: Acute Assessment and Plan: Noted on the EKG -continue with Cardiology recommendations (8) Dementia: Code(s): F03.90 - Unspecified dementia without behavioral disturbance Status: Acute Assessment and Plan: She overall does well with this and is alert and oriented x4 today -any home meds -plan discussed with family at bedside (9) COPD (chronic obstructive pulmonary disease): Qualifiers: COPD type: unspecified COPD Qualified Code(s): J44.9 - Chronic obstructive pulmonary disease, unspecified Code(s): J44.9 - Chronic obstructive pulmonary disease, unspecified Status: Acute Assessment and Plan: No wheezing noted on exam -no signs of exacerbation (10) KAYLA on CPAP: Code(s): G47.33 - Obstructive sleep apnea (adult) (pediatric); Z99.89 - Dependence on other enabling machines and devices Status: Acute Assessment and Plan: Continue home CPAP settings (11) Essential hypertension: Code(s): I10 - Essential (primary) hypertension Status: Acute Assessment and Plan: Last blood pressure 120/71 -continue Lasix, lisinopril and metoprolol (12) Mixed hyperlipidemia: Code(s): E78.2 - Mixed hyperlipidemia Status: Acute Assessment and Plan: Continue Lipitor (13) Pneumonia: Code(s): J18.9 - Pneumonia, unspecified organism Status: Acute Assessment and Plan: Chest xray shows bilateral infiltrates which could indicate pneumonia -she is on cefepime and vancomycin -she does not have very many respiratory symptoms at this time. Will do chest CT to further evaluate -no fever or leukocytosis -COVID-19 appears less likely at this time, await CT
[2021-11-12 11:19] LABS: Triiodothyronine T3 Free 2.6 pg/mL (2.3-4.2)
[2021-11-12 16:14] LABS: Glucose Point of Care 164 mg/dl (65-105)
--- NOTE | 2021-11-12 16:40 | PM.PNCARD ---
Progress Note: A&P Assessment and Plan (1) Atrial flutter with rapid ventricular response: Code(s): I48.92 - Unspecified atrial flutter <KENA Peterson - Last Filed: 11/12/21 16:52> Status: Acute <KENA Peterson - Last Filed: 11/12/21 16:52> Assessment and Plan: New onset of atrial flutter RVR, probably related to age, hypertension, cardiomyopathy etc. TSH is high rather than low. Had converted to NSR, reverted back to atrial fibrillation rate in the 120s to 150s yesterday. Was initiated on amiodarone drip. Today she is in sinus tachycardia with a rate in the 1 teens. Sometimes on telemetry appears that she might be in atrial flutter. EKG was performed earlier today with the results are not available yet in her chart. Monitor closely on telemetry. EKG to check QTC (on amiodarone and Aricept). Continue IV amiodarone for now. Transition to oral amiodarone perhaps tomorrow. Increase metoprolol to 37.5mg b.i.d. CHADS2-VASC score 5, at high risk of CVA. Pt's fall risk is low since she is WC-bound. Now on Xarelto 15mg daily. <KENA Peterson - Last Filed: 11/12/21 16:52> (2) Acute systolic (congestive) heart failure: Code(s): I50.21 - Acute systolic (congestive) heart failure <KENA Peterson - Last Filed: 11/12/21 16:52> Status: Acute <KENA Peterson - Last Filed: 11/12/21 16:52> Assessment and Plan: Acute CHF with a left pleural effusion. EF 30-35%. Unclear if this is the result of her a flutter RVR or the cause of her atrial flutter RVR--more likely the former as her EF was normal in June and hopefully the EF will improve w/ HR control. Shortness of breath and lower extremity swelling have improved. Furosemide was transitioned from IV to oral today. She sounds worse on pulmonary exam today. ? worsening pneumonia although she is already on broad spectrum abx. She did have a chest CT done today that showed mild pulmonary edema small pleural effusions. Will give 1 dose of IV furosemide 20 mg once. Cont metoprolol and lisinopril Daily BMP Compression stockings <KENA Peterson - Last Filed: 11/12/21 16:52> (3) Cardiomyopathy: Code(s): I42.9 - Cardiomyopathy, unspecified <KENA Peterson - Last Filed: 11/12/21 16:52> Status: Acute <KENA Peterson - Last Filed: 11/12/21 16:52> Assessment and Plan: New cardiomyopathy most likely 2nd a flutter RVR. Could be 2nd to LBBB, but her decline has been abrupt so unlikely. She has segmental wall motion abnormalities and chest tightness which suggests CAD but Troponins are flat however, so no evidence of STEMI or ACS, though may have some CAD and ischemia related to heart rate. Treat w/ BB, ACEI, diuretics LV function will probably improve with rate control, so did not start Entresto <KENA Peterson - Last Filed: 11/12/21 16:52> (4) Left bundle branch block: Code(s): I44.7 - Left bundle-branch block, unspecified <KENA Peterson - Last Filed: 11/12/21 16:52> Status: Acute <KENA Peterson - Last Filed: 11/12/21 16:52> Assessment and Plan: Chronic left bundle-branch block. <KENA Peterson - Last Filed: 11/12/21 16:52> (5) Essential hypertension: Code(s): I10 - Essential (primary) hypertension <KENA Peterson - Last Filed: 11/12/21 16:52> Status: Acute <KENA Peterson - Last Filed: 11/12/21 16:52> Assessment and Plan: Hypertension with blood pressure at goal. <KENA Peterson - Last Filed: 11/12/21 16:52> (6) Weakness: Code(s): R53.1 - Weakness <KENA Peterson - Last Filed: 11/12/21 16:52> Status: Acute <KENA Peterson - Last Filed: 11/12/21 16:52> Assessment and Plan: Pt WC bound since hip fx, poor endurance 2nd COPD and now CHF. Daughter would
[2021-11-12] MEDS: FUROSEMIDE INJ 40 MG/4 ML VIAL 20 MG IV PUSH (17:04)
[2021-11-12] MEDS: RIVAROXABAN 15 MG TABLET PO (17:05)
[2021-11-12] MEDS: ATORVASTATIN 40 MG TABLET PO (20:16)
[2021-11-12] MEDS: DONEPEZIL HCL 10 MG TABLET PO (20:16)
[2021-11-12] MEDS: traZODone HCL 50 MG TABLET 150 MG PO (20:23)
--- NOTE | 2021-11-12 20:35 | PM.EVENT ---
Event Note Event Note Event Note: Cardiology attending note: Patient seen examined, chart reviewed. Feeling worse today. Has remained in atypical atrial flutter rate 118-125 for more than 24 hours. Very short of breath with activity. On exam pt tachycardic, on 3 L nasal prong, BP 100-104 mmHg. Tachycardic, regular rhythm, mildly diaphoretic, rales 1/2+ up bilaterally. Trace edema. Alert and oriented. Tele and CT scan reviewed. Impression: Persistent atypical atrial flutter RVR -- unable to control heart rate with IV amiodarone and metoprolol p.o. Congestive heart failure with pleural effusions --diuresing but with the rapid ventricular response she is not recovering well. Cardiomyopathy --EF 30-35% Plan: Additional bolus of IV amiodarone and increase the drip to 1 milligram/minute. Re-evaluate in the morning; if her heart rate is not better controlled consider a PAUL guided cardioversion. Patient is interested in pursuing this; glad that there is some hope for recovery. Discussed with patient's son and [id number]. Hold lisinopril due to soft BP. Continue furosemide IV as she still has significant pleural effusions.
[2021-11-12] MEDS: AMIODARONE 150 MG/D5W 100 ML 150 MG/100 ML BAG 600 MG IV CONT (22:16)
[2021-11-13] VITALS (19 sets, daily range): BP systolic 110–128; BP diastolic 40–51; PULSE 52–112; RESP 18–22; TEMP 35.7–36.8; O2SAT 95–100
[2021-11-13] MEDS: AMIODARONE 360 MG/D5W 200 ML 360 MG/200 ML BAG 16.67 MG IV CONT (03:33)
[2021-11-13 04:48] LABS: Basophils Absolute Auto 0.1 K/mm3 (0.0-0.1); Basophils Percent Auto 0.6 % (0.2-1.2); Eosinophils Absolute Auto 0.2 K/mm3 (0-0.3); Eosinophils Percent Auto 2.2 % (0-4.4); Hematocrit 33.3 % (37.0-47.0); Hemoglobin 10.2 g/dL (12.0-15.0); Immature Granulocyte Absolute 0.02 K/mm3 (0.00-0.031); Immature Granulocyte Percent A 0.2 % (0-0.5); Lymphocytes Absolute Auto 1.61 K/mm3 (0.9-3.2); Lymphocytes Percent Auto 19.2 % (18.3-44.2); Mean Corpuscular HGB Conc 30.6 g/dl (32-36); Mean Corpuscular Hemoglobin 28.7 pg (26-34); Mean Corpuscular Volume 93.5 fl (80-100); Mean Platelet Volume 11.9 fl (7.4-10.4); Monocytes Absolute Auto 0.9 K/mm3 (0.1-0.6); Monocytes Percent Auto 11.1 % (2.6-8.5); Neutrophils Absolute Auto 5.6 K/mm3 (1.3-6.7); Neutrophils Percent Auto 66.7 % (45.5-73.1); Platelet Count Result 214 k/mm3 (150-375); Red Blood Count 3.56 M/mm3 (4.2-5.4); Red Cell Distribution Width 14.3 % (11.5-14.5); White Blood Count 8.4 K/mm3 (4.5-10.0)
[2021-11-13 05:07] LABS: Anion Gap 11 mmol/L (8-16); Blood Urea Nitrogen 34 mg/dL (7-17); Calcium 8.7 mg/dL (8.4-10.2); Carbon Dioxide 33 mmol/L (22-30); Chloride 92 mmol/L (98-107); Estimated CRCL calculation 34 ml/min; Estimated Glomerular Filt Rate 43; Glucose 143 mg/dL (65-110); Potassium 3.4 mmol/L (3.4-5.0); Sodium 136 mmol/L (137-145)
[2021-11-13 05:27] LABS: Hemoglobin A1C 5.2 % (<5.7)
[2021-11-13] MEDS: LEVOTHYROXINE SODIUM 125 MCG TABLET PO (05:35)
--- NOTE | 2021-11-13 08:53 | ECG_ITS ---
Measurements Intervals [place] Rate: 60 P: 46 NH: 200 QRS: -18 QRSD: 169 T: 138 QT: 502 QTc: 504 Interpretive Statements SINUS RHYTHM BORDERLINE AV CONDUCTION DELAY LEFT BUNDLE BRANCH BLOCK ABNORMAL ECG Electronically Signed On 11-13-2021 16:51:36 WE[employer]OX TENDER by Alessandro Tracy D.O.
--- NOTE | 2021-11-13 09:17 | PM.PNCARD ---
Progress Note: A&P Assessment and Plan (1) Atrial flutter with rapid ventricular response: Code(s): I48.92 - Unspecified atrial flutter Status: Acute Assessment and Plan: New onset of atrial flutter RVR, probably related to age, hypertension, cardiomyopathy etc. TSH is high rather than low. Converted to sinus rhythm previously but recurred currents of AFib with RVR last night. Currently receiving IV amiodarone and converted back to sinus rhythm. Start amiodarone 400 mg p.o. b.i.d. and after receiving the p.o. amiodarone we will stop the IV amiodarone after 6 hours. Reduce metoprolol to 25 mg p.o. b.i.d. from 37.5 mg p.o. b.i.d. because heart rate 60 beats per minute. CHADS2-VASC score 5, at high risk of CVA. Pt's fall risk is low since she is WC-bound. Now on Xarelto 15mg daily. (2) Acute systolic (congestive) heart failure: Code(s): I50.21 - Acute systolic (congestive) heart failure Status: Acute Assessment and Plan: Acute CHF with a left pleural effusion. EF 30-35%. Unclear if this is the result of her a flutter RVR or the cause of her atrial flutter RVR--more likely the former as her EF was normal in June and hopefully the EF will improve w/ HR control. Shortness of breath and lower extremity swelling have improved. Laying flat on the bed today. Transition Lasix from 40 mg IV b.i.d. to 40 mg a p.o. b.i.d. Cont metoprolol and lisinopril Daily BMP Compression stockings (3) Cardiomyopathy: Code(s): I42.9 - Cardiomyopathy, unspecified Status: Acute Assessment and Plan: New cardiomyopathy most likely 2nd a flutter RVR. Could be 2nd to LBBB, but her decline has been abrupt so unlikely. She has segmental wall motion abnormalities and chest tightness which suggests CAD but Troponins are flat however, so no evidence of STEMI or ACS, though may have some CAD and ischemia related to heart rate. Treat w/ BB, ACEI, diuretics LV function will probably improve with rate control, so did not start Entresto (4) Left bundle branch block: Code(s): I44.7 - Left bundle-branch block, unspecified Status: Acute Assessment and Plan: Chronic left bundle-branch block. (5) Essential hypertension: Code(s): I10 - Essential (primary) hypertension Status: Acute Assessment and Plan: Hypertension with blood pressure at goal. (6) Weakness: Code(s): R53.1 - Weakness Status: Acute Assessment and Plan: Pt WC bound since hip fx, poor endurance 2nd COPD and now CHF. Daughter would like another Ph Tx eval; has run out of Medicare benefits from hip fx. Further disposition re: home services per hospitalist. Subjective Date/time seen: 11/13/21 09:17 Interval history: Follow-up new onset atrial flutter RVR, new onset CHF and cardiomyopathy. Echo this admission showed a decline in LV function, EF now 30-35% with segmental wall motion abnormalities and moderate mitral regurgitation. 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 Date of service 11/09/2021: Yesterday pt converted to NSR. I increased her metoprolol to 25 mg b.i.d., discontinued her Cardizem drip, and we continued her GERRY-inhibitor as well as started in IV furosemide. Today heart rate is 60s to 80s. She is on 6 L of oxygen. Breathing better. Galindo placed, good diuresis. Abdominal distension improved. Daughter was asking the opinion of pt's RN and me about Hospice as apparently [facility]ix[facility] Burnett had suggested it. In my opinion, she does not appear to be that near . Daughter wonders if she can go back to assisted Living or if she will need a higher level of care/services; hopes we will order more Ph Tx as she has completed all the rehab she can get for her hip surgery. Date of service 11/10/2021: Reverted back to AF RV
[2021-11-13] MEDS: AMIODARONE HCL 200 MG TABLET 400 MG PO ×2 (10:24→16:12)
[2021-11-13] MEDS: FAMOTIDINE 20 MG TABLET 40 MG PO (10:28)
[2021-11-13] MEDS: DULoxetine HCL 60 MG CAPSULE.DR PO (10:28)
[2021-11-13] MEDS: MIRABEGRON 50 MG ER TABLET PO (10:29)
[2021-11-13] MEDS: POTASSIUM CHLORIDE 20 MEQ TABLET.ER PO (10:29)
[2021-11-13] MEDS: EZETIMIBE 10 MG TABLET PO (10:29)
[2021-11-13] MEDS: METOPROLOL TARTRATE 25 MG TABLET PO ×2 (10:30→20:50)
[2021-11-13] MEDS: FERROUS SULFATE 324 MG TABLET PO ×2 (10:30→16:10)
[2021-11-13] MEDS: MEMANTINE 10 MG TABLET PO ×2 (10:31→20:50)
--- NOTE | 2021-11-13 15:40 | PCNFU ---
Nutrition Follow-Up Complete: Inadequate oral intake related to atrial flutter w/RVR and dyspnea as evidenced by reported average intake of 57% Goal: Meet nutritional needs Pt. is progressing towards goal. No new goal at this time. Pt current nutrition is NPO except meds with sips. Last recorded weight is 72.7 kg. Recommend re-weighing prior to discharge. Bowel Motility: + BM 11/13/2021 Labs Reviewed: Hgb 10.2, Hct 33.3, Na 136, GFR 43, BUN 34, Cr 1.2, Glu 143 Meds Noted: Pacerone, Lipitor, Aricept, Zetia, Pepcid, Cymbalta, Synthroid, Ferrous Sulfate, Lasix Tablet, Lopressor, Antivert, Protonix, Miralax, Desyrel, Xarelto, KCl Tablet Skin: No skin breakdown at this time. WNL. Additional Notes: Prior to recent diet change patient was consuming on average 25% of meals and was on ensure compact BID providing an additional 220 calories and 9 grams of protein. Will continue to monitor weight changes and oral intake once diet advances. Monitor labs, wt, medications, and reported intake
[2021-11-13] MEDS: RIVAROXABAN 15 MG TABLET PO (16:11)
[2021-11-13] MEDS: FUROSEMIDE 40 MG TABLET PO (16:12)
--- NOTE | 2021-11-13 18:32 | ECG_ITS ---
Measurements Intervals [place] Rate: 61 P: 53 SD: 231 QRS: -8 QRSD: 165 T: 135 QT: 513 QTc: 519 Interpretive Statements SINUS RHYTHM WITH FIRST DEGREE AV BLOCK LEFT BUNDLE BRANCH BLOCK BASELINE ARTIFACT- I, III, AVR, AVL ABNORMAL ECG Electronically Signed On 11-14-2021 8:00:40 BAND STRAIGHTENER by Alessandro Tracy D.O.
--- NOTE | 2021-11-13 18:39 | PM.IMPN ---
Progress Note: A&P Assessment and Plan (1) Acute on chronic congestive heart failure: Code(s): I50.9 - Heart failure, unspecified Status: Acute Assessment and Plan: New onset of systolic heart failure -echocardiogram EF is 30-35% with diastolic dysfunction, Severe hypokinesis of the anterolateral and anteroseptal areas with akinesis of the apex. Which is a significant decline since June ejection fraction 65-70% grade 2 diastolic dysfunction no significant valvular disease -could be due to new onset AFib or causing the AFib -continue oral lasix -repeat chest imaging with small effusions -urinary catheter was implemented for accurate intake and output. Since this is improved and we are going to oral Lasix this was discontinued -cardiology consulted, continue Lipitor, lisinopril, and metoprolol. On Xarelto. -new chest heaviness starting at 2pm but notified us at 7pm. Draw trop and obtain EKG. (2) Acute and chronic respiratory failure: Code(s): J96.20 - Acute and chronic respiratory failure, unspecified whether with hypoxia or hypercapnia Status: Acute Assessment and Plan: At her baseline 3 L of oxygen -continue home O2 (3) Atrial flutter with rapid ventricular response: Code(s): I48.92 - Unspecified atrial flutter Status: Acute Assessment and Plan: New onset atrial fibrillation with rapid ventricular rate on EKG 11/11/21 -was on a Cardizem drip and transition to amiodarone and she converted aroud midnight. continue oral -cardiology consulted -no signs hyperthyroidism, electrolytes improved -continue Xarelto -Cardiology talked to patient about a life vest, patient does not want this (4) Cardiomyopathy: Code(s): I42.9 - Cardiomyopathy, unspecified Status: Acute Assessment and Plan: New as noted above (5) Acute dyspnea: Code(s): R06.00 - Dyspnea, unspecified Status: Acute Assessment and Plan: Improved with diuresis -continue home oxygen (6) Hypothyroid: Code(s): E03.9 - Hypothyroidism, unspecified Status: Acute Assessment and Plan: TSH 23.100 with a normal T4 and a pending T3 -levothyroxine has been increased (7) Left bundle branch block: Code(s): I44.7 - Left bundle-branch block, unspecified Status: Acute Assessment and Plan: Noted on the EKG -continue with Cardiology recommendations (8) Dementia: Code(s): F03.90 - Unspecified dementia without behavioral disturbance Status: Acute Assessment and Plan: She overall does well with this and is alert and oriented x4 today -continue home meds -plan discussed with family at bedside (9) COPD (chronic obstructive pulmonary disease): Qualifiers: COPD type: unspecified COPD Qualified Code(s): J44.9 - Chronic obstructive pulmonary disease, unspecified Code(s): J44.9 - Chronic obstructive pulmonary disease, unspecified Status: Acute Assessment and Plan: No wheezing noted on exam -no signs of exacerbation (10) KAYLA on CPAP: Code(s): G47.33 - Obstructive sleep apnea (adult) (pediatric); Z99.89 - Dependence on other enabling machines and devices Status: Acute Assessment and Plan: Continue home CPAP settings (11) Essential hypertension: Code(s): I10 - Essential (primary) hypertension Status: Acute Assessment and Plan: Last blood pressure 119/41 -continue Lasix, lisinopril and metoprolol (12) Mixed hyperlipidemia: Code(s): E78.2 - Mixed hyperlipidemia Status: Acute Assessment and Plan: Continue Lipitor (13) Pneumonia: Code(s): J18.9 - Pneumonia, unspecified organism Status: Acute Assessment and Plan: Chest xray shows bilateral infiltrates which could indicate pneumonia -she was on cefepime and vancomycin but this looks more like CHF. CTA does not
[2021-11-13 19:43] LABS: Troponin I < 0.012 ng/mL (0.000-0.034)
[2021-11-13] MEDS: DONEPEZIL HCL 10 MG TABLET PO (20:50)
[2021-11-13] MEDS: ATORVASTATIN 40 MG TABLET PO (20:50)
[2021-11-14] VITALS (15 sets, daily range): BP systolic 120–135; BP diastolic 41–88; PULSE 55–115; RESP 16–22; TEMP 35.7–36.9; O2SAT 100
[2021-11-14 05:27] LABS: Anion Gap 5 mmol/L (8-16); Blood Urea Nitrogen 33 mg/dL (7-17); Calcium 8.6 mg/dL (8.4-10.2); Carbon Dioxide 35 mmol/L (22-30); Chloride 94 mmol/L (98-107); Estimated CRCL calculation 29 ml/min; Estimated Glomerular Filt Rate 36; Glucose 129 mg/dL (65-110); Potassium 3.5 mmol/L (3.4-5.0); Sodium 134 mmol/L (137-145)
[2021-11-14] MEDS: LEVOTHYROXINE SODIUM 125 MCG TABLET PO (06:08)
[2021-11-14] MEDS: POTASSIUM CHLORIDE 20 MEQ TABLET.ER PO (08:04)
[2021-11-14] MEDS: FERROUS SULFATE 324 MG TABLET PO ×2 (08:04→17:44)
[2021-11-14] MEDS: DULoxetine HCL 60 MG CAPSULE.DR PO (08:05)
[2021-11-14] MEDS: AMIODARONE HCL 200 MG TABLET 400 MG PO ×2 (08:05→17:44)
[2021-11-14] MEDS: MEMANTINE 10 MG TABLET PO ×2 (08:06→20:10)
[2021-11-14] MEDS: EZETIMIBE 10 MG TABLET PO (08:06)
[2021-11-14] MEDS: FAMOTIDINE 20 MG TABLET 40 MG PO (08:06)
[2021-11-14] MEDS: MIRABEGRON 50 MG ER TABLET PO (08:07)
[2021-11-14] MEDS: PANTOPRAZOLE SOD SESQUIHYDRATE 20 MG TAB PO (08:07)
[2021-11-14] MEDS: METOPROLOL TARTRATE 25 MG TABLET PO ×2 (08:07→20:11)
[2021-11-14] MEDS: polyethylene glycoL 3350 17 GM POWD.PACK PO (08:07)
--- NOTE | 2021-11-14 09:03 | PM.IMPN ---
Progress Note: A&P Assessment and Plan (1) Acute on chronic congestive heart failure: Code(s): I50.9 - Heart failure, unspecified Status: Acute Assessment and Plan: New onset of systolic heart failure this hospital stay -echocardiogram EF is 30-35% with diastolic dysfunction, Severe hypokinesis of the anterolateral and anteroseptal areas with akinesis of the apex. Which is a significant decline since June ejection fraction 65-70% grade 2 diastolic dysfunction no significant valvular disease -could be due to new onset AFib or causing the AFib - hold oral Lasix today, her creatinine is rising and the patient states she feels run down and weird . we will see if that helps. -repeat chest imaging 11/12 with small effusions -cardiology consulted, continue Lipitor, and metoprolol. On Xarelto. lisinopril on hold - patient had chest heaviness yesterday but EKG showed No signs of ACS and troponin was normal. She says she has not had any further chest pain (2) Acute and chronic respiratory failure: Code(s): J96.20 - Acute and chronic respiratory failure, unspecified whether with hypoxia or hypercapnia Status: Acute Assessment and Plan: At her baseline 3 L of oxygen -continue home O2 (3) Atrial flutter with rapid ventricular response: Code(s): I48.92 - Unspecified atrial flutter Status: Acute Assessment and Plan: New onset atrial fibrillation with rapid ventricular rate on EKG 11/11/21 -was on a Cardizem drip and transition to amiodarone and now in normal sinus rhythm. -cardiology consulted -no signs hyperthyroidism, electrolytes improved -continue Xarelto -Cardiology talked to patient about a life vest, patient does not want this (4) Cardiomyopathy: Code(s): I42.9 - Cardiomyopathy, unspecified Status: Acute Assessment and Plan: New as noted above (5) Acute dyspnea: Code(s): R06.00 - Dyspnea, unspecified Status: Acute Assessment and Plan: Improved with diuresis -continue home oxygen (6) Hypothyroid: Code(s): E03.9 - Hypothyroidism, unspecified Status: Acute Assessment and Plan: TSH 23.100 with a normal T4 and a pending T3 -levothyroxine has been increased (7) Left bundle branch block: Code(s): I44.7 - Left bundle-branch block, unspecified Status: Acute Assessment and Plan: Noted on the EKG -continue with Cardiology recommendations (8) Dementia: Code(s): F03.90 - Unspecified dementia without behavioral disturbance Status: Acute Assessment and Plan: She overall does well with this and is alert and oriented x4 today -continue home meds -plan discussed with family at bedside (9) COPD (chronic obstructive pulmonary disease): Qualifiers: COPD type: unspecified COPD Qualified Code(s): J44.9 - Chronic obstructive pulmonary disease, unspecified Code(s): J44.9 - Chronic obstructive pulmonary disease, unspecified Status: Acute Assessment and Plan: No wheezing noted on exam -no signs of exacerbation (10) KAYLA on CPAP: Code(s): G47.33 - Obstructive sleep apnea (adult) (pediatric); Z99.89 - Dependence on other enabling machines and devices Status: Acute Assessment and Plan: Continue home CPAP settings (11) Essential hypertension: Code(s): I10 - Essential (primary) hypertension Status: Acute Assessment and Plan: Last blood pressure 132/56 -continue metoprolol -Lasix and lisinopril on hold (12) Mixed hyperlipidemia: Code(s): E78.2 - Mixed hyperlipidemia Status: Acute Assessment and Plan: Continue Lipitor, check CK (13) Pneumonia: Code(s): J18.9 - Pneumonia, unspecified organism Status: Acute Assessment and Plan: She was on cefepime and vancomycin but chest CT looks more like CHF with no mention of p
--- NOTE | 2021-11-14 09:19 | PM.PNCARD ---
Progress Note: A&P Assessment and Plan (1) Atrial flutter with rapid ventricular response: Code(s): I48.92 - Unspecified atrial flutter Status: Acute Assessment and Plan: New onset of atrial flutter RVR, probably related to age, hypertension, cardiomyopathy etc. TSH is high rather than low. Converted to sinus rhythm previously but recurred currents of AFib with RVR last night. Currently receiving IV amiodarone and converted back to sinus rhythm. Continue oral amiodarone and lower dose within the next 1-2 days Continue metoprolol 25 p.o. b.i.d. CHADS2-VASC score 5, at high risk of CVA. Pt's fall risk is low since she is WC-bound. Now on Xarelto 15mg daily. (2) Acute systolic (congestive) heart failure: Code(s): I50.21 - Acute systolic (congestive) heart failure Status: Acute Assessment and Plan: Acute CHF with a left pleural effusion. EF 30-35%. Unclear if this is the result of her a flutter RVR or the cause of her atrial flutter RVR--more likely the former as her EF was normal in June and hopefully the EF will improve w/ HR control. Shortness of breath and lower extremity swelling have improved. Laying flat on the bed today. Will reduce her furosemide to 40 mg p.o. daily today. KCL 40 mEq p.o. x1 Cont metoprolol and lisinopril Daily BMP Compression stockings (3) Cardiomyopathy: Code(s): I42.9 - Cardiomyopathy, unspecified Status: Acute Assessment and Plan: New cardiomyopathy most likely 2nd a flutter RVR. Could be 2nd to LBBB, but her decline has been abrupt so unlikely. She has segmental wall motion abnormalities and chest tightness which suggests CAD but Troponins are flat however, so no evidence of STEMI or ACS, though may have some CAD and ischemia related to heart rate. Treat w/ BB, ACEI, diuretics LV function will probably improve with rate control, so did not start Entresto (4) Left bundle branch block: Code(s): I44.7 - Left bundle-branch block, unspecified Status: Acute Assessment and Plan: Chronic left bundle-branch block. (5) Essential hypertension: Code(s): I10 - Essential (primary) hypertension Status: Acute Assessment and Plan: Hypertension with blood pressure at goal. (6) Weakness: Code(s): R53.1 - Weakness Status: Acute Assessment and Plan: Pt WC bound since hip fx, poor endurance 2nd COPD and now CHF. Daughter would like another Ph Tx eval; has run out of Medicare benefits from hip fx. Further disposition re: home services per hospitalist. Subjective Date/time seen: 11/14/21 09:19 Interval history: Follow-up new onset atrial flutter RVR, new onset CHF and cardiomyopathy. Echo this admission showed a decline in LV function, EF now 30-35% with segmental wall motion abnormalities and moderate mitral regurgitation. 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 Date of service 11/09/2021: Yesterday pt converted to NSR. I increased her metoprolol to 25 mg b.i.d., discontinued her Cardizem drip, and we continued her GERRY-inhibitor as well as started in IV furosemide. Today heart rate is 60s to 80s. She is on 6 L of oxygen. Breathing better. Galindo placed, good diuresis. Abdominal distension improved. Daughter was asking the opinion of pt's RN and me about Hospice as apparently [facility] Burnett had suggested it. In my opinion, she does not appear to be that near . Daughter wonders if she can go back to assisted Living or if she will need a higher level of care/services; hopes we will order more Ph Tx as she has completed all the rehab she can get for her hip surgery. Date of service 11/10/2021: Reverted back to AF RVR earlier today. Was given an extra 50mg metoprolol which converted her to NSR which she remains in now. She feel
--- NOTE | 2021-11-14 11:47 | PC.NURSE ---
Report given to MARTINA Maurice at 1141. All questions answered and plan of care reviewed. Patient to go to 2nd medical room 260.
[2021-11-14] MEDS: RIVAROXABAN 15 MG TABLET PO (17:44)
[2021-11-14] MEDS: DONEPEZIL HCL 10 MG TABLET PO (20:10)
[2021-11-14] MEDS: ATORVASTATIN 40 MG TABLET PO (20:11)
[2021-11-15] VITALS (7 sets, daily range): BP systolic 130–136; BP diastolic 42–47; PULSE 57–63; RESP 16–18; TEMP 36.1–36.6; O2SAT 100
[2021-11-15] MEDS: LEVOTHYROXINE SODIUM 125 MCG TABLET PO (05:39)
[2021-11-15 06:21] LABS: Hematocrit 27.2 % (37.0-47.0); Hemoglobin 8.4 g/dL (12.0-15.0); Mean Corpuscular HGB Conc 30.9 g/dl (32-36); Mean Corpuscular Hemoglobin 28.5 pg (26-34); Mean Corpuscular Volume 92.2 fl (80-100); Mean Platelet Volume 12.2 fl (7.4-10.4); Platelet Count Result 186 k/mm3 (150-375); Red Blood Count 2.95 M/mm3 (4.2-5.4)
[2021-11-15 06:49] LABS: Anion Gap 7 mmol/L (8-16); Blood Urea Nitrogen 32 mg/dL (7-17); Carbon Dioxide 35 mmol/L (22-30); Chloride 93 mmol/L (98-107); Creatine Kinase < 20 U/L (30-135); Estimated CRCL calculation 34 ml/min; Estimated Glomerular Filt Rate 43; Glucose 119 mg/dL (65-110); Potassium 3.9 mmol/L (3.4-5.0); Sodium 135 mmol/L (137-145)
[2021-11-15] MEDS: MIRABEGRON 50 MG ER TABLET PO (09:37)
[2021-11-15] MEDS: polyethylene glycoL 3350 17 GM POWD.PACK PO (09:37)
[2021-11-15] MEDS: METOPROLOL TARTRATE 25 MG TABLET PO ×2 (09:37→20:59)
[2021-11-15] MEDS: MEMANTINE 10 MG TABLET PO ×2 (09:37→20:59)
[2021-11-15] MEDS: PANTOPRAZOLE SOD SESQUIHYDRATE 20 MG TAB PO (09:37)
[2021-11-15] MEDS: AMIODARONE HCL 200 MG TABLET 400 MG PO (09:38)
[2021-11-15] MEDS: FAMOTIDINE 20 MG TABLET 40 MG PO (09:38)
[2021-11-15] MEDS: DULoxetine HCL 60 MG CAPSULE.DR PO (09:39)
[2021-11-15] MEDS: POTASSIUM CHLORIDE 20 MEQ TABLET.ER PO (09:39)
[2021-11-15] MEDS: FERROUS SULFATE 324 MG TABLET PO ×2 (09:39→17:36)
[2021-11-15] MEDS: EZETIMIBE 10 MG TABLET PO (09:39)
[2021-11-15 09:41] LABS: Add Urine Microscopic? NO; Appearance Urine Clear (Clear); Bilirubin Urine Negative (Negative); Blood Urine Negative (Negative); Color Urine Yellow (Yellow); Glucose Urine UA Negative (Negative); Ketones Urine Negative (Negative); Leukocyte Esterase Ur Negative LEU/UL (Negative); Nitrate Urine Negative (Negative); Protein Urine Negative (Negative); Specific Grav Ur 1.019 (1.001-1.035); Urobilinogen Urine Negative mg/dL (<2.0)
--- NOTE | 2021-11-15 10:42 | PM.PNCARD ---
Progress Note: A&P Assessment and Plan (1) Atrial flutter with rapid ventricular response: Code(s): I48.92 - Unspecified atrial flutter Status: Acute Assessment and Plan: New onset of atrial flutter RVR, probably related to age, hypertension, cardiomyopathy etc. TSH is high rather than low. Converted to sinus rhythm previously but recurred currents of AFib with RVR last night. Currently receiving IV amiodarone and converted back to sinus rhythm. will lower amiodarone to 200 mg p.o. b.i.d. Continue metoprolol 25 p.o. b.i.d. CHADS2-VASC score 5, at high risk of CVA. Pt's fall risk is low since she is WC-bound. Now on Xarelto 15mg daily. (2) Acute systolic (congestive) heart failure: Code(s): I50.21 - Acute systolic (congestive) heart failure Status: Acute Assessment and Plan: Acute CHF with a left pleural effusion. EF 30-35%. Unclear if this is the result of her a flutter RVR or the cause of her atrial flutter RVR--more likely the former as her EF was normal in June and hopefully the EF will improve w/ HR control. Shortness of breath and lower extremity swelling have improved. Laying flat on the bed today. continue furosemide 40 mg daily Cont metoprolol and lisinopril Daily BMP Compression stockings (3) Cardiomyopathy: Code(s): I42.9 - Cardiomyopathy, unspecified Status: Acute Assessment and Plan: New cardiomyopathy most likely 2nd a flutter RVR. Could be 2nd to LBBB, but her decline has been abrupt so unlikely. She has segmental wall motion abnormalities and chest tightness which suggests CAD but Troponins are flat however, so no evidence of STEMI or ACS, though may have some CAD and ischemia related to heart rate. Treat w/ BB, ACEI, diuretics LV function will probably improve with rate control, so did not start Entresto (4) Left bundle branch block: Code(s): I44.7 - Left bundle-branch block, unspecified Status: Acute Assessment and Plan: Chronic left bundle-branch block. (5) Essential hypertension: Code(s): I10 - Essential (primary) hypertension Status: Acute Assessment and Plan: Hypertension with blood pressure at goal. (6) Weakness: Code(s): R53.1 - Weakness Status: Acute Assessment and Plan: Pt WC bound since hip fx, poor endurance 2nd COPD and now CHF. Daughter would like another Ph Tx eval; has run out of Medicare benefits from hip fx. Further disposition re: home services per hospitalist. Subjective Date/time seen: 11/15/21 10:42 Interval history: Follow-up new onset atrial flutter RVR, new onset CHF and cardiomyopathy. Echo this admission showed a decline in LV function, EF now 30-35% with segmental wall motion abnormalities and moderate mitral regurgitation. 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 Date of service 11/09/2021: Yesterday pt converted to NSR. I increased her metoprolol to 25 mg b.i.d., discontinued her Cardizem drip, and we continued her GERRY-inhibitor as well as started in IV furosemide. Today heart rate is 60s to 80s. She is on 6 L of oxygen. Breathing better. Galindo placed, good diuresis. Abdominal distension improved. Daughter was asking the opinion of pt's RN and me about Hospice as apparently [facility] Burnett had suggested it. In my opinion, she does not appear to be that near . Daughter wonders if she can go back to assisted Living or if she will need a higher level of care/services; hopes we will order more Ph Tx as she has completed all the rehab she can get for her hip surgery. Date of service 11/10/2021: Reverted back to AF RVR earlier today. Was given an extra 50mg metoprolol which converted her to NSR which she remains in now. She feels tired today, mild shortness of breath. She does not have a
--- NOTE | 2021-11-15 11:40 | PM.IMPN ---
Progress Note: A&P Assessment and Plan (1) Acute on chronic congestive heart failure: Code(s): I50.9 - Heart failure, unspecified Status: Acute Assessment and Plan: New onset of systolic heart failure this hospital stay -echocardiogram EF is 30-35% with diastolic dysfunction, Severe hypokinesis of the anterolateral and anteroseptal areas with akinesis of the apex. Which is a significant decline since June ejection fraction 65-70% grade 2 diastolic dysfunction no significant valvular disease -could be due to new onset AFib or causing the AFib - hold oral Lasix again today, may restart tomorrow -repeat chest imaging 11/12 with small effusions -cardiology consulted, continue Lipitor, and metoprolol. On Xarelto. lisinopril on hold (2) Acute and chronic respiratory failure: Code(s): J96.20 - Acute and chronic respiratory failure, unspecified whether with hypoxia or hypercapnia Status: Acute Assessment and Plan: At her baseline 3 L of oxygen -continue home O2 (3) Atrial flutter with rapid ventricular response: Code(s): I48.92 - Unspecified atrial flutter Status: Acute Assessment and Plan: New onset atrial fibrillation with rapid ventricular rate on EKG 11/11/21 -was on a Cardizem drip and transition to amiodarone and now in normal sinus rhythm. -cardiology consulted -no signs hyperthyroidism, electrolytes improved -continue Xarelto -Cardiology talked to patient about a life vest, patient does not want this (4) Cardiomyopathy: Code(s): I42.9 - Cardiomyopathy, unspecified Status: Acute Assessment and Plan: New as noted above (5) Acute dyspnea: Code(s): R06.00 - Dyspnea, unspecified Status: Acute Assessment and Plan: Improved with diuresis -continue home oxygen (6) Hypothyroid: Code(s): E03.9 - Hypothyroidism, unspecified Status: Acute Assessment and Plan: TSH 23.100 with a normal T4 and a pending T3 -levothyroxine has been increased (7) Left bundle branch block: Code(s): I44.7 - Left bundle-branch block, unspecified Status: Acute Assessment and Plan: Noted on the EKG -continue with Cardiology recommendations (8) Dementia: Code(s): F03.90 - Unspecified dementia without behavioral disturbance Status: Acute Assessment and Plan: She overall does well with this and is alert and oriented x4 today -continue home meds (9) COPD (chronic obstructive pulmonary disease): Qualifiers: COPD type: unspecified COPD Qualified Code(s): J44.9 - Chronic obstructive pulmonary disease, unspecified Code(s): J44.9 - Chronic obstructive pulmonary disease, unspecified Status: Acute Assessment and Plan: No wheezing noted on exam -no signs of exacerbation (10) KAYLA on CPAP: Code(s): G47.33 - Obstructive sleep apnea (adult) (pediatric); Z99.89 - Dependence on other enabling machines and devices Status: Acute Assessment and Plan: Continue home CPAP settings (11) Essential hypertension: Code(s): I10 - Essential (primary) hypertension Status: Acute Assessment and Plan: Last blood pressure 134/42 -continue metoprolol -Lasix and lisinopril on hold (12) Mixed hyperlipidemia: Code(s): E78.2 - Mixed hyperlipidemia Status: Acute Assessment and Plan: Continue Lipitor (13) Pneumonia: Code(s): J18.9 - Pneumonia, unspecified organism Status: Acute Assessment and Plan: She was on cefepime and vancomycin but chest CT looks more like CHF with no mention of pneumonia. She does not have any symptoms of pneumonia. antibiotics were stopped -Chest xray on admission showed bilateral infiltrates which could indicate pneumonia but repeat CT okay as above -no fever or leukocytosis -COVID-19 appears less likely at this time (14
[2021-11-15 11:54] LABS: Hematocrit 29.3 % (37.0-47.0)
[2021-11-15] MEDS: AMIODARONE HCL 200 MG TABLET PO (17:37)
[2021-11-15] MEDS: RIVAROXABAN 15 MG TABLET PO (17:37)
[2021-11-15] MEDS: DONEPEZIL HCL 10 MG TABLET PO (20:58)
[2021-11-15] MEDS: ATORVASTATIN 40 MG TABLET PO (20:58)
[2021-11-16] VITALS (9 sets, daily range): BP systolic 130–136; BP diastolic 44–55; PULSE 51–63; RESP 14–18; TEMP 36.3–36.7; O2SAT 96–100
[2021-11-16 05:05] LABS: Hematocrit 27.7 % (37.0-47.0); Hemoglobin 8.6 g/dL (12.0-15.0)
[2021-11-16 05:32] LABS: Alanine Aminotransferase 22 U/L (4-35); Albumin Level 3.5 g/dL (3.5-5.1); Alkaline Phosphatase 68 U/L (38-126); Anion Gap 5 mmol/L (8-16); Aspartate Amino Transferase 39 U/L (14-36); Bilirubin,Total 0.4 mg/dL (0.2-1.3); Blood Urea Nitrogen 27 mg/dL (7-17); Calcium 9.1 mg/dL (8.4-10.2); Carbon Dioxide 35 mmol/L (22-30); Chloride 97 mmol/L (98-107); Estimated CRCL calculation 34 ml/min; Estimated Glomerular Filt Rate 43; Glucose 134 mg/dL (65-110); Potassium 4.4 mmol/L (3.4-5.0); Sodium 137 mmol/L (137-145)
[2021-11-16] MEDS: LEVOTHYROXINE SODIUM 125 MCG TABLET PO (05:41)
[2021-11-16] MEDS: polyethylene glycoL 3350 17 GM POWD.PACK PO (08:38)
[2021-11-16] MEDS: METOPROLOL TARTRATE 25 MG TABLET PO ×2 (08:39→20:27)
[2021-11-16] MEDS: MIRABEGRON 50 MG ER TABLET PO (08:39)
[2021-11-16] MEDS: FAMOTIDINE 20 MG TABLET 40 MG PO (08:39)
[2021-11-16] MEDS: MEMANTINE 10 MG TABLET PO ×2 (08:39→20:22)
[2021-11-16] MEDS: PANTOPRAZOLE SOD SESQUIHYDRATE 20 MG TAB PO (08:39)
[2021-11-16] MEDS: FUROSEMIDE 40 MG TABLET PO (08:39)
[2021-11-16] MEDS: POTASSIUM CHLORIDE 20 MEQ TABLET.ER PO (08:39)
[2021-11-16] MEDS: EZETIMIBE 10 MG TABLET PO (08:40)
[2021-11-16] MEDS: AMIODARONE HCL 200 MG TABLET PO ×2 (08:40→17:21)
[2021-11-16] MEDS: FERROUS SULFATE 324 MG TABLET PO ×2 (08:40→17:20)
[2021-11-16] MEDS: DULoxetine HCL 60 MG CAPSULE.DR PO (08:40)
--- NOTE | 2021-11-16 09:24 | PM.PNCARD ---
Progress Note: A&P Assessment and Plan (1) Atrial flutter with rapid ventricular response: Code(s): I48.92 - Unspecified atrial flutter Status: Acute Assessment and Plan: New onset of atrial flutter RVR, probably related to age, hypertension, cardiomyopathy etc. TSH is high rather than low. Converted to sinus rhythm previously but recurred currents of AFib with RVR last night. Continue amiodarone at current dose. Continue metoprolol 25 p.o. b.i.d. CHADS2-VASC score 5, at high risk of CVA. Pt's fall risk is low since she is WC-bound. Now on Xarelto 15mg daily. (2) Acute systolic (congestive) heart failure: Code(s): I50.21 - Acute systolic (congestive) heart failure Status: Acute Assessment and Plan: Acute CHF with a left pleural effusion. EF 30-35%. Unclear if this is the result of her a flutter RVR or the cause of her atrial flutter RVR--more likely the former as her EF was normal in June and hopefully the EF will improve w/ HR control. Shortness of breath and lower extremity swelling have improved. Laying flat on the bed today. continue furosemide 40 mg daily Cont metoprolol and lisinopril Daily BMP Compression stockings She sounds a bit more congested today. Will give her 40 mg of IV furosemide x1. Basic metabolic panel in the more (3) Cardiomyopathy: Code(s): I42.9 - Cardiomyopathy, unspecified Status: Acute Assessment and Plan: New cardiomyopathy most likely 2nd a flutter RVR. Could be 2nd to LBBB, but her decline has been abrupt so unlikely. She has segmental wall motion abnormalities and chest tightness which suggests CAD but Troponins are flat however, so no evidence of STEMI or ACS, though may have some CAD and ischemia related to heart rate. Treat w/ BB, ACEI, diuretics LV function will probably improve with rate control, so did not start Entresto (4) Left bundle branch block: Code(s): I44.7 - Left bundle-branch block, unspecified Status: Acute Assessment and Plan: Chronic left bundle-branch block. (5) Essential hypertension: Code(s): I10 - Essential (primary) hypertension Status: Acute Assessment and Plan: Hypertension with blood pressure at goal. (6) Weakness: Code(s): R53.1 - Weakness Status: Acute Assessment and Plan: Pt WC bound since hip fx, poor endurance 2nd COPD and now CHF. Daughter would like another Ph Tx nadia; has run out of Medicare benefits from hip fx. Further disposition re: home services per hospitalist. (7) Phlebitis: Code(s): I80.9 - Phlebitis and thrombophlebitis of unspecified site Status: Acute Assessment and Plan: It appears that she has phlebitis involving the right arm. She should have her IV discontinued on that side. Right upper extremity venous Doppler will be ordered. Warm compression and notification of hospitalist. This was discussed with her nurse Subjective Date/time seen: 11/16/21 09:24 Interval history: Follow-up new onset atrial flutter RVR, new onset CHF and cardiomyopathy. Echo this admission showed a decline in LV function, EF now 30-35% with segmental wall motion abnormalities and moderate mitral regurgitation. 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 Date of service 11/09/2021: Yesterday pt converted to NSR. I increased her metoprolol to 25 mg b.i.d., discontinued her Cardizem drip, and we continued her GERRY-inhibitor as well as started in IV furosemide. Today heart rate is 60s to 80s. She is on 6 L of oxygen. Breathing better. Galindo placed, good diuresis. Abdominal distension improved. Daughter was asking the opinion of pt's RN and me about Hospice as apparently Marixa Burnett had suggested it. In my opinion, she does not appear to be that near
--- NOTE | 2021-11-16 10:54 | PM.IMPN ---
Progress Note: A&P Assessment and Plan (1) Acute on chronic congestive heart failure: Code(s): I50.9 - Heart failure, unspecified Status: Acute Assessment and Plan: New onset of systolic heart failure this hospital stay -echocardiogram EF is 30-35% with diastolic dysfunction, Severe hypokinesis of the anterolateral and anteroseptal areas with akinesis of the apex. Which is a significant decline since June ejection fraction 65-70% grade 2 diastolic dysfunction no significant valvular disease -could be due to new onset AFib or causing the AFib -Lasix restarted today per cardiology -repeat chest imaging 11/12 with small effusions -cardiology consulted, continue Lipitor, and metoprolol. On Xarelto. lisinopril on hold (2) Acute and chronic respiratory failure: Code(s): J96.20 - Acute and chronic respiratory failure, unspecified whether with hypoxia or hypercapnia Status: Acute Assessment and Plan: At her baseline 3 L of oxygen -continue home O2 (3) Atrial flutter with rapid ventricular response: Code(s): I48.92 - Unspecified atrial flutter Status: Acute Assessment and Plan: New onset atrial fibrillation with rapid ventricular rate on EKG 11/11/21 -was on a Cardizem drip and transition to amiodarone and now in normal sinus rhythm. -cardiology consulted -no signs hyperthyroidism, electrolytes improved -continue Xarelto -Cardiology talked to patient about a life vest, patient does not want this (4) Cardiomyopathy: Code(s): I42.9 - Cardiomyopathy, unspecified Status: Acute Assessment and Plan: New as noted above (5) Acute dyspnea: Code(s): R06.00 - Dyspnea, unspecified Status: Acute Assessment and Plan: Improved with diuresis -continue home oxygen (6) Hypothyroid: Code(s): E03.9 - Hypothyroidism, unspecified Status: Acute Assessment and Plan: TSH 23.100 with a normal T4 and a pending T3 -levothyroxine has been increased (7) Left bundle branch block: Code(s): I44.7 - Left bundle-branch block, unspecified Status: Acute Assessment and Plan: Noted on the EKG -continue with Cardiology recommendations (8) Dementia: Code(s): F03.90 - Unspecified dementia without behavioral disturbance Status: Acute Assessment and Plan: She overall does well with this and is alert and oriented x4 today -continue home meds (9) COPD (chronic obstructive pulmonary disease): Qualifiers: COPD type: unspecified COPD Qualified Code(s): J44.9 - Chronic obstructive pulmonary disease, unspecified Code(s): J44.9 - Chronic obstructive pulmonary disease, unspecified Status: Acute Assessment and Plan: No wheezing noted on exam -no signs of exacerbation (10) KAYLA on CPAP: Code(s): G47.33 - Obstructive sleep apnea (adult) (pediatric); Z99.89 - Dependence on other enabling machines and devices Status: Acute Assessment and Plan: Continue home CPAP settings (11) Essential hypertension: Code(s): I10 - Essential (primary) hypertension Status: Acute Assessment and Plan: Last blood pressure 135/55 -continue metoprolol -Lasix and lisinopril on hold (12) Mixed hyperlipidemia: Code(s): E78.2 - Mixed hyperlipidemia Status: Acute Assessment and Plan: Continue Lipitor (13) Pneumonia: Code(s): J18.9 - Pneumonia, unspecified organism Status: Acute Assessment and Plan: She was on cefepime and vancomycin but chest CT looks more like CHF with no mention of pneumonia. She does not have any symptoms of pneumonia. antibiotics were stopped -Chest xray on admission showed bilateral infiltrates which could indicate pneumonia but repeat CT okay as above -no fever or leukocytosis -COVID-19 appears less likely at this time (14) Unintentiona
[2021-11-16] MEDS: FUROSEMIDE INJ 40 MG/4 ML VIAL IV PUSH (12:31)
[2021-11-16] MEDS: DOXYCYCLINE HYCLATE 100 MG TABLET PO ×2 (12:31→21:41)
[2021-11-16] MEDS: ACETAMINOPHEN 325 MG TABLET 650 MG PO (14:08)
[2021-11-16] MEDS: ONDANSETRON INJ 4 MG/2 ML VIAL IV PUSH (14:08)
[2021-11-16] MEDS: RIVAROXABAN 15 MG TABLET PO (17:20)
[2021-11-16] MEDS: ATORVASTATIN 40 MG TABLET PO (20:21)
[2021-11-16] MEDS: DONEPEZIL HCL 10 MG TABLET PO (20:21)
[2021-11-16] MEDS: traZODone HCL 50 MG TABLET 150 MG PO (21:41)
[2021-11-17] VITALS (7 sets, daily range): BP systolic 120–134; BP diastolic 44–75; PULSE 53–58; RESP 16–17; TEMP 36.2–37; O2SAT 100
[2021-11-17] MEDS: LEVOTHYROXINE SODIUM 125 MCG TABLET PO (05:30)
[2021-11-17 05:53] LABS: Estimated CRCL calculation 34 ml/min; Estimated Glomerular Filt Rate 43
[2021-11-17] MEDS: POTASSIUM CHLORIDE 20 MEQ TABLET.ER PO (08:41)
[2021-11-17] MEDS: FERROUS SULFATE 324 MG TABLET PO ×2 (08:41→16:44)
[2021-11-17] MEDS: FAMOTIDINE 20 MG TABLET 40 MG PO (08:43)
[2021-11-17] MEDS: FUROSEMIDE 40 MG TABLET PO (08:43)
[2021-11-17] MEDS: MEMANTINE 10 MG TABLET PO (08:43)
[2021-11-17] MEDS: DULoxetine HCL 60 MG CAPSULE.DR PO (08:43)
[2021-11-17] MEDS: EZETIMIBE 10 MG TABLET PO (08:43)
[2021-11-17] MEDS: METOPROLOL TARTRATE 25 MG TABLET PO (08:44)
[2021-11-17] MEDS: MIRABEGRON 50 MG ER TABLET PO (08:44)
[2021-11-17] MEDS: polyethylene glycoL 3350 17 GM POWD.PACK PO (08:45)
--- NOTE | 2021-11-17 09:29 | PM.PNCARD ---
Progress Note: A&P Assessment and Plan (1) Atrial flutter with rapid ventricular response: Code(s): I48.92 - Unspecified atrial flutter Status: Acute Assessment and Plan: New onset of atrial flutter RVR, probably related to age, hypertension, cardiomyopathy etc. TSH is high rather than low. Converted to sinus rhythm previously but recurred currents of AFib with RVR last night. Continue amiodarone at current dose. Continue metoprolol 25 p.o. b.i.d. CHADS2-VASC score 5, at high risk of CVA. Pt's fall risk is low since she is WC-bound. Now on Xarelto 15mg daily. (2) Acute systolic (congestive) heart failure: Code(s): I50.21 - Acute systolic (congestive) heart failure Status: Acute Assessment and Plan: Acute CHF with a left pleural effusion. EF 30-35%. Unclear if this is the result of her a flutter RVR or the cause of her atrial flutter RVR--more likely the former as her EF was normal in June and hopefully the EF will improve w/ HR control. Shortness of breath and lower extremity swelling have improved. Laying flat on the bed today. continue furosemide 40 mg daily Cont metoprolol and lisinopril Daily BMP Compression stockings She still sounds congested. In addition to her oral furosemide which is already scheduled, give her additional 40 mg IV furosemide x1. Basic metabolic panel in the morning (3) Cardiomyopathy: Code(s): I42.9 - Cardiomyopathy, unspecified Status: Acute Assessment and Plan: New cardiomyopathy most likely 2nd a flutter RVR. Could be 2nd to LBBB, but her decline has been abrupt so unlikely. She has segmental wall motion abnormalities and chest tightness which suggests CAD but Troponins are flat however, so no evidence of STEMI or ACS, though may have some CAD and ischemia related to heart rate. Treat w/ BB, ACEI, diuretics LV function will probably improve with rate control, so did not start Entresto (4) Left bundle branch block: Code(s): I44.7 - Left bundle-branch block, unspecified Status: Acute Assessment and Plan: Chronic left bundle-branch block. (5) Essential hypertension: Code(s): I10 - Essential (primary) hypertension Status: Acute Assessment and Plan: Hypertension with blood pressure at goal. (6) Weakness: Code(s): R53.1 - Weakness Status: Acute Assessment and Plan: Pt WC bound since hip fx, poor endurance 2nd COPD and now CHF. Daughter would like another Ph Tx eval; has run out of Medicare benefits from hip fx. Further disposition re: home services per hospitalist. (7) Phlebitis: Code(s): I80.9 - Phlebitis and thrombophlebitis of unspecified site Status: Acute Assessment and Plan: Warm compresses Subjective Date/time seen: 11/17/21 09:29 Interval history: Follow-up new onset atrial flutter RVR, new onset CHF and cardiomyopathy. Echo this admission showed a decline in LV function, EF now 30-35% with segmental wall motion abnormalities and moderate mitral regurgitation. 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 Date of service 11/09/2021: Yesterday pt converted to NSR. I increased her metoprolol to 25 mg b.i.d., discontinued her Cardizem drip, and we continued her GERRY-inhibitor as well as started in IV furosemide. Today heart rate is 60s to 80s. She is on 6 L of oxygen. Breathing better. Galindo placed, good diuresis. Abdominal distension improved. Daughter was asking the opinion of pt's RN and me about Hospice as apparently Marixa Burnett had suggested it. In my opinion, she does not appear to be that near . Daughter wonders if she can go back to assisted Living or if she will need a higher level of care/services; hopes we will order more Ph Tx as she has completed all the rehab
[2021-11-17] MEDS: AMIODARONE HCL 200 MG TABLET PO ×2 (10:45→16:44)
[2021-11-17] MEDS: FUROSEMIDE INJ 40 MG/4 ML VIAL IV PUSH (10:45)
[2021-11-17] MEDS: DOXYCYCLINE HYCLATE 100 MG TABLET PO (12:13)
--- NOTE | 2021-11-17 12:27 | PCNFU ---
Nutrition Follow-Up Complete: Inadequate oral intake related to atrial flutter w/RVR and dyspnea as evidenced by reported average intake of 57% Goal: Meet nutritional needs Goal Pt current nutrition is . Nutrition recommendation: Last recorded weight is 71.5 kg. Bowel Motility: Labs Reviewed: Meds Noted: Skin: Additional Notes: Monitor labs, wt, medications, and reported intake
--- NOTE | 2021-11-17 12:27 | PCNFU ---
Nutrition Follow-Up Complete: Inadequate oral intake related to atrial flutter w/RVR and dyspnea as evidenced by reported average intake of 57% Goal: Meet nutritional needs Patient is progressing towards goal. No new goal at this time. Pt current nutrition is a heart healthy diet. Last recorded weight is 71.5 kg. Recommend re-weighing prior to discharge. Bowel Motility: +BM 11/16/2021 Labs Reviewed: Cr 1.2, GFR 43 Meds Noted: Lipitor, Aricept, Cymbalta, Pacerone, Zetia, Ferrous Sulfate, Lasix, Synthroid, Antivert, Prinivil, Lopressor, Memantine, Protonix, Miralax, Kcl Tablet, Xarelto, Desyrel Skin: No skin breakdown at this time. WNL. Additional Notes: Patient is receiving ensure compact BID providing an additional 220 calories and 9 grams of protein. She has a good appetite consuming 75-100% of all meals ordered. Monitor labs, wt, medications, and reported intake
[2021-11-17] MEDS: ONDANSETRON INJ 4 MG/2 ML VIAL IV PUSH (12:49)
--- NOTE | 2021-11-17 15:34 | PM.DS ---
DS: Admitting Diagnosis Discharge Date 11/17/21 Admitting Diagnosis chf DS: Discharge Diagnosis Discharge Diagnosis (1) Acute on chronic congestive heart failure: Code(s): I50.9 - Heart failure, unspecified Status: Acute Assessment and Plan: New onset of systolic heart failure this hospital stay -echocardiogram EF is 30-35% with diastolic dysfunction, Severe hypokinesis of the anterolateral and anteroseptal areas with akinesis of the apex. Which is a significant decline since June ejection fraction 65-70% grade 2 diastolic dysfunction no significant valvular disease -could be due to new onset AFib or causing the AFib -sent home on aspirin, lisinopril, lasix, metoprolol and xarelto -pt to follow up as desired with cardiology, she is going hospice. (2) Acute and chronic respiratory failure: Code(s): J96.20 - Acute and chronic respiratory failure, unspecified whether with hypoxia or hypercapnia Status: Acute Assessment and Plan: At her baseline 3 L of oxygen -continue home O2 (3) Atrial flutter with rapid ventricular response: Code(s): I48.92 - Unspecified atrial flutter Status: Acute Assessment and Plan: New onset atrial fibrillation with rapid ventricular rate on EKG 11/11/21 -was on a Cardizem drip and transitioned to amiodarone and now in normal sinus rhythm. -cardiology consulted during hospital stay -no signs hyperthyroidism, electrolytes improved -continue Xarelto -Cardiology talked to patient about a life vest, patient does not want this (4) Cardiomyopathy: Code(s): I42.9 - Cardiomyopathy, unspecified Status: Acute Assessment and Plan: New as noted above (5) Acute dyspnea: Code(s): R06.00 - Dyspnea, unspecified Status: Acute Assessment and Plan: Improved with diuresis -continue home oxygen (6) Hypothyroid: Code(s): E03.9 - Hypothyroidism, unspecified Status: Acute Assessment and Plan: TSH 23.100 with a normal T4 and a pending T3 -levothyroxine has been increased (7) Left bundle branch block: Code(s): I44.7 - Left bundle-branch block, unspecified Status: Acute Assessment and Plan: Noted on the EKG (8) Dementia: Code(s): F03.90 - Unspecified dementia without behavioral disturbance Status: Acute Assessment and Plan: She overall does well with this and is alert and oriented x4 today -continue home meds (9) COPD (chronic obstructive pulmonary disease): Qualifiers: COPD type: unspecified COPD Qualified Code(s): J44.9 - Chronic obstructive pulmonary disease, unspecified Code(s): J44.9 - Chronic obstructive pulmonary disease, unspecified Status: Acute Assessment and Plan: No wheezing noted on exam -no signs of exacerbation (10) KAYLA on CPAP: Code(s): G47.33 - Obstructive sleep apnea (adult) (pediatric); Z99.89 - Dependence on other enabling machines and devices Status: Acute Assessment and Plan: Continue home CPAP settings (11) Essential hypertension: Code(s): I10 - Essential (primary) hypertension Status: Acute Assessment and Plan: Last blood pressure 134/52 -continue metoprolol, lasix and metoprolol (12) Mixed hyperlipidemia: Code(s): E78.2 - Mixed hyperlipidemia Status: Acute (13) Pneumonia: Code(s): J18.9 - Pneumonia, unspecified organism Status: Acute Assessment and Plan: She was on cefepime and vancomycin but chest CT looks more like CHF with no mention of pneumonia. She does not have any symptoms of pneumonia. antibiotics were stopped -Chest xray on admission showed bilateral infiltrates which could indicate pneumonia but repeat CT okay as above -no fever or leukocytosis -COVID-19 appears less likely at this time (14) Unintentional weight loss: Code(s): R63.4
[2021-11-17 16:09] LABS: EDCOVIDSCREEN Negative (Negative)
[2021-11-17] MEDS: RIVAROXABAN 15 MG TABLET PO (16:44)
== END 2021-11-17 17:31 | disposition hospice, home (50) | DRG 291 ==
LOC: ANHED 23:38 → ANHIMU 23:57 → ANH2MED 11-10 18:43 → ANHCPC 11-11 09:33 → ANHIMU 11-11 16:10 → ANH2MED 11-14 12:22
PROVIDERS: Nurse Practitioner; Admitting Provider Internal Medicine; Emergency Provider Emergency Medicine; PCP Family Medicine; Visit Provider Physician Assistant
DX: I11.0 Hypertensive heart disease with heart failure (principal); I50.43 Acute on chronic combined systolic (congestive) and diastolic (congestive) heart failure; J96.21 Acute and chronic respiratory failure with hypoxia; F33.9 Major depressive disorder, recurrent, unspecified; I48.4 Atypical atrial flutter; Z20.822 Contact with and (suspected) exposure to COVID-19; Z79.82 Long term (current) use of aspirin; I25.10 Atherosclerotic heart disease of native coronary artery without angina pectoris; I44.7 Left bundle-branch block, unspecified; E78.2 Mixed hyperlipidemia; G47.33 Obstructive sleep apnea (adult) (pediatric); E03.8 Other specified hypothyroidism; M15.0 Primary generalized (osteo)arthritis; N39.41 Urge incontinence; Z66 Do not resuscitate; F03.90 Unspecified dementia, unspecified severity, without behavioral disturbance, psychotic disturbance, mood disturbance, and anxiety; I42.9 Cardiomyopathy, unspecified; Z88.0 Allergy status to penicillin; Z88.2 Allergy status to sulfonamides; E87.8 Other disorders of electrolyte and fluid balance, not elsewhere classified; I48.91 Unspecified atrial fibrillation; R63.4 Abnormal weight loss; Z68.22 Body mass index [BMI] 22.0-22.9, adult; R19.5 Other fecal abnormalities; K64.9 Unspecified hemorrhoids; R51.9 Headache, unspecified; J44.9 Chronic obstructive pulmonary disease, unspecified; I80.9 Phlebitis and thrombophlebitis of unspecified site; G89.29 Other chronic pain; R07.9 Chest pain, unspecified; Z99.81 Dependence on supplemental oxygen; J98.6 Disorders of diaphragm
CPT/HCPCS: 36415; 36600; 51701; 71045; 71250; 74176; 80048; 80053; 80076; 81003; 82274; 82550; 82565; 82805; 82948; 83036; 83605; 83735; 83880; 84439; 84443; 84481; 84484; 85014; 85018; 85025; 85027; 85610; 85730; 87040; 87426; 93005; 93306; 93971; 96365; 96366; 96375; 96376; 97110; 97162; 97165; 97530; 99285; A9270; C9803; G0378; J0282; J0692; J1650; J1940; J2405; J3370; J3475; J7050